=== PATIENT | female | born 1945 | race Caucasian/White ===

== ENCOUNTER → 2016-09-08 | Outpatient (CLI) | payer MEDICARE | LOC: GMAB 17:37 | PROVIDERS: ATTEND Family Medicine | DX: L08.9 Local infection of the skin and subcutaneous tissue, unspecified (principal) ==

== ENCOUNTER 2016-11-07 08:18 | Inpatient (IN) | payer MEDICARE, MEDICAID ==
[2016-11-07] MEDS ORDERED: IPRATROPIUM/ALBUTEROL 3 ML VIAL NEB ONE (08:24)
--- NOTE | 2016-11-07 08:29 | ED.PDOC ---
History of Present Illness - General Chief Complaint: Respiratory Problem Stated Complaint: Shortness of breath and chills Time Seen by Provider: 11/07/16 08:24 Source: patient, RN notes reviewed, Vital Signs reviewed, EMS Exam Limitations: no limitations - History of Present Illness Initial Comments: Patient is bedbound @ the halfway. She had a dream she could walk this morning and when she woke up she was 1/2 off the bed. She was very SOB and was off her BIPAP that she uses at night. Nurses @ halfway got O2 sat of 60% so put her back on BIPAP and called EMS. She is on O2 3L daily. EMS noted O2 sat of 72% on finger but has poor circulations so switched O2 monitor to her ear and got 97% on 2L NC. Currently patient is c/o SOB and being really cold. Timing/Duration: 1-3 hours Severity: moderate Activities at Onset: rest Possible Cause: chronic episodes - has COPD on O2 daily Improving Factors: nothing Worsening Factors: movement Respiratory Risk Factors: no cause identified Allergies/Adverse Reactions: Allergies Cefazolin [From Ancef] Allergy (Unknown, Verified 08/28/15 11:16) Mupirocin [From Bactroban] Allergy (Verified 08/28/15 11:16) Mushroom Extract Complex Allergy (Verified 08/28/15 11:16) Sulfa Antibiotics Allergy (Verified 08/28/15 11:16) adhesive tape Allergy (Intermediate, Uncoded 03/26/14 12:39) Rash pt got blisters Home Medications: Ambulatory Orders Celecoxib [Celebrex] 200 mg PO DAILY 06/27/12 Gabapentin [Neurontin] 600 mg PO TID 06/27/12 Metoprolol Tartrate [Lopressor] 50 mg PO BID 06/27/12 Multiple Vitamins W/ Minerals [Multi Vitamin/Minerals Fu] 1 tab PO DAILY Amlodipine Besylate [Norvasc] 10 mg PO DAILY 03/26/14 Ascorbic Acid [Vitamin C] 500 mg PO BID 03/26/14 Diltiazem HCl [Cardizem] 120 mg PO DAILY 03/26/14 Ergocalciferol [Vitamin D] 50,000 unit PO WKLY 03/26/14 HYDROcodone 10MG/APAP 325MG [[place] 10/325] 1 tab PO Q4H PRN 03/26/14 Isosorbide Mononitrate [Imdur] 30 mg PO DAILY 03/26/14 Ropinirole Hydrochloride [Requip] 2 mg PO BID 03/26/14 Diphenhydramine HCl 25 mg PO Q6H PRN 08/28/15 Furosemide [Lasix] 80 mg PO DAILY 08/28/15 Potassium Chloride [Micro-K] 10 meq PO TID 08/28/15 Dextran 70/Dextrose [[place] 32-10 %] 1 aleah XX PRN 05/14/16 Isosorbide Mononitrate [Imdur] 30 mg PO DAILY 05/14/16 Lactobacillus Acidophilus [Acidophilus Lactobacillus] 1 pow XX BID 05/14/16 Loperamide HCl 2 mg PO PRN 05/14/16 Magnesium Hydroxide [Milk Of Magnesia] 30 ml PO PRN 05/14/16 Omeprazole [Prilosec] 40 mg PO PRN 05/14/16 Primidone 50 mg PO TID 05/14/16 Rivaroxaban [Xarelto] 20 mg PO DAILY 05/14/16 Simethicone 80 mg PO PRN 05/14/16 Ciprofloxacin [Cipro] 500 mg PO BID #14 tab 05/17/16 Minocycline HCl 100 mg PO BID #14 cap 06/27/16 predniSONE [Prednisone] 10 mg PO BID #14 tab 06/27/16 Review of Systems - Review of Systems Constitutional: States: chills. Denies: diaphoresis, fever, malaise EENTM: States: no symptoms reported Respiratory: States: see HPI, short of breath, wheezing. Denies: cough, stridor Cardiology: States: no symptoms reported Gastrointestinal/Abdominal: States: no symptoms reported Musculoskeletal: States: no symptoms reported, other - Recent leg surgery - on IV antibiotics Skin: States: no symptoms reported Neurological: States: no symptoms reported All other Systems: No Change from Baseline Past Medical History (General) - Patient Medical History Hx Seizures: No Hx Stroke: No Hx Dementia: No Hx Asthma: No Hx of COPD: No Hx Cardiac Disorders: Yes - blood clot in atrium Hx Congestive Heart Failure: Yes Hx Pacemaker: No Hx Hypertension: Yes Hx Thyroid Disease: No Hx Diabetes: No Hx Gastroesophageal Reflux: No Hx Renal Disease: No Hx Cancer: No Hx of HIV: No Hx Hepatitis C: No Hx MRSA: No - Vaccination History Hx Tetanus, Diphtheria Vaccination: No Hx Influenza Vaccination: Yes Hx Pneumococcal Vaccination: Yes - Social History Hx Tobacco Use: No Hx Chewing Tobacco Use: No Hx Alcohol Use: No Hx Substance Use: No Hx Substance Use Treatment: No Hx Depression: No Hx Physical Abuse: No Hx Emotional Abuse: No Hx Suspected Abuse: No - Female History Patient : No Family Medical History - Family History Mother Family History: No Known Living Status: Hx Cardiac Disease: Yes Hx Family Cancer: Yes - urinary bladder Physical Exam - Physical Exam General Appearance: Ill Appearing, Well Developed, Well Hydrated, Well Nourished , Other - Shaking Respiratory: chest non-tender, decreased breath sounds - throughout, accessory muscle use, wheezing, expiration Cardiovascular/Chest: regular rate, rhythm, no gallop, no murmur Progress - Progress Progress: 11/07/16 09:11 Patient does not report much improvement with nebulizer treatment but on exam the wheezing is gone, improved air movement with a lot of rhonchi. - Results/Orders Results/Orders: Laboratory Tests 11/07/16 11/07/16 11/07/16 08:53 08:53 08:53 WBC 7.6 RBC 4.03 L Hgb 13.0 Hct 39.4 MCV 97.8 MCH 32.2 H MCHC 33.1 RDW 15.3 H Plt Count 171 MPV 8.2 Absolute Neuts (auto) 5.70 Absolute Lymphs (auto) 0.90 L Absolute Monos (auto) 0.70 Absolute Eos (auto) 0.30 Absolute Basos (auto) 0.00 Neutrophils % 73.9 Lymphocytes % 12.3 L Monocytes % 9.7 H Eosinophils % 3.6 Basophils % 0.5 Sodium 144 Potassium 4.7 Chloride 95 L Carbon Dioxide 42 H Anion Gap 11.7 L BUN 28 H Creatinine 0.79 BUN/Creatinine Ratio 35.4 H Random Glucose 123 H Serum Osmolality 293.7 Calcium 9.3 Total Bilirubin 0.6 AST 18 ALT 17 Alkaline Phosphatase 126 H B-Natriuretic Peptide 465.0 H* Serum Total Protein 8.6 H Albumin 3.6 Globulin 5.0 H Albumin/Globulin Ratio 0.7 L - EKG/XRAY/CT XRAY: chest - mild pulm edema vs. atypical infectious process Departure - Departure Clinical Impression: A-fib Qualifiers: Atrial fibrillation type: chronic Qualified Code(s): I48.2 - Chronic atrial fibrillation CHF (congestive heart failure) Qualifiers: Congestive heart failure type: unspecified congestive heart failure type Congestive heart failure chronicity: acute Qualified Code(s): I50.9 - Heart failure, unspecified Time of Disposition: : Disposition: Admit Patient Condition: Fair Referrals: Glen Dobson MD [Primary Care Provider] - 1-2 Weeks Home Medications: Ambulatory Orders Celecoxib [Celebrex] 200 mg PO DAILY 06/27/12 Gabapentin [Neurontin] 600 mg PO TID 06/27/12 Metoprolol Tartrate [Lopressor] 50 mg PO BID 06/27/12 Multiple Vitamins W/ Minerals [Multi Vitamin/Minerals Fu] 1 tab PO DAILY Amlodipine Besylate [Norvasc] 10 mg PO DAILY 03/26/14 Ascorbic Acid [Vitamin C] 500 mg PO BID 03/26/14 Diltiazem HCl [Cardizem] 120 mg PO DAILY 03/26/14 Ergocalciferol [Vitamin D] 50,000 unit PO WKLY 03/26/14 HYDROcodone 10MG/APAP 325MG [[place] 10/325] 1 tab PO Q4H PRN 03/26/14 Isosorbide Mononitrate [Imdur] 30 mg PO DAILY 03/26/14 Ropinirole Hydrochloride [Requip] 2 mg PO BID 03/26/14 Diphenhydramine HCl 25 mg PO Q6H PRN 08/28/15 Furosemide [Lasix] 80 mg PO DAILY 08/28/15 Potassium Chloride [Micro-K] 10 meq PO TID 08/28/15 Dextran 70/Dextrose [[place] 32-10 %] 1 aleah XX PRN 05/14/16 Isosorbide Mononitrate [Imdur] 30 mg PO DAILY 05/14/16 Lactobacillus Acidophilus [Acidophilus Lactobacillus] 1 pow XX BID 05/14/16 Loperamide HCl 2 mg PO PRN 05/14/16 Magnesium Hydroxide [Milk Of Magnesia] 30 ml PO PRN 05/14/16 Omeprazole [Prilosec] 40 mg PO PRN 05/14/16 Primidone 50 mg PO TID 05/14/16 Rivaroxaban [Xarelto] 20 mg PO DAILY 05/14/16 Simethicone 80 mg PO PRN 05/14/16 Ciprofloxacin [Cipro] 500 mg PO BID #14 tab 05/17/16 Minocycline HCl 100 mg PO BID #14 cap 06/27/16 predniSONE [Prednisone] 10 mg PO BID #14 tab 06/27/16 Decision To Admit - Decistion To Admit Decision to Admit Reason: Admit from ER Decision to Admit Date: 11/07/16 Decision to Admit Time: 09:52
--- NOTE | 2016-11-07 08:51 | RAD ---
SINGLE VIEW CHEST X-RAY. 11/07/2016 8:24 AM CDT INDICATION: MAIN TECHNIQUE: Single frontal view of the chest was performed. COMPARISON: Chest x-ray 06/27/2016 and 05/16/2016, 1113 FINDINGS: Prominent right hilar opacity. Mildly increased interstitial alveolar opacities. Stable left upper lobe paramediastinal opacity, likely prominent vasculature. Cardiac silhouette is moderately enlarged, unchanged No significant effusion or pneumothorax. Osseous structures unchanged. Upper abdomen is unremarkable. IMPRESSION: Mild pulmonary edema or atypical infectious process. Prominent bilateral hilar prominence. Electronically signed by: Rickey Cagle MD 11/07/2016 8:50 AM CDT
[2016-11-07] MEDS ORDERED: ACETAMINOPHEN 500 MG TAB PO ONE (09:11)
--- NOTE | 2016-11-07 10:52 | HP ---
SUPERVISING PHYSICIAN: Shashank Vidal M.D. CHIEF COMPLAINT: Shortness of breath with chills. HISTORY OF PRESENT ILLNESS: Ms. Pineda is a 71 year-old female patient who resides at [facility]. She was brought in by EMS today to the Emergency Room with significant shortness of breath and chills. It was noted that she reports she had had a dream that she could walk last night and this morning when she awoke, she was half in and half out of bed. She was very short of breath and had been off her BiPAP that she normally uses at night. Initial O2 sats at the shelter indicated they were 60% so she was put back on her BiPAP and at that time EMS was called. She does wear O2 chronically at 3 liters daily. On arrival at the scene, EMS noted her O2 sat was 72%on her finger, but was noted to have poor circulation at which time they switched O2 monitor to her ear and got 97% on 2 liters nasal cannula. The patient presented to the Emergency Department with shortness of breath and cold. The patient does have a significant history of extensive wound care management from a chronic wound on the left leg after having a femur fracture and multiple repairs, and multiple knee revisions with the patient currently on Daptomycin daily for unknown organism pending consultation with wound care management and Dr. Rock, her orthopedic surgeon in [place]. Her laboratory studies showed that she had a normal white count of 7.6 with a normal differential. Chemistries showed carbon dioxide of 42, but otherwise electrolytes were within normal limits. BUN was 28, creatinine was 0.79 with an elevated BNP of 465 which is actually down from previous admissions where it was 515. A single view chest x-ray was completed and as per radiology interpretation there was note of mild pulmonary edema versus and atypical infectious process. Hemodynamically the patient was showing a pulse of 101 with blood pressure 108/ 78 with O2 saturations at 90% with nasal cannula at 2 liters. The patient has had a significant history of having chronic atrial fibrillation and currently on Xarelto. She does have a history of congestive heart failure with last echocardiogram review on August 2011 showing her to have an intracardiac thrombus which at that time she was in atrial fibrillation and was placed on Xarleto. There is no current echocardiogram for review at this point. The patient is notably obese with a current weight of 169.9 kg and does wear a CPAP at night, but notes that she has not been wearing her CPAP normally because she does not like it and it has been causing her to have nightmares. Given the significant hypoxia prior to admission and her shortness of breath along with radiographic studies indicating possibly an atypical infection versus an exacerbation of congestive heart failure, the patient is to be admitted to the Medical/Surgical floor for continuation of treatment and further evaluation. She was admitted in stable condition. PAST MEDICAL HISTORY: 1. Morbid obesity. 2. Hyperlipidemia. 3. Hypertension. 4. Osteoarthritis. 5. Chronic atrial fibrillation with a history of thrombus on Xarelto. 6. Aortic aneurysm followed by Dr. Lauren. Last reported measurement was 4.2 cm. 7. Chronic urinary tract infection with multiple microorganisms with the patient having a chronic indwelling catheter. 8. 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 PAST SURGICAL HISTORY: 1. Cholecystectomy. 2. Bilateral knee replacement with the left knee being recently revised secondary to a femur fracture in July of this year by Dr. Rock with subsequent chronic wound infection with unknown organism and the patient being currently on Daptomycin. 3. Left total hip replacement. 4. Bilateral shoulder surgeries. 5. Right elbow surgery. CURRENT MEDICATIONS: Please refer to the electronic medical records for an updated list of medications that have been verified. 1. Imdur 30 mg daily. 2. Milk of Magnesia 30 mL p.r.n. 3. Neurontin 600 mg 3 times daily. 4. Xarelto 20 mg daily. 5. Simethicone 80 mg p.r.n. 6. Vitamin C 500 twice daily. 7. Requip 2 mg twice daily. 8. Prilosec 40 mg daily. 9. Micro-K 10 mEq 3 times a day. 10. Norvasc 10 mg daily. 11. Primidone 50 mg 3 times a day. 12. Multivitamin 1 tablet daily. 13. Lopressor 50 mg twice daily. 14. Lasix 80 mg daily. 15. Probiotic. 16. Hydrocodone 10/325 one tablet 4 hours p.r.n. 17. Vitamin D 50,000 units weekly. 18. Benadryl 25 mg every 6 hours p.r.n. 19. Cardizem 120 mg daily. 20. Celebrex 200 mg daily. 21. Hyoscine 1 solution p.r.n. 22. Loperamide 2 mg as needed. ALLERGIES: BACTROBAN, ANCEF, SULFA ANTIBIOTICS, ADHESIVE TAPE AND MUSHROOM EXTRACT COMPLEX. FAMILY HISTORY: The patient's mother and father are both . Father had a history of congestive heart failure. Mother had Alzheimer's. SOCIAL HISTORY: The patient lives at [facility]. She denies any history of tobacco abuse. REVIEW OF SYSTEMS: CONSTITUTIONAL: She has note some chills but no reported fever. No unintentional weight loss. HEENT: No reported symptoms. RESPIRATORY: As noted in the History of Present Illness, shortness of breath requiring BiPAP. CARDIOVASCULAR: No chest pains or palpitations. Does have a history of atrial fibrillation currently with a controlled ventricular rate and on Xarelto. GASTROINTESTINAL: No nausea, vomiting, diarrhea, abdominal discomfort or constipation. GENITOURINARY: History of chronic urinary tract infections with a Fitzgerald in place with last exchange of Fitzgerald being within the last 7 days. MUSCULOSKELETAL: History of a previous femur fracture and multiple surgical processes in the left leg with a chronic wound requiring ongoing antibiotic therapy with Daptomycin. NEUROLOGIC: Denies any headaches, dizziness or neurological symptoms. PHYSICAL EXAMINATION: VITAL SIGNS: Temperature 97, pulse 100, blood pressure 108/78, respirations 22 , satting 91% nasal cannula at 2 liters. Admission weight 169.2 kg which is increased from previous admission on 05/2016 at which time she weighed 127 kg. GENERAL: Ill-appearing, obese, well hydrated. The patient appears to be in no acute distress. HEENT: Tympanic membranes are clear bilaterally. Oropharynx was pink and moist without any lesions. NECK: There was no jugular venous distention noted. CHEST: Lungs are diminished towards the bases with just very faint inspiratory wheezing, very difficult to hear due to the patient's extreme body habitus, but no obvious rhonchi or wheezing are noted. CARDIOVASCULAR: Regular rate and rhythm with a controlled ventricular rate as noted on the bedside monitor with no appreciable murmurs or rubs. ABDOMEN: Severely obese but soft, non-tender with positive bowel sounds. EXTREMITIES: No clubbing or cyanosis, but there is just a trace of bilateral edema which appears to be chronic for this patient's body habitus. Left knee has Steri-Strips in place overlying the patellar area with some greenish drainage noted. NEUROLOGIC: She is alert and oriented times three. Cranial nerves II-XII are grossly intact. Facial features were symmetrical. Extraocular movements are within normal limits. There was no notable localizing or lateralizing neuromotor deficits. LABORATORY: White count on admission was 7.6, hemoglobin 13.0, hematocrit 39.4 , platelet count 171,000. Differential showed to be within normal limits. Chemistries showed normal electrolytes with potassium 4.7. She did have an elevated carbon dioxide of 42 with BUN 28, creatinine 0.79 which appears to be her baseline renal function compared to previous laboratory studies. Glucose 123. Liver functions showed to be within normal limits except for just an elevated alkaline phosphatase at 126. BNP was elevated at 465. Urinalysis showed 100 protein with positive nitrites, small leukocyte esterase with microscopic revealing zero RBCs, 10 to 20 WBCs, 3 to 5 epithelials and 4+ bacteria from a catheterized specimen. MICROBIOLOGY: Blood cultures are pending. Wound culture of the left knee pending. MRSA surveillance culture is pending and urine culture is pending. RADIOLOGY: Single view chest x-ray performed in the Emergency Room prior to admission per radiology interpretation showed mild pulmonary edema versus atypical infectious process with prominent bilateral hilar prominence. ASSESSMENT: 1. Acute on chronic congestive heart failure with exacerbation with an elevated BNP on admission with some pulmonary edema as noted on radiographic studies. 2. Acute respiratory failure with hypercapnia secondary to body habitus with the patient being noncompliant with her CPAP/BiPAP with concerns for atypical pneumonia likely healthcare acquired as noted on radiographic studies with the patient having been on multiple antibiotics and currently on Daptomycin. 3. 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 Rock in [place], [place]. 4. Morbid obesity contributing to both symptoms of acute respiratory failure and congestive heart failure. 5. Chronic atrial fibrillation currently on Xarelto and has a controlled ventricular rate at time of admission. 6. Hypertension. 7. History of multiple urinary tract infections with the patient having a chronic indwelling Fitzgerald catheter. 8. Gastroesophageal reflux disease. PLAN: The patient will be admitted to the Medical/Surgical floor for continued treatment and evaluation. She does have a PICC line in place. Will continue with her antibiotic therapy with Daptomycin and based off the current urinalysis and pending cultures, will go ahead and start her on Meropenem for concerns for urinary tract infection with multiresistant organisms and a concern for an early atypical pneumonia, therefore will go ahead and add Azithromycin to the antibiotic regimen awaiting sputum cultures. Will culture the drainage from the left knee and continue with her current antibiotic therapy with Daptomycin, and touch base with Dr. Rock in wound management in regards to further management of the knee with the current findings on microbiological cultures. I have encouraged her to wear a BiPAP which she has not been very persistent with, therefore will go ahead and try BiPAP tonight with her previous setting. In regards to possible atypical pneumonia, will start her on aggressive pulmonary hygiene with bronchodilator therapy and again add Azithromycin to her antibiotic therapy. With the concerns for some exacerbation of her congestive heart failure and the radiographic findings, will go ahead and give her additional Lasix 40 mg today and continue with her 80 mg daily, and monitor I's and O's closely. She will be on continuous telemetry and bedside pulse oximetry. Once all medications have been verified and updated in the electronic medical records, we will restart her medications. Will continue with DVT prophylaxis and Xarelto as the patient has already been on Xarelto for chronic atrial fibrillation. Will exchange her Fitzgerald which was just replaced per the patient's note within the last week and pending culture treat with Meropenem until final culture and sensitivity results are available. Will anticipate her length of stay to be a minimum of 2 to 3 days. Until then, will continue to monitor the patient closely and treat appropriately. #[id number] [facility]
[2016-11-07] MEDS ORDERED: SODIUM CHLORIDE 0.9% (FLUSH) 10 ML SYG IV PRN (13:22)
[2016-11-07] MEDS ORDERED: FUROSEMIDE INJ 20 MG/2 ML VIAL IV ONE (13:22)
[2016-11-07] MEDS ORDERED: ACETAMINOPHEN 325 MG TAB PO PRN (13:22)
[2016-11-07] MEDS ORDERED: NITROGLYCERIN 0.4 MG 25 EA TAB SL PRN (13:22)
[2016-11-07] MEDS ORDERED: ONDANSETRON INJ 4 MG/2 ML VIAL IV PRN ×2 (13:22)
[2016-11-07] MEDS ORDERED: ALBUTEROL SULFATE 2.5 MG/3 ML VIAL NEB PRN (13:22)
[2016-11-07] MEDS ORDERED: IV SET AND CAP CHANGE INJ INJ SCH (13:30)
[2016-11-07] MEDS ORDERED: AZITHROMYCIN IV 500 MG VIAL IVPB ONE (14:04)
[2016-11-07] MEDS ORDERED: SODIUM CHLORIDE 0.9% 250ML 250 ML ONE (14:04)
[2016-11-07] MEDS: IV SET AND CAP CHANGE INJ INJ SCH (14:06)
[2016-11-07] MEDS: AZITHROMYCIN IV 500 MG in SODIUM CHLORIDE 0.9% 250ML 250 ML IVPB SCH (14:20)
[2016-11-07] MEDS: IPRATROPIUM/ALBUTEROL 3 ML VIAL NEB SCH ×2 (16:10→20:20)
[2016-11-07] MEDS ORDERED: SODIUM CHL 0.9% 50ML MIN-BAG+ 50 ML IVPB ONE (17:19)
[2016-11-07] MEDS ORDERED: MEROPENEM 1 GM VIAL IVPB ONE (17:20)
[2016-11-07] MEDS: FUROSEMIDE INJ 40 MG/4 ML VIAL IV SCH (17:24)
[2016-11-07] MEDS: MEROPENEM 1 GM in SODIUM CHL 0.9% 50ML MIN-BAG+ 50 ML IVPB SCH (17:30)
[2016-11-07] MEDS: NYSTATIN POWDER 15GM BTTL TOP SCH ×2 (17:34→20:59)
[2016-11-07] MEDS ORDERED: IPRATROPIUM/ALBUTEROL 3 ML VIAL NEB PRN (17:58)
[2016-11-07] MEDS ORDERED: MAGNESIUM HYDROXIDE 30 ML UD PO PRN (18:00)
--- NOTE | 2016-11-07 18:03 | PCM.CORE ---
Physician DVT/VTE - Prophylaxis Currently: Patient already on anticoagulation therapy - xarelto - Nurse DVT Assessment & Total Each Risk Factor Represents 3 Points: Medical PT with Hx of [place], CHF, Severe infection/sepsis Each Risk Factor Represents 2 Points: Age 60-74 Each Risk Factor is 1 Point: Varicose Veins/Edema Legs, Obesity (BMI >25) DVT Assessment Score: 7 - 5 or more Very High Risk Treatments: Early Ambulation *, Sequential Compression Device
[2016-11-07] MEDS ORDERED: hydrOXYzine PAMOATE 25 MG CAP ONE (18:17)
[2016-11-07] MEDS: ELUXADOLINE 75 MG PO SCH ×2 (18:21→20:58)
[2016-11-07] MEDS: ISOSORBIDE MONONITRATE (IMDUR) 30 MG TAB PO SCH (18:22)
[2016-11-07] MEDS: PRIMIDONE 50 MG TAB PO SCH ×2 (18:22→20:58)
[2016-11-07] MEDS ORDERED: diltiaZEM HCL TAB 30 MG TAB ONE (18:27)
[2016-11-07] MEDS ORDERED: RIVAROXABAN 10 MG TAB ONE (19:59)
[2016-11-07] MEDS ORDERED: GABAPENTIN 300 MG CAP ONE (20:00)
[2016-11-07] MEDS: DILTIAZEM HCL 120 MG PO SCH (20:56)
[2016-11-07] MEDS: FUROSEMIDE 40 MG TAB PO SCH (20:59)
[2016-11-07] MEDS ORDERED: ROPINIROLE HYDROCHLORIDE 2 MG PO SCH (21:00)
[2016-11-07] MEDS ORDERED: LACTOBACILLUS ACIDOPHILUS XX SCH (21:00)
[2016-11-07] MEDS: ASCORBIC ACID 500 MG TAB PO SCH (21:00)
[2016-11-07] MEDS ORDERED: METOPROLOL TARTRATE 50 MG TAB PO SCH (21:00)
[2016-11-07] MEDS ORDERED: NON-FORMULARY MEDICATION 1 EA MIS (Gabapentin [Neurontin] 600 MG) PO SCH (21:00)
[2016-11-07] MEDS ORDERED: NON-FORMULARY MEDICATION 1 EA MIS (Rivaroxaban [Xarelto] 20 MG) PO SCH (21:00)
[2016-11-07] MEDS: HYDROcodone 10MG/APAP 325MG 1 EA TAB PO PRN (21:03)
[2016-11-07] MEDS ORDERED: SODIUM CHLORIDE 0.9% 50ML 50 ML ONE (21:38)
[2016-11-07] MEDS: SODIUM CHLORIDE 0.9% (FLUSH) 10 ML SYG IV PRN (22:28)
[2016-11-07] MEDS: DAPTOMYCIN 500 MG VIAL IVPB SCH (22:28)
[2016-11-08] MEDS ORDERED: SODIUM CHL 0.9% 50ML MIN-BAG+ 50 ML IVPB ONE ×4 (00:59→23:48)
[2016-11-08] MEDS ORDERED: MEROPENEM 1 GM VIAL IVPB ONE ×4 (01:00→23:48)
[2016-11-08] MEDS: SODIUM CHLORIDE 0.9% (FLUSH) 10 ML SYG IV PRN (01:27)
[2016-11-08] MEDS: MEROPENEM 1 GM in SODIUM CHL 0.9% 50ML MIN-BAG+ 50 ML IVPB SCH ×3 (01:28→18:59)
[2016-11-08] MEDS: HYDROcodone 10MG/APAP 325MG 1 EA TAB PO PRN (02:11)
--- NOTE | 2016-11-08 07:06 | RAD ---
EXAM DESCRIPTION: Chest,1 View CLINICAL HISTORY: Pneumonia COMPARISON: November 07, 2016 FINDINGS: The cardiomediastinal silhouette is enlarged but stable. There is no airspace consolidation or pleural effusion. The bronchovascular markings are within normal limits, improved from the patient's prior exam. There is no pneumothorax or acute fracture. IMPRESSION: Cardiomegaly with interval improvement in appearance of the pulmonary vascular markings. No new abnormality. Electronically signed by: Antonio Carter MD 11/08/2016 7:05 AM CDT
[2016-11-08] MEDS ORDERED: MULTIPLE VITAMIN 1 EA TAB PO ONE (08:17)
[2016-11-08] MEDS ORDERED: POTASSIUM CHLORIDE 20 MEQ TAB ONE (08:18)
[2016-11-08] MEDS ORDERED: SIMETHICONE 80 MG TAB PO PRN (08:37)
[2016-11-08] MEDS: IPRATROPIUM/ALBUTEROL 3 ML VIAL NEB SCH ×4 (09:10→19:38)
[2016-11-08] MEDS: LACTOBACILLUS 1 TAB PO SCH ×4 (09:45→20:40)
[2016-11-08] MEDS: DILTIAZEM HCL 120 MG PO SCH (09:48)
[2016-11-08] MEDS: OMEPRAZOLE CAP 20 MG CAP PO SCH (09:50)
[2016-11-08] MEDS: ELUXADOLINE 75 MG PO SCH (09:50)
[2016-11-08] MEDS: GABAPENTIN 300 MG CAP PO SCH ×3 (09:51→20:59)
[2016-11-08] MEDS: CELECOXIB 100 MG CAP PO SCH (09:51)
[2016-11-08] MEDS: ISOSORBIDE MONONITRATE (IMDUR) 30 MG TAB PO SCH (09:51)
[2016-11-08] MEDS: amLODIPine BESYLATE 5 MG TAB PO SCH (09:51)
[2016-11-08] MEDS: PRIMIDONE 50 MG TAB PO SCH ×3 (09:52→21:00)
[2016-11-08] MEDS: FUROSEMIDE 40 MG TAB PO SCH (09:52)
[2016-11-08] MEDS: ASCORBIC ACID 500 MG TAB PO SCH ×2 (09:52→20:59)
[2016-11-08] MEDS: FERROUS SULFATE 325 MG TAB PO SCH (09:52)
[2016-11-08] MEDS: POTASSIUM CHLORIDE 20 MEQ TAB PO SCH (09:52)
[2016-11-08] MEDS: METOPROLOL TARTRATE 50 MG TAB PO SCH ×2 (09:52→17:37)
[2016-11-08] MEDS: FUROSEMIDE INJ 40 MG/4 ML VIAL IV SCH ×2 (09:53→18:53)
[2016-11-08] MEDS: NYSTATIN POWDER 15GM BTTL TOP SCH ×4 (10:08→22:38)
[2016-11-08] MEDS: MULTIPLE VITAMINS W/ MINERALS 1 EA TAB PO SCH (10:11)
[2016-11-08] MEDS ORDERED: AZITHROMYCIN IV 500 MG VIAL IVPB ONE (14:11)
[2016-11-08] MEDS ORDERED: SODIUM CHLORIDE 0.9% 250ML 250 ML ONE (14:11)
[2016-11-08] MEDS: AZITHROMYCIN IV 500 MG in SODIUM CHLORIDE 0.9% 250ML 250 ML IVPB SCH (14:12)
[2016-11-08] MEDS: RIVAROXABAN 10 MG TAB PO SCH (20:59)
[2016-11-08] MEDS ORDERED: SODIUM CHLORIDE 0.9% 50ML 50 ML ONE (21:58)
[2016-11-08] MEDS: traMADol HCL 50 MG TAB PO PRN (22:36)
[2016-11-08] MEDS: DAPTOMYCIN 500 MG VIAL IVPB SCH (22:36)
[2016-11-08] MEDS: SODIUM CHLORIDE 0.9% 1000ML 1,000 ML IVS PRN (23:03)
[2016-11-08] MEDS: IV SET AND CAP CHANGE INJ INJ SCH (23:44)
[2016-11-09] MEDS: MEROPENEM 1 GM in SODIUM CHL 0.9% 50ML MIN-BAG+ 50 ML IVPB SCH ×3 (00:56→17:30)
[2016-11-09] MEDS: OMEPRAZOLE CAP 20 MG CAP PO SCH (06:09)
--- NOTE | 2016-11-09 07:51 | PN ---
SUPERVISING PHYSICIAN: Shashank Vidal MD DATE: 11/08/16 SUBJECTIVE: The patient is now starting to have a productive cough. She does remain afebrile. OBJECTIVE: VITAL SIGNS: Temperature 97.9. Pulse 95. Blood pressure 136/75. Respirations 18. Saturation 90% to 91% on nasal cannula at 1 liter. I&Os show a negative balance of 990 with 1410 in, 2400 out. She has had one bowel movement. Weight is 169.4 kg, which is down from admission of 169.9 kg. CHEST: Lung sounds are diminished towards the bases. She still continues to have some coarse rhonchi sounds on the right side compared to the left with no obvious wheezing or rales. HEART: Slightly irregular rate and rhythm. ABDOMEN: Obese, but soft and nontender. Positive bowel sounds. EXTREMITIES: Notably obese extremities, but no obvious edema. Wound to left knee continues to have some purulent green drainage. NEUROLOGIC: Alert and oriented times three. LABORATORY: CBC continues to show normal white count of 6.8 with hemoglobin 12 , hematocrit 36.3, platelet count 160,000. Differential within normal limits. Chemistries show normal electrolytes with potassium 3.9, carbon dioxide is somewhat improved, down from 42 to 40 today. BUN has improved a little bit to 26. Creatinine remains within normal limits at 0.67. Glucose 108, calcium 8.9. MICROBIOLOGY: Urine culture preliminary shows presumptive proteus species. Wound culture from the left knee again shows a presumptive proteus species. MRSA surveillance culture remains negative at 24 hours. Blood cultures remain negative at 24 hours. Sputum culture showing a normal ting at 24 hours. RADIOLOGY: Repeat single view chest x-ray today per radiology interpretation continues to show cardiomegaly with interval improvement in appearance of the pulmonary vascular markings. No new abnormalities noted. ASSESSMENT: 1. Acute on chronic congestive heart failure with exacerbation with an elevated BNP on admission with some pulmonary edema as noted on radiographic studies, showing improvement after additional Lasix. 2. Acute respiratory failure with hypercapnia secondary to body habitus with the patient being noncompliant with her CPAP with concerns for atypical pneumonia, likely healthcare acquired as noted on radiographic studies with the patient having been on multiple antibiotics and currently on Daptomycin. 3. 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 Benites ([phone]), as well as Dr. Rock in [place], [place]. Preliminary culture results showing a proteus species. 4. Morbid obesity contributing to both symptoms of acute respiratory failure and congestive heart failure. 5. Chronic atrial fibrillation currently on Xarelto and has a controlled ventricular rate on admission. 6. Hypertension. 7. History of multiple urinary tract infections with the patient having a chronic indwelling Fitzgerald catheter with cultures showing presumptive proteus species. 8. Gastroesophageal reflux disease. PLAN: We will continue with antibiotic therapy today to include Rocephin and meropenem and Daptomycin as previous to admission. Microbiology noted that both the urine and her knee wound showed similar appearances to possibly a proteus species. Typically, proteus has been sensitive to meropenem. Given current situation regarding proteus and concern for atypical pneumonia, we will continue with antibiotic therapy until we have final culture results. I did touch base today with Dr. Benites's office who actually had not seen the patient in the office, only in consultation in the hospital. I will await those notes to further assess the full details of current treatment plan with Daptomycin. We will continue with aggressive pulmonary hygiene and await final sputum culture results. We did replace the Fitzgerald and we will await final culture results in regards to antibiotic treatment. We will anticipate additional 2 to 3 days of hospitalization awaiting final culture results and clinically resolution of possibly underlying pneumonia versus congestive heart failure. She did respond well to additional Lasix dose and we will again add 40 mg of IV Lasix to her normal Lasix regimen today. Until discharge, we will continue to monitor the patient closely and treat appropriately. #[id number] [facility]
[2016-11-09] MEDS: POTASSIUM CHLORIDE 20 MEQ TAB PO SCH (08:01)
[2016-11-09] MEDS: METOPROLOL TARTRATE 50 MG TAB PO SCH ×2 (08:01→17:30)
[2016-11-09] MEDS: FERROUS SULFATE 325 MG TAB PO SCH (08:01)
[2016-11-09] MEDS: ELUXADOLINE 75 MG PO SCH (08:37)
[2016-11-09] MEDS: CELECOXIB 100 MG CAP PO SCH (08:38)
[2016-11-09] MEDS: DILTIAZEM HCL 120 MG PO SCH (08:38)
[2016-11-09] MEDS: MULTIPLE VITAMINS W/ MINERALS 1 EA TAB PO SCH (08:39)
[2016-11-09] MEDS: ISOSORBIDE MONONITRATE (IMDUR) 30 MG TAB PO SCH (08:39)
[2016-11-09] MEDS: PRIMIDONE 50 MG TAB PO SCH ×3 (08:39→21:38)
[2016-11-09] MEDS: GABAPENTIN 300 MG CAP PO SCH ×3 (08:39→21:38)
[2016-11-09] MEDS: amLODIPine BESYLATE 5 MG TAB PO SCH (08:39)
[2016-11-09] MEDS: FUROSEMIDE INJ 40 MG/4 ML VIAL IV SCH ×2 (08:40→17:29)
[2016-11-09] MEDS ORDERED: SODIUM CHL 0.9% 50ML MIN-BAG+ 50 ML IVPB ONE ×3 (08:44→23:58)
[2016-11-09] MEDS ORDERED: MEROPENEM 1 GM VIAL IVPB ONE ×3 (08:44→23:58)
[2016-11-09] MEDS: ASCORBIC ACID 500 MG TAB PO SCH ×2 (08:46→21:38)
[2016-11-09] MEDS: LACTOBACILLUS 1 TAB PO SCH ×4 (08:47→21:37)
[2016-11-09] MEDS: NYSTATIN POWDER 15GM BTTL TOP SCH ×4 (08:54→21:38)
[2016-11-09] MEDS: IPRATROPIUM/ALBUTEROL 3 ML VIAL NEB SCH ×4 (09:19→19:53)
[2016-11-09] MEDS: AZITHROMYCIN 250 MG TAB PO SCH (13:16)
[2016-11-09] MEDS ORDERED: FUROSEMIDE INJ 20 MG/2 ML VIAL IV ONE (21:00)
[2016-11-09] MEDS ORDERED: POTASSIUM CHLORIDE 20 MEQ TAB PO ONE (21:00)
[2016-11-09] MEDS: RIVAROXABAN 10 MG TAB PO SCH (21:38)
[2016-11-09] MEDS: HYDROcodone 10MG/APAP 325MG 1 EA TAB PO PRN (22:05)
[2016-11-09] MEDS ORDERED: SODIUM CHLORIDE 0.9% 50ML 50 ML ONE (22:15)
[2016-11-09] MEDS: DAPTOMYCIN 500 MG VIAL IVPB SCH (22:37)
[2016-11-10] MEDS ORDERED: SODIUM CHLORIDE 0.9% 250ML 0 ML ONE (00:05)
[2016-11-10] MEDS: SODIUM CHLORIDE 0.9% 1000ML 1,000 ML IVS PRN (00:09)
[2016-11-10] MEDS: MEROPENEM 1 GM in SODIUM CHL 0.9% 50ML MIN-BAG+ 50 ML IVPB SCH ×3 (00:40→16:57)
[2016-11-10] MEDS: traMADol HCL 50 MG TAB PO PRN (04:36)
[2016-11-10] MEDS: OMEPRAZOLE CAP 20 MG CAP PO SCH (06:23)
--- NOTE | 2016-11-10 06:58 | RAD ---
Procedure: XR CHEST 1 VIEW Exam Date: 11/10/2016 Ordering Provider: Collins Guevara Clinical Indication: chf vs pneumonia Comparison: 11/08/2016 Findings: Cardiac silhouette: Enlarged Pulmonary vasculature : Prominence of the central pulmonary vasculature and interstitium bilaterally without jennifer pulmonary edema. Mediastinal contour: Normal Aortic contour: Aortic calcification. Focal lung consolidation: None Pleural effusion: None Pneumothorax: None Acute bony or soft tissue abnormality: None Impression: 1. Cardiomegaly. 2. Prominence of the central pulmonary vasculature and interstitium bilaterally without jennifer pulmonary edema. Electronically signed by: Dom Shaffer MD 11/10/2016 6:57 AM CDT
[2016-11-10] MEDS ORDERED: SODIUM CHL 0.9% 50ML MIN-BAG+ 50 ML IVPB ONE ×2 (08:28→15:04)
[2016-11-10] MEDS ORDERED: MEROPENEM 1 GM VIAL IVPB ONE ×2 (08:29→15:05)
--- NOTE | 2016-11-10 08:32 | PN ---
SUPERVISING PHYSICIAN: Jae Godfrey MD DATE: 11/09/16 SUBJECTIVE: The patient is having less shortness of breath. She has been wearing her BiPAP and she remains afebrile. She is having some diarrhea now and we have stool studies pending. OBJECTIVE: VITAL SIGNS: Temperature 97.9. Pulse 96. Blood pressure 135/72. Respirations 19. O2 saturation 100% on nasal cannula at 3 liters at rest. I& Os show negative balance of 1252 with 1723 in, 2975 out. She has had 2 bowel movements. Weight down to 165.5 kg from admission of 169.6 kg. CHEST: Lungs are better aerated today. There are just very faint rhonchi heard on more lateral right base area, but no wheezing, although breath sounds are diminished towards the bases and it is very difficult to fully assess with the patient's body habitus. HEART: Slightly irregular rate and rhythm with no notable gallops or rubs. ABDOMEN: Obese, but soft and nontender. Positive bowel sounds. EXTREMITIES: No cyanosis, clubbing or edema. NEUROLOGIC: Alert and oriented times three. LABORATORY: White count remains within normal limits at 7.3. Hemoglobin and hematocrit are stable at 12.8 and 38.7. Platelet count 170,000. Differential without left shift. Chemistries today show sodium 144, potassium 3.7, carbon dioxide continues to be elevated at 42, BUN 23 which is improved from admission of 28, creatinine within normal limits at 0.65, calcium 9.3. MICROBIOLOGY: Sputum culture showed normal ting at 48 hours. Urine culture showed proteus mirabilis. Final culture fairly resistant pattern, but sensitive to cephalosporins, however, the patient is allergic to cephalosporins , but meropenem is showing to be sensitive. Wound culture showed another proteus mirabilis with a slightly different sensitivity pattern, showing intermediate to levofloxacin and resistant to cephalosporins, but sensitive to meropenem. Blood cultures remain negative at 48 hours. ASSESSMENT: 1. Acute on chronic congestive heart failure with exacerbation with an elevated BNP on admission with some pulmonary edema as noted on radiographic studies, showing improvement with additional daily Lasix. 2. Acute respiratory failure with hypercapnia secondary to body habitus with the patient being fairly noncompliant with her CPAP at night with concerns for an atypical pneumonia, likely healthcare acquired, as noted on radiographic studies with the patient having been on multiple antibiotics in the past and currently on meropenem and Daptomycin. 3. 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 Benites ([phone]), as well as Dr. Rock in [place], [place]. Culture results as noted show proteus mirabilis sensitive to meropenem with the patient currently on meropenem. 4. Morbid obesity, contributing to both symptoms of acute respiratory failure and congestive heart failure. 5. Chronic atrial fibrillation, currently on Xarelto and has a controlled ventricular rate since admission. 6. Hypertension. 7. History of multiple urinary tract infections with the patient having a chronic indwelling Fitzgerald catheter with the catheter just being [facility] this past [facility] and again replaced on admission with cultures showing proteus mirabilis, being sensitive to meropenem. 8. Gastroesophageal reflux disease. PLAN: We will continue antibiotic therapy today with meropenem for treatment of the urinary tract infection with proteus and continue with Daptomycin as previous to admission with concerns for a prosthetic infection that was noted to be more likely coagulation negative staph. I did again touch base with Dr. Benites's office. She was actually supposed to see the patient yesterday, however , the patient was here. We will continue with Daptomycin, meropenem and azithromycin. She does show some improvement in regards to her vascular congestion and there is still the underlying concern for pneumonia. We will plan to repeat a chest x-ray in the morning and again chemistries after CBC showing to be stable. Anticipate hopefully discharge tomorrow. Once the patient is discharged back to [facility], she will need close followup with both Dr. Benites and Dr. Rock in regards to the new findings of the proteus from the knee wound as well as ongoing treatment of the previous infection with Daptomycin. Until discharge, we will continue to monitor the patient closely and treat appropriately. #[id number] [facility]
[2016-11-10] MEDS: POTASSIUM CHLORIDE 20 MEQ TAB PO SCH (08:44)
[2016-11-10] MEDS: FERROUS SULFATE 325 MG TAB PO SCH (08:44)
[2016-11-10] MEDS: METOPROLOL TARTRATE 50 MG TAB PO SCH ×2 (08:44→16:57)
[2016-11-10] MEDS: amLODIPine BESYLATE 5 MG TAB PO SCH (08:45)
[2016-11-10] MEDS: ASCORBIC ACID 500 MG TAB PO SCH (08:45)
[2016-11-10] MEDS: MULTIPLE VITAMINS W/ MINERALS 1 EA TAB PO SCH (08:45)
[2016-11-10] MEDS: GABAPENTIN 300 MG CAP PO SCH ×2 (08:45→15:14)
[2016-11-10] MEDS: FUROSEMIDE INJ 40 MG/4 ML VIAL IV SCH ×2 (08:46→16:56)
[2016-11-10] MEDS: PRIMIDONE 50 MG TAB PO SCH ×2 (08:46→15:14)
[2016-11-10] MEDS: LACTOBACILLUS 1 TAB PO SCH ×3 (08:46→16:57)
[2016-11-10] MEDS: CELECOXIB 100 MG CAP PO SCH (08:46)
[2016-11-10] MEDS: ISOSORBIDE MONONITRATE (IMDUR) 30 MG TAB PO SCH (08:46)
[2016-11-10] MEDS: DILTIAZEM HCL 120 MG PO SCH (08:48)
[2016-11-10] MEDS: ELUXADOLINE 75 MG PO SCH (08:48)
[2016-11-10] MEDS: NYSTATIN POWDER 15GM BTTL TOP SCH ×3 (08:57→17:08)
[2016-11-10] MEDS: IPRATROPIUM/ALBUTEROL 3 ML VIAL NEB SCH ×2 (09:30→13:02)
[2016-11-10 15:13] VITALS: BP 97/65; TEMP 96.8; O2SAT 95
[2016-11-10] MEDS: IV SET AND CAP CHANGE INJ INJ SCH (15:14)
[2016-11-10] MEDS: AZITHROMYCIN 250 MG TAB PO SCH (15:14)
[2016-11-14] MEDS ORDERED: ERGOCALCIFEROL 50000 UNIT PO SCH (09:00)
--- NOTE | 2016-11-23 11:14 | DS ---
SUPERVISING PHYSICIAN: John Godfrey MD DISCHARGE DIAGNOSIS: 1. Acute on chronic congestive heart failure with exacerbation with an elevated BNP on admission with some pulmonary edema as noted on radiographic studies, showing improvement with additional daily Lasix. 2. Acute respiratory failure with hypercapnia secondary to body habitus with the patient being fairly noncompliant with her CPAP at night with concerns for an atypical pneumonia, likely healthcare acquired, as noted on radiographic studies with the patient having been on multiple antibiotics in the past and currently on meropenem and Daptomycin. 3. 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 Benites ([phone]), as well as Dr. Rock in [place], [place]. Culture results as noted show proteus mirabilis sensitive to meropenem with the patient currently on meropenem. 4. Morbid obesity, contributing to both symptoms of acute respiratory failure and congestive heart failure. 5. Chronic atrial fibrillation, currently on Xarelto and has a controlled ventricular rate since admission. 6. Hypertension. 7. History of multiple urinary tract infections with the patient having a chronic indwelling Fitzgerald catheter with the catheter just being [facility] this [facility] week at the shelter and again replaced on admission with cultures showing proteus mirabilis, being sensitive to meropenem. 8. Gastroesophageal reflux disease. HISTORY OF PRESENT ILLNESS: This is a 71-year-old female patient who is a resident of [facility]. She was brought to the Emergency Room on the date of admission for significant shortness of breath and chills. She had been off her BiPAP the previous night and found that her initial O2 sats at the shelter were 60%, but after putting her back on her BiPAP, her O2 sats were only 72%, but she had very poor circulation, but the sat readings they got on her ear were 97%. In the Emergency Room, she presented with shortness of breath and she was very cold. She does have a significant history of extensive wound care management from a chronic wound on the left leg after having a femur fracture with multiple repairs and multiple knee revisions with the patient currently on Daptomycin daily for unknown organism pending consultation with wound care management and Dr. Rock, her orthopedic surgeon in [place]. Her initial lab studies showed she had a white count of 7.6 with a normal differential. Chemistries were basically within normal limits except carbon dioxide was 42. BNP was elevated at 465, which is actually down from previous admission, which was 515. Her chest x-ray showed some mild pulmonary edema versus atypical infectious process. 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 She wears CPAP at night. She was admitted to the Floor in stable condition. HOSPITAL COURSE: She does have a PICC line in place, so she was continued with her antibiotic therapy of Daptomycin and was started on meropenem for concerns for a urinary tract infection with multidrug resistant organism. She had a Fitzgerald catheter that was changed out at the hospital. There were concerns for early atypical pneumonia, so azithromycin was added to the antibiotic regimen and her sputum cultures showed normal ting at 48 hours. She was given some additional Lasix and diuresed well. The urine culture showed proteus mirabilis and it was sensitive to Merrem, which she was on. She showed improvement over the next few days. CBC continued to be stable. Her wound culture also showed proteus mirabilis that was also sensitive to meropenem. Her last chest x-ray showed no report of any infectious process. She will be discharged today back to [facility]. DISCHARGE PLAN: The patient will be discharged back to [facility] in stable condition. She is to resume her previous medications as well as her previous diet and activities. She is to continue her Daptomycin as ordered by her infectious disease physician and we will continue with the meropenem for 11 more days. She is to return to the hospital or followup with Dr. Dobson as needed. She is to continue her followup with her infectious disease physician as well as orthopedic surgeon in the [facility] [place] area. DISCHARGE MEDICATIONS: 1. Gabapentin. 2. Celebrex. 3. Metoprolol tartrate. 4. Multivitamins. 5. Requip. 6. Vitamin D. 7. Ascorbic acid. 8. Amlodipine. 9. Diltiazem. 10. Hydrocodone. 11. Diphenhydramine. 12. Xarelto. 13. Simethicone. 14. Omeprazole. 15. Primidone. 16. Lactobacillus. 17. Isosorbide. 18. Viberzi. 19. Tramadol. 20. Tylenol. 21. Tessalon Perles. 22. Potassium chloride. 23. DuoNeb. 24. Christy-Lanta. 25. Furosemide. 26. Ferrous sulfate. 27. Daptomycin. 28. Loperamide. 29. Xopenex. 30. Azithromycin. 31. Meropenem. 32. Nystatin. 33. Sodium chloride flushes. Dr. Godfrey is the collaborating physician and available for consultation. #[id number] [facility]
== END 2016-11-10 19:25 | DRG 291 ==
LOC: ER 08:18 → MS 10:49
PROVIDERS: ADMIT Nurse Practitioner Family; ATTEND Nurse Practitioner Acute Care
DX: I11.0 Hypertensive heart disease with heart failure (principal); J18.9 Pneumonia, unspecified organism; J96.02 Acute respiratory failure with hypercapnia; N39.0 Urinary tract infection, site not specified; T83.511A Infection and inflammatory reaction due to indwelling urethral catheter, initial encounter; I50.9 Heart failure, unspecified; E66.01 Morbid (severe) obesity due to excess calories; I48.2 Chronic atrial fibrillation; K21.9 Gastro-esophageal reflux disease without esophagitis; M19.90 Unspecified osteoarthritis, unspecified site; I71.4 Abdominal aortic aneurysm, without rupture; E78.5 Hyperlipidemia, unspecified; Z99.81 Dependence on supplemental oxygen; T81.89XA Other complications of procedures, not elsewhere classified, initial encounter; S81.002D Unspecified open wound, left knee, subsequent encounter; R19.7 Diarrhea, unspecified; B96.4 Proteus (mirabilis) (morganii) as the cause of diseases classified elsewhere; T84.629D Infection and inflammatory reaction due to internal fixation device of unspecified bone of leg, subsequent encounter; Z16.24 Resistance to multiple antibiotics; Y95 Nosocomial condition; Z96.642 Presence of left artificial hip joint; Z96.653 Presence of artificial knee joint, bilateral; Z91.19 Patient's noncompliance with other medical treatment and regimen; Z79.01 Long term (current) use of anticoagulants; Z88.1 Allergy status to other antibiotic agents; Z88.3 Allergy status to other anti-infective agents; Z79.2 Long term (current) use of antibiotics; Z88.2 Allergy status to sulfonamides; Z79.1 Long term (current) use of non-steroidal anti-inflammatories (NSAID); Z79.891 Long term (current) use of opiate analgesic; Z79.899 Other long term (current) drug therapy

== ENCOUNTER → 2017-05-18 | Outpatient (CLI) | payer MEDICARE, MEDICAID | END | disposition home or self-care (01) | LOC: GMAB 14:38 | PROVIDERS: ATTEND Family Medicine | DX: M79.642 Pain in left hand (principal) ==

== ENCOUNTER → 2017-07-12 | Outpatient (CLI) | payer MEDICARE, MEDICAID | END | disposition home or self-care (01) | LOC: GMAB 15:26 | PROVIDERS: ATTEND Family Medicine | DX: M77.22 Periarthritis, left wrist (principal) ==

== ENCOUNTER → 2017-08-18 | Outpatient (CLI) | payer MEDICARE, MEDICAID ==
--- NOTE | 2017-08-20 11:42 | RAD ---
Three-view left wrist. Indication: PAIN IN LEFT WRIST Comparison: None. Impression: Severe first CMC joint osteoarthritis with complete joint space loss and proximal migration of the first metacarpal. Moderate to severe changes of the STT joint noted as well. Widening of the scapholunate interval up to 6 mm indicating tearing of the scapholunate ligament. The mid waist of the scaphoid pole is difficult to evaluate as is the dorsal margin of the triquetrum on the lateral view. Occult fractures at these sites are difficult to exclude. CT could better evaluate. Moderate osteoarthritis first MCP joint and first IP joint. Osteopenia. If this is a new finding, DEXA scan recommended as well as evaluation for possible osteoporosis treatment. Electronically signed by: Arnaldo Man MD 08/20/2017 11:42 AM [facility]
== END ==
LOC: RAD 08:51
PROVIDERS: ATTEND Orthopaedic Surgery
DX: M19.032 Primary osteoarthritis, left wrist (principal); M85.88 Other specified disorders of bone density and structure, other site

== ENCOUNTER 2017-09-24 15:02 | Observation (INO) | payer MEDICARE, MEDICAID ==
--- NOTE | 2017-09-24 16:24 | RAD ---
PROCEDURE: XR CHEST 1 VIEW HISTORY: ams, transient, hypoxia COMPARISON: 11/10/2016 TECHNIQUE: Single projection of the chest was done. FINDINGS: The lung young are well inflated . There are no discrete airspace infiltrates, pneumothoraces or pleural effusions. There is mild bilateral vascular congestion suspicious for underlying changes of mild volume overload The cardiomediastinal silhouette is stable. IMPRESSION: There is mild bilateral vascular congestion suspicious for underlying changes of mild volume overload Electronically signed by: Ousmane Bernard MD 09/24/2017 4:21 PM CDT Workstation: [id number]
[2017-09-24] MEDS ORDERED: FUROSEMIDE 40 MG TAB PO ONE (17:34)
[2017-09-24] MEDS ORDERED: CIPROFLOXACIN 500 MG TAB PO ONE (17:34)
--- NOTE | 2017-09-24 17:55 | ED.PDOC ---
History of Present Illness - General Chief Complaint: Neuro Symptoms/Deficits Stated Complaint: altered mental status Time Seen by Provider: 09/24/17 15:24 Source: patient - History of Present Illness Initial Comments: the patient is a 72-year-old female presenting from [facility] secondary to altered mental status and a brief period of unresponsiveness. When EMS arrived she was on BiPAP with oxygen saturations at 72%. They took the BiPAP off and placed her on high flow oxygen and her oxygen levels corrected. She has since been able to be weaned back down to her 3-1/2 L. she is, by time of arrival mentating normally. She is not having any chest pain or palpitations. No shortness of breath. She has not had any fevers or productive cough. She does have significant multiple comorbidities including pickwickian syndrome. She is a high risk patient. Timing/Duration: 1 hour Severity: severe Improving Factors: nothing Worsening Factors: nothing Associated Symptoms: denies symptoms Allergies/Adverse Reactions: Allergies Cefazolin [From Ancef] Allergy (Unknown, Verified 08/28/15 11:16) Mupirocin [From Bactroban] Allergy (Verified 08/28/15 11:16) Mushroom Extract Complex Allergy (Verified 08/28/15 11:16) Sulfa Antibiotics Allergy (Verified 08/28/15 11:16) adhesive tape Allergy (Intermediate, Uncoded 03/26/14 12:39) Rash pt got blisters Home Medications: Ambulatory Orders Celecoxib [Celebrex] 200 mg PO DAILY 06/27/12 Gabapentin [Neurontin] 600 mg PO TID 06/27/12 Metoprolol Tartrate [Lopressor] 50 mg PO BID 06/27/12 Multiple Vitamins W/ Minerals [Multi Vitamin/Minerals Fu] 1 tab PO DAILY Amlodipine Besylate [Norvasc] 10 mg PO DAILY 03/26/14 Ascorbic Acid [Vitamin C] 500 mg PO BID 03/26/14 Diltiazem HCl [Cardizem] 120 mg PO DAILY 03/26/14 Ergocalciferol [Vitamin D] 50,000 unit PO WKLY 03/26/14 Ropinirole Hydrochloride [Requip] 2 mg PO BID 03/26/14 Diphenhydramine HCl 50 mg PO Q6H PRN 08/28/15 Isosorbide Mononitrate [Imdur] 30 mg PO DAILY 05/14/16 Magnesium Hydroxide [Milk Of Magnesia] 30 ml PO PRN 05/14/16 Omeprazole [Prilosec] 40 mg PO PRN 05/14/16 Primidone 250 mg PO BID 05/14/16 Rivaroxaban [Xarelto] 20 mg PO BEDTIME 05/14/16 Simethicone 80 mg PO PRN 05/14/16 Acetaminophen [Tylenol] 650 mg PO Q6H PRN 11/07/16 Alum & Mag Hydrox-Simethicone [Christy-[place] 200-200-20 mg/5Ml] 30 ml PO Q8H PRN Ferrous Sulfate 325 mg PO DAILY 11/07/16 Furosemide 40 mg PO BID 11/07/16 Ipratropium/Albuterol [Duoneb] 3 ml NEB RTDAILY PRN 11/07/16 Levalbuterol HCl [Xopenex] 1.25 mg IN Q6H PRN 11/07/16 Loperamide HCl 2 each PO QID PRN 11/07/16 Potassium Chloride [Potassium Chloride ER] 20 meq PO DAILY 11/07/16 Tramadol HCl 50 - 100 mg PO BID PRN 11/07/16 Allopurinol 300 mg PO DAILY 09/24/17 Benzonatate Perles [Tessalon Perles] 100 mg PO PRN 09/24/17 Cetirizine HCl [Zyrtec Allergy] 10 mg PO PRN 09/24/17 Cranberry (Vaccinium Macrocarp [Cranberry] 1,000 mg PO DAILY 09/24/17 Dicyclomine HCl [Bentyl] 10 mg PO BID 09/24/17 Hydrocodone-Acetaminophen [[place] 7.5-325 mg] 1 tab PO BID PRN 09/24/17 Lactobacillus [Acidophilus] 1 cap PO BID 09/24/17 Loteprednol Etabonate [Lotemax] 1 drop BOTH_EYES BID 09/24/17 Melatonin 5 mg PO BEDTIME PRN 09/24/17 Nystatin Powder 1 applic TOP BID 09/24/17 Polyvinyl Alcohol [Artificial Tears] 1 drop BOTH_EYES TID 09/24/17 Review of Systems - Review of Systems Review of Systems: 09/24/17 17:55 the patient does not remember the unresponsive episode of course. Her review of systems is for theday or so prior for any new symptoms. 09/24/17 17:55 Constitutional: States: no symptoms reported EENTM: States: no symptoms reported Respiratory: States: no symptoms reported Cardiology: States: no symptoms reported Gastrointestinal/Abdominal: States: no symptoms reported Genitourinary: States: no symptoms reported Musculoskeletal: States: no symptoms reported Skin: States: no symptoms reported Neurological: States: no symptoms reported Endocrine: States: no symptoms reported All other Systems: No Change from Baseline Past Medical History (General) - Patient Medical History Hx Seizures: No Hx Stroke: No Hx Dementia: No Hx Asthma: No Hx of COPD: No Hx Cardiac Disorders: Yes - blood clot in [facility] Hx Congestive Heart Failure: Yes Hx Pacemaker: No Hx Hypertension: Yes Hx Thyroid Disease: No Hx Diabetes: No Hx Gastroesophageal Reflux: Yes Hx Renal Disease: No Hx Cancer: No Hx of HIV: No Hx Hepatitis C: No Hx MRSA: Yes - she thinks so MRSA Source:: Wound Surgical History: cholecystectomy - Vaccination History Hx Tetanus, Diphtheria Vaccination: No Hx Influenza Vaccination: Yes Hx Pneumococcal Vaccination: Yes - Social History Hx Tobacco Use: No Hx Chewing Tobacco Use: No Hx Alcohol Use: No Hx Substance Use: No Hx Substance Use Treatment: No Hx Depression: No Hx Physical Abuse: No Hx Emotional Abuse: No Hx Suspected Abuse: No - Activities of Daily Living Alf/Assisted Living (if applicable):: [facility] - Female History Patient : No Family Medical History - Family History Mother Family History: No Known Living Status: Hx Cardiac Disease: Yes Hx Family Cancer: Yes - urinary bladder Physical Exam - Physical Exam General Appearance: Alert, Comfortable, No apparent distress Eye Exam: bilateral normal Ears, Nose, Throat: hearing grossly normal, normal ENT inspection, normal pharynx Neck: full range of motion, supple Respiratory: lungs clear, normal breath sounds, no respiratory distress, no accessory muscle use, other - she does have decreased air movement at bilateral lung bases which is not new Cardiovascular/Chest: other - regular rate. Heart sounds are soft. She does have chronic 2+ to 3+ edema to bilateral lower extremities. 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 I believe that this is most likely due to a temporary delivery problem of her oxygen at the facility in which she was staying. However she does have multiple comorbidities that certainly provide other possible sources. The patient will be admitted for monitoring overnight. She'll be placed back on her BiPAP at the settings that she is on at the detention to see if these are adequate for maintaining her oxygenation and ventilation. I see no overt evidence of any pulmonary infection at this time. She does have a small UTI and the urine cultures being performed. She is receiving a dose of ciprofloxacin here for that. She does appear to have some mild fluid overload and is receiving an extra dose of Lasix here currently. Admit for further monitoring. Diagnosis is temporary hypoxic encephalopathy, now corrected. - Results/Orders Results/Orders: Vital Signs - 8 hr 09/24/17 09/24/17 09/24/17 15:11 15:22 15:45 Temperature 98.3 F 97.6 F Pulse Rate [ 84 Left Brachial] Respiratory 20 20 Rate Blood Pressure 140/86 [Left Arm] O2 Sat by Pulse 95 Oximetry 09/24/17 16:21 Temperature Pulse Rate [ 87 Left Brachial] Respiratory 20 Rate Blood Pressure 131/100 [Left Arm] O2 Sat by Pulse 96 Oximetry 09/24/17 15:25 Telemetry .CONTINUOUS 09/24/17 16:06 URINE CULTURE W/COLONY COUNT Stat Laboratory Results - last 24 hr 09/24/17 09/24/17 09/24/17 15:39 15:39 15:39 WBC 6.1 RBC 3.71 L Hgb 12.5 Hct 37.7 MCV 101.5 H MCH 33.6 H MCHC 33.1 RDW 14.8 H Plt Count 136 MPV 8.4 Absolute Neuts (auto) 4.60 Absolute Lymphs (auto) 0.80 L Absolute Monos (auto) 0.50 Absolute Eos (auto) 0.20 Absolute Basos (auto) 0.00 Neutrophils % 75.4 Lymphocytes % 13.4 L Monocytes % 7.9 Eosinophils % 3.0 Basophils % 0.3 PT 11.7 INR 1.040 PTT (SP) 36.8 H pCO2 pO2 HCO3 ABG pH ABG O2 Saturation ABG Base Excess ABG Deoxyhemoglobin Oxyhemoglobin % Carboxyhemoglobin % Methemoglobin % Sat Calc Total Hemoglobin Sodium 142 Potassium 4.6 Chloride 92 L Carbon Dioxide 44 H Anion Gap 10.6 L BUN 18 Creatinine 0.63 BUN/Creatinine Ratio 28.6 H Random Glucose 109 H Serum Osmolality 285.6 Calcium 8.9 Total Bilirubin 0.6 AST 14 ALT 11 Alkaline Phosphatase 97 Creatine Kinase 16 L CK-MB (CK-2) 0.8 CK-MB (CK-2) % Not Reportable Troponin I < 0.02 B-Natriuretic Peptide 235.0 H* Serum Total Protein 7.1 Albumin 3.3 Globulin 3.8 H Albumin/Globulin Ratio 0.9 L Urine Color Urine Appearance Urine pH Ur Specific [place] Urine Protein Urine Glucose (UA) Urine Ketones Urine Blood Urine Nitrite Urine Bilirubin Urine Urobilinogen Ur Leukocyte Esterase Urine RBC Urine WBC Ur Epithelial Cells Urine Bacteria 09/24/17 09/24/17 15:46 16:06 WBC RBC Hgb Hct MCV MCH MCHC RDW Plt Count MPV Absolute Neuts (auto) Absolute Lymphs (auto) Absolute Monos (auto) Absolute Eos (auto) Absolute Basos (auto) Neutrophils % Lymphocytes % Monocytes % Eosinophils % Basophils % PT INR PTT (SP) pCO2 65 H pO2 80 L HCO3 43.8 ABG pH 7.440 ABG O2 Saturation 98.7 ABG Base Excess 16.5 ABG Deoxyhemoglobin 1.2 Oxyhemoglobin % 95.3 Carboxyhemoglobin % 2.4 H Methemoglobin % Sat 1.1 Calc Total Hemoglobin 12.8 Sodium Potassium Chloride Carbon Dioxide Anion Gap BUN Creatinine BUN/Creatinine Ratio Random Glucose Serum Osmolality Calcium Total Bilirubin AST ALT Alkaline Phosphatase Creatine Kinase CK-MB (CK-2) CK-MB (CK-2) % Troponin I B-Natriuretic Peptide Serum Total Protein Albumin Globulin Albumin/Globulin Ratio Urine Color Yellow Urine Appearance Cloudy Urine pH 5.0 Ur Specific [place] <= 1.005 Urine Protein Negative Urine Glucose (UA) Negative Urine Ketones Negative Urine Blood Trace-intact H Urine Nitrite Positive H Urine Bilirubin Negative Urine Urobilinogen 0.2 Ur Leukocyte Esterase Small H Urine RBC 3-5 H Urine WBC 10-20 H Ur Epithelial Cells 3-5 Urine Bacteria 3+ H chest x-ray shows mild CHF. No obvious pneumonia. Departure - Departure Clinical Impression: Hypoxic encephalopathy Disposition: Admit Patient Referrals: Glen Dobson MD [Primary Care Provider] - 1-2 Weeks Home Medications: Ambulatory Orders Celecoxib [Celebrex] 200 mg PO DAILY 06/27/12 Gabapentin [Neurontin] 600 mg PO TID 06/27/12 Metoprolol Tartrate [Lopressor] 50 mg PO BID 06/27/12 Multiple Vitamins W/ Minerals [Multi Vitamin/Minerals Fu] 1 tab PO DAILY Amlodipine Besylate [Norvasc] 10 mg PO DAILY 03/26/14 Ascorbic Acid [Vitamin C] 500 mg PO BID 03/26/14 Diltiazem HCl [Cardizem] 120 mg PO DAILY 03/26/14 Ergocalciferol [Vitamin D] 50,000 unit PO WKLY 03/26/14 Ropinirole Hydrochloride [Requip] 2 mg PO BID 03/26/14 Diphenhydramine HCl 50 mg PO Q6H PRN 08/28/15 Isosorbide Mononitrate [Imdur] 30 mg PO DAILY 05/14/16 Magnesium Hydroxide [Milk Of Magnesia] 30 ml PO PRN 05/14/16 Omeprazole [Prilosec] 40 mg PO PRN 05/14/16 Primidone 250 mg PO BID 05/14/16 Rivaroxaban [Xarelto] 20 mg PO BEDTIME 05/14/16 Simethicone 80 mg PO PRN 05/14/16 Acetaminophen [Tylenol] 650 mg PO Q6H PRN 11/07/16 Alum & Mag Hydrox-Simethicone [Christy-[place] 200-200-20 mg/5Ml] 30 ml PO Q8H PRN Ferrous Sulfate 325 mg PO DAILY 11/07/16 Furosemide 40 mg PO BID 11/07/16 Ipratropium/Albuterol [Duoneb] 3 ml NEB RTDAILY PRN 11/07/16 Levalbuterol HCl [Xopenex] 1.25 mg IN Q6H PRN 11/07/16 Loperamide HCl 2 each PO QID PRN 11/07/16 Potassium Chloride [Potassium Chloride ER] 20 meq PO DAILY 11/07/16 Tramadol HCl 50 - 100 mg PO BID PRN 11/07/16 Allopurinol 300 mg PO DAILY 09/24/17 Benzonatate Perles [Tessalon Perles] 100 mg PO PRN 09/24/17 Cetirizine HCl [Zyrtec Allergy] 10 mg PO PRN 09/24/17 Cranberry (Vaccinium Macrocarp [Cranberry] 1,000 mg PO DAILY 09/24/17 Dicyclomine HCl [Bentyl] 10 mg PO BID 09/24/17 Hydrocodone-Acetaminophen [[place] 7.5-325 mg] 1 tab PO BID PRN 09/24/17 Lactobacillus [Acidophilus] 1 cap PO BID 09/24/17 Loteprednol Etabonate [Lotemax] 1 drop BOTH_EYES BID 09/24/17 Melatonin 5 mg PO BEDTIME PRN 09/24/17 Nystatin Powder 1 applic TOP BID 09/24/17 Polyvinyl Alcohol [Artificial Tears] 1 drop BOTH_EYES TID 09/24/17 Decision To Admit - Decistion To Admit Decision to Admit Reason: Medical Nature Decision to Admit Date: 09/24/17 Decision to Admit Time: 18:01
--- NOTE | 2017-09-24 18:19 | HP ---
SUPERVISING PHYSICIAN: LE BANEGAS MD CHIEF COMPLAINT: Altered mental status. HISTORY OF PRESENT ILLNESS: PAST MEDICAL HISTORY: Ms. Pineda is a 72 year-old female patient who resides at [facility]. She was brought to the Emergency Room by EMS secondary to altered mental status at the facility with a brief episode of unresponsiveness. It was noted that when EMS arrived at the care facility, the patient was on BiPAP without any oxygen and her 02 saturations were 72%. At that point, the removed the BiPAP, placed her on high flow 02 and her oxygen saturations corrected. She was able to be weaned back down to 3 1/2 liters by the time of arrival and was mentating normally once once she was admitted to the Emergency Room. She denied any chest pain, palpitations or any significant shortness of breath. She had not had any recent fevers or cough. She does have a significant history of multiple comorbidities including Pickwickian syndrome. Her initial vital signs on arrival tot he Emergency Department showed she was afebrile with temperature of 98.3, pulse 84, blood pressure 140/86, saturation 95% on 4 liter nasal cannula. Her initial laboratory workup showed she had a normal white count with normal differential. Coagulation studies were unremarkable. Her blood gas analysis showed a pH of 7.44 with PC02 of 65, P02 of 80, saturation 98% on 4-liter nasal cannula at rest. Chemistries showed she had an elevated carbon dioxide of 44 with a BUN of 18, creatinine 0.63. Liver functions all showed to be within normal limits. Troponin less than 0.2. BNP was slightly elevated at 235. Urinalysis was significant for positive intact blood, positive nitrates with small amount of leukoesterase with microscopic revealing 3+ bacteria and pyuria with 10 to 20 WBCs with 3 to 5 RBCs with 3 to 5 epithelials from a urine catheter. She does have a chronic indwelling Fitzgerald catheter and has had a history of multiple urinary tract infections with last noted to be a Klebsiella species which was becoming highly resistant. It is noted from the facility that the Fitzgerald catheter had been replaced as early as yesterday. Given the patient's underlying comorbidities, significant urinary tract infection with risk for high resistance requiring IV antibiotics in the past and past unresponsive episode with some hypoxemia on admission, the patient is now going to be placed in observation for treatment that and evaluation. PAST SURGICAL HISTORY: 1. Morbid obesity with Pickwickian syndrome. 2. Hyperlipidemia. 3. Hypertension. 4. Osteoarthritis. 5. Chronic atrial fibrillation with a history of thrombus on chronic Xarelto. 6. Aortic aneurysm followed by Dr. Lauren. Last reported measurement was 4.2 cm as noted on previous history of present illness in November 2016. 7. Chronic urinary tract infections with multiple microorganisms with the patient having a chronic indwelling Fitzgerald catheter catheter with last reported infection and treatment noted in November of last year with a proteus mirabilis as well as a previous Klebsiella pneumonia with a fairly resistant pattern. 8. Chronic wound to the left femur/knee with multiple knee revisions requiring aggressive and ongoing antibiotic therapy in the past but showing good healing and no complications since completion of treatment. PAST SURGICAL HISTORY: 1. Cholecystectomy. 2. Bilateral knee replacement with the left knee having been replaced secondary to femur fracture in July of [address] Rock and subsequent chronic wound infections having been treated with Daptomycin with good healing and no complications. 3. Left total hip replacement. 4. Bilateral shoulder surgeries. 5. Right elbow surgery. CURRENT MEDICATIONS: Please refer to electronic medical records for an updated list of medications being verified. Medications at time of admission indicated in records show she was on: 1. Tramadol 50 to 100 mg b.i.d. 2. Simethicone 80 mg as needed. 3. Requip 2 mg b.i.d. 4. Xarelto 20 mg at bedtime. 5. Primidone 50 mg 3 times a day. 6. Potassium chloride ER 20 mEq daily. 7. Artificial Tears 1 drop each eye 3 times a day. 8. Prilosec 40 mg as needed.. 9. Nystatin powder as needed. 10. Multivitamins. . 11. Lopressor 50 mg twice daily. 12. Melatonin 5 mg at bedtime as needed. 13. Milk of magnesia 30 mls as needed. 14. Lotemax 1 drop both eyes b.i.d. . 15. Loperamide 2 tablets q.i.d. as needed. . 16. Xopenex 1.25 mg every 6 hours as needed. 17. Probiotic 1 twice a day. 18. Imdur 30 mg daily. 19. Duoneb 3 mls nebulized treatment daily if needed. 20. Greenfield 7.5/325, one b.i.d. as needed. 21. Neurontin 600 mg t.i.d. 22. Lasix 40 mg b.i.d. 23. Iron sulfate 325 mg daily. 24. Vitamin D 50,000 units weekly. 25. Benadryl 15 mg every 6 hours p.r.n. 26. Cardizem 120 mg daily. 27. Bentyl 10 mg b.i.d. 28. Cranberry tablets 1000 mg daily. 29. Zyrtec 10 as needed. 30. Celebrex 200 mg daily. 31. Tessalon Perles 100 mg t.i.d. as needed. 32. Vitamin C 500 mg twice a day. 33. Norvasc 10 mg daily. 34. Allopurinol 300 mg daily. 35. Tylenol 650 mg every 6 hours as needed. ALLERGIES: BACTROBAN, ANCEF, SULFA ANTIBIOTICS, ADHESIVE TAPE AND MUSHROOM EXTRACT COMPLEX. FAMILY HISTORY: The patient's mother and father are both . Father had a history of congestive heart failure. Mother had Alzheimer's. SOCIAL HISTORY: The patient currently resides at [facility]. She denies any history of alcohol or tobacco abuse. REVIEW OF SYSTEMS: CONSTITUTIONAL: Denies any chills, fevers or unintentional weight changes. HEENT: No reported headaches. nasal congestion, sinus congestion, sore throat, earache. RESPIRATORY: No reported shortness of breath,h wheezing, congestion. CARDIOVASCULAR: No chest pains or palpitations. Does have a history of atrial fibrillation currently with a controlled ventricular rate on Xarelto. GASTROINTESTINAL: No nausea, vomiting, diarrhea, abdominal discomfort or constipation. GENITOURINARY: History of chronic urinary tract infections with a indwelling Fitzgerald catheter with last exchange in the last 24 hours. . MUSCULOSKELETAL: History of a previous femur fractures and multiple surgical processes in the left leg but no reported new symptoms. NEUROLOGIC: Denies any headaches, dizziness or other neurological symptoms but as noted in history of present illness prior to admission with some lethargy that resolved with oxygen. PHYSICAL EXAMINATION: VITAL SIGNS: Temperature 97.6, pulse 81, blood pressure 133/86, respirations 20, saturation 92% on room air at rest on admission to the medical/surgical floor. Prior to that in the Emergency Department, initially her blood pressure was 140/86, saturation 94% on nasal cannula at 4 liters at rest. Admission weight 170 kilograms as noted to be up from previous admission on 11/07/16 it was 169.2 kilograms. GENERAL: On admission to the medical/surgical floor, the patient was alert and oriented x 3. She appeared to be resting comfortably in no acute distress. HEENT: Tympanic membranes clear bilaterally. Oropharynx pink and moist without any lesions. NECK: Supple, non-tender, full range of motion with no jugular venous distention. CHEST: Breath sounds were diminished towards the basis but no rhonchi, rales, or wheezes noted. CARDIOVASCULAR: Heart tones were distant but noted to be at a regular rate with no discernible murmurs, rubs, or gallops. ABDOMEN: Morbidly obese but soft, non-tender with positive bowel sounds. EXTREMITIES: Notable bilateral pedal edema at 1+ but no cyanosis or clubbing. NEUROLOGIC: Cranial nerves II through XII grossly intact. Facial features were symmetrical. Extraocular movements within normal limits. There was no notable nystagmus. LABORATORY: White count on admission 6,100, hemoglobin 12.5, hematocrit 37.7, platelet count at 136,000. Differential shows to be without a left shift. Coagulation studies showed a PT of 11.7, PTT of 36.8. Blood gas analysis showed normal pH of 7.4 with PC02 of 65, PO2 of 80, bicarb 43 with a saturation of 98% on 4 liters nasal cannula at rest. Chemistries showed normal electrolytes with potassium 4.6 with carbon dioxide elevated at 44 with BUN of 18, creatinine 0.63, blood sugar 109, calcium 8.9, liver functions all within normal limits. Troponin less than 0.02, BNP slightly elevated at 235. Urinalysis positive for trace intact blood, nitrites and small amount of leukoprotease with microscopic revealing 10 to 20 WBC, 3 to 5 RBC with 3+ bacteria, 3 to 5 epithelials from the Fitzgerald catheter specimen. MICROBIOLOGY: Urine culture was pending. RADIOLOGY: Portable chest x-ray per radiology interpretation was mild bilateral vascular congestion suspicious for underlying changes and mild volume overload. ASSESSMENT: 1. 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 2. Acute on chronic congestive heart failure with mild exacerbation and elevated BNP on admission with some mild vascular congestion noted on initial radiographic studies showing good response with Lasix . 3. Acute respiratory failure with hypercapnia, again secondary to body habitus with complications due to BiPAP with no obvious evidence of infectious process on radiographic studies with a normal white count and the patient being afebrile with patient showing good response with continued oxygen. 4. Morbid obesity contributing to both her acute respiratory failure and exacerbation of congestive heart failure. 5. History of chronic atrial fibrillation on Xarelto with controlled ventricular rate at time of admission. .5. History of hypertension. 6. History of multiple urinary tract infections with current specimen showing a significant pyuria with patient having a chronic indwelling Fitzgerald catheter replaced within the last 24 hours with last review of microbiology specimen showing a proteus mirabilis that was grown on specimen in November of 2016 that was showing a significant resistance pattern to Levaquin, Cipro, Bactrim, Piperacillin , Tobramycin, but sensitive to Meropenem and all generations of cephalosporin with the patient having an allergy to cephalosporins requiring initiation of Meropenem for parenteral antibiotics awaiting final culture results to further target antibiotic therapy. 7. Gastroesophageal reflux disease. 8. Morbid obesity with a body index of 57.2 . 9. Hyperlipidemia. 10. Osteoarthritis. PLAN: The patient will be placed in observation to night for further management of her BiPAP and close monitoring of respiratory effort and 02 saturations as well as cardiac telemetry. Urine culture has been sent, will await final culture results to further target antibiotic therapy. She was given an initial dose of ciprofloxacin in the Emergency Department but given past resistance pattern, I will go ahead and start her on Meropenem awaiting the final culture results to target antibiotic therapy accordingly to those results once available. Will anticipate her length of stay to be at least 1 to 2 days with anticipation of possibly discharging Tuesday once final culture results are available to target antibiotic therapy. Again, will utilize BiPAP at night. Will plan to repeat laboratory studies in the morning. She will be on DVT prophylaxis and Xarelto per protocol. Once clinically stable, the patient will be discharged to continue outpatient treatment plan and return to [facility]. Until the, we will continue to monitor and treat appropriately. #[id number] [facility]
[2017-09-24] MEDS ORDERED: LEVALBUTEROL NEBS 1.25 MG/3 ML VIAL NEB PRN (19:17)
[2017-09-24] MEDS ORDERED: ACETAMINOPHEN 325 MG TAB PO PRN (19:17)
[2017-09-24] MEDS ORDERED: HYDROcodone 7.5MG/APAP 325MG 1 EA TAB ONE (19:21)
[2017-09-24] MEDS ORDERED: HYDROcodone 7.5MG/APAP 325MG 1 EA TAB PO ONE (19:25)
[2017-09-24] MEDS ORDERED: IV SET AND CAP CHANGE INJ INJ SCH (19:30)
[2017-09-24] MEDS ORDERED: MEROPENEM 1 GM VIAL IVPB ONE (20:04)
[2017-09-24] MEDS ORDERED: SODIUM CHL 0.9% 50ML MIN-BAG+ 50 ML IVPB ONE (20:04)
--- NOTE | 2017-09-24 20:27 | PCM.CORE ---
Physician DVT/VTE - Nurse DVT Assessment & Total Each Risk Factor Represents 3 Points: Medical PT with Hx of [place], CHF, Severe infection/sepsis Each Risk Factor Represents 2 Points: Age 60-74 Each Risk Factor is 1 Point: Obesity (BMI >25) DVT Assessment Score: 6 - 5 or more Very High Risk Treatments: Early Ambulation *, Sequential Compression Device Pharmacological: Enoxaparin 40mg SQ Daily
[2017-09-24] MEDS: MEROPENEM 1 GM in SODIUM CHL 0.9% 50ML MIN-BAG+ 50 ML IVPB SCH (20:28)
[2017-09-25] MEDS ORDERED: LEVALBUTEROL NEBS 1.25 MG/3 ML VIAL INH SCH
[2017-09-25] MEDS ORDERED: traMADol HCL 50 MG TAB PO PRN (00:13)
[2017-09-25] MEDS ORDERED: MELATONIN 6 MG PO PRN (00:13)
[2017-09-25] MEDS ORDERED: BENZONATATE PERLES 100 MG CAP PO SCH (00:30)
[2017-09-25] MEDS ORDERED: HYDROcodone 7.5MG/APAP 325MG 1 EA TAB PO PRN (02:44)
[2017-09-25] MEDS ORDERED: SODIUM CHL 0.9% 50ML MIN-BAG+ 50 ML IVPB ONE ×3 (03:03→19:33)
[2017-09-25] MEDS ORDERED: MEROPENEM 1 GM VIAL IVPB ONE ×3 (03:03→19:34)
[2017-09-25] MEDS: SODIUM CHLORIDE 0.9% (FLUSH) 10 ML SYG IV PRN ×2 (03:22→06:19)
[2017-09-25] MEDS: MEROPENEM 1 GM in SODIUM CHL 0.9% 50ML MIN-BAG+ 50 ML IVPB SCH ×3 (03:23→19:51)
[2017-09-25] MEDS: PANTOPRAZOLE SODIUM IV 40 MG VIAL IV SCH (06:19)
--- NOTE | 2017-09-25 06:51 | RAD ---
EXAM: AP CHEST RADIOGRAPH CLINICAL INDICATION: Pneumonia. COMPARISON: Yesterday's chest radiograph at 1610 hours. FINDINGS: Cardiac size remains enlarged. Improving bilateral pulmonary congestion. No pleural effusions or pneumothorax on this single view. No free peritoneal gas. IMPRESSION: Improving chest radiograph. Electronically signed by: Azam Ricketts MD 09/25/2017 6:48 AM CDT
[2017-09-25] MEDS: LEVALBUTEROL NEBS 1.25 MG/3 ML VIAL NEB SCH ×3 (07:48→23:16)
[2017-09-25] MEDS ORDERED: SODIUM CHLORIDE 0.9% (FLUSH) 10 ML SYG IV PRN (08:10)
[2017-09-25] MEDS ORDERED: CRANBERRY PO SCH (09:00)
[2017-09-25] MEDS ORDERED: MAGNESIUM HYDROXIDE 30 ML UD PO PRN (09:00)
[2017-09-25] MEDS ORDERED: ALLOPURINOL 300 MG TAB PO SCH (09:00)
[2017-09-25] MEDS ORDERED: CETIRIZINE HCL 10 MG TAB PO PRN (09:00)
[2017-09-25] MEDS ORDERED: SIMETHICONE 80 MG TAB PO PRN (09:00)
[2017-09-25] MEDS: PRIMIDONE 50 MG TAB PO SCH ×2 (10:00→21:16)
[2017-09-25] MEDS: MULTIPLE VITAMINS W/ MINERALS 1 EA TAB PO SCH (10:00)
[2017-09-25] MEDS: POTASSIUM CHLORIDE 20 MEQ TAB PO SCH (10:00)
[2017-09-25] MEDS: BIFIDOBACTERIUM INFANTIS 4 MG CAP PO SCH (10:00)
[2017-09-25] MEDS: GABAPENTIN 300 MG CAP PO SCH ×3 (10:01→21:18)
[2017-09-25] MEDS: METOPROLOL TARTRATE 50 MG TAB PO SCH ×2 (10:01→16:00)
[2017-09-25] MEDS: FUROSEMIDE 40 MG TAB PO SCH ×2 (10:01→16:00)
[2017-09-25] MEDS: amLODIPine BESYLATE 5 MG TAB PO SCH (10:01)
[2017-09-25] MEDS: ALLOPURINOL 300 MG TAB PO SCH (10:01)
[2017-09-25] MEDS: ISOSORBIDE MONONITRATE (IMDUR) 30 MG TAB PO SCH (10:01)
[2017-09-25] MEDS: FERROUS SULFATE 325 MG TAB PO SCH (10:01)
[2017-09-25] MEDS: DICYCLOMINE HCL 20 MG TAB PO SCH ×2 (10:01→21:18)
[2017-09-25] MEDS: SODIUM CHLORIDE 0.9% (FLUSH) 10 ML SYG IV SCH ×2 (10:02→19:50)
[2017-09-25] MEDS: LOTEPREDNOL ETABONATE BOTH_EYES SCH ×2 (10:36→21:20)
[2017-09-25] MEDS: POLYVINYL ALCOHOL 1.4% OPHTH SOL 1 DROP BOTH_EYES SCH ×3 (10:38→21:19)
[2017-09-25] MEDS: NYSTATIN POWDER 15GM BTTL TOP SCH ×2 (11:38→21:21)
[2017-09-25] MEDS ORDERED: MELATONIN 3 MG TAB PO PRN (13:30)
--- NOTE | 2017-09-25 14:07 | PN ---
SUPERVISING PHYSICIAN: John Godfrey MD DATE: 09/25/17 SUBJECTIVE: The patient feels better this morning. Urine culture is still pending final results. She remains afebrile. She has had no further episodes of hypoxia or decreased mental status. OBJECTIVE: VITAL SIGNS: Temperature 98.5,pulse 79, blood pressure 132/91, respirations 17 , saturation 92% on nasal cannula at rest, 2 liters. I&O: Negative balance of 367 with 183 in and 3800 out with weight of 175 kilogram.s CHEST: Lung sounds are clear bilaterally, just diminished towards the bases. HEART: Regular rate and rhythm. ABDOMEN: Obese but soft, non-tender, positive bowel sounds. EXTREMITIES: There continues to be bilateral pedal edema, 1+. NEUROLOGICAL: She is alert and oriented x 3. LABORATORY: White count 6,000, [id number], hematocrit 39.3, platelet count 126,000, differential shows to be without a left shift. Chemistries this morning shows a slightly decreased carbon dioxide from previous of 41 down from 44. Sodium and potassium remain normal with a BUN of 16, creatinine less than 0.41 and calcium at 9.2. MICROBIOLOGY: Preliminary urine culture shows a gram negative nitesh. RADIOLOGY: Chest x-ray this morning per radiology interpretation of single- view chest, improving chest radiograph.. ASSESSMENT: 1. Hypoxic encephalopathy due to poorly managed BiPAP with patient showing good improvement with high flow oxygen in a patient having a history of Pickwickian syndrome. 2. Acute on chronic congestive heart failure with no current echocardiogram available for review with patient having elevated BNP on admission with mild vascular congestion initially on radiographic studies showing improvement with Lasix and fluid restrictions. 3. Acute respiratory failure with hypercapnia due to extreme body habitus with complications from noncompliant BiPAP usage without any significant evidence upper respiratory infection 4. Morbid obesity contributing to acute respiratory failure and exacerbation of congestive heart failure consistent with Pickwickian syndrome history. 4.. History of hypertension. 5. History of multiple urinary tract infections with current culture showing gram negative nitesh with patient having a chronic indwelling Fitzgerald catheter, having recently been exchanged within the last day patient with culture results pending with the patient being on Meropenem awaiting final culture results. 6. Gastroesophageal reflux disease. 7. Hyperlipidemia. 8. Morbid obesity with a body mass index of 57.2 . 9. Osteoarthritis. PLAN: Will continue with current plan of care with Meropenem and BiPAP. Will await final culture results with anticipation of discharging back to [facility] tomorrow. Will continue with patient's home medications, DVT prophylaxis and once culture results are available, will target antibiotic therapy as appropriate. Until discharge, we will continue to monitor closely and treat appropriately #[id number] [facility]
[2017-09-25] MEDS ORDERED: CELECOXIB 100 MG CAP ONE (14:11)
[2017-09-25] MEDS: CELECOXIB 100 MG CAP PO SCH (16:00)
[2017-09-25] MEDS: HYDROcodone 7.5MG/APAP 325MG 1 EA TAB PO PRN (16:02)
[2017-09-25] MEDS ORDERED: RIVAROXABAN 10 MG TAB PO SCH (21:00)
[2017-09-26] MEDS ORDERED: SODIUM CHL 0.9% 50ML MIN-BAG+ 50 ML IVPB ONE (02:10)
[2017-09-26] MEDS ORDERED: MEROPENEM 1 GM VIAL IVPB ONE (02:11)
[2017-09-26] MEDS: HYDROcodone 7.5MG/APAP 325MG 1 EA TAB PO PRN (02:59)
[2017-09-26] MEDS: SODIUM CHLORIDE 0.9% (FLUSH) 10 ML SYG IV PRN ×2 (03:35→06:06)
[2017-09-26] MEDS: MEROPENEM 1 GM in SODIUM CHL 0.9% 50ML MIN-BAG+ 50 ML IVPB SCH (03:35)
[2017-09-26] MEDS: PANTOPRAZOLE SODIUM IV 40 MG VIAL IV SCH (06:06)
[2017-09-26] MEDS ORDERED: BENZONATATE PERLES 100 MG CAP PO PRN (08:30)
[2017-09-26] MEDS: BIFIDOBACTERIUM INFANTIS 4 MG CAP PO SCH (08:33)
[2017-09-26] MEDS: POTASSIUM CHLORIDE 20 MEQ TAB PO SCH (08:33)
[2017-09-26] MEDS: ISOSORBIDE MONONITRATE (IMDUR) 30 MG TAB PO SCH (08:33)
[2017-09-26] MEDS: DICYCLOMINE HCL 20 MG TAB PO SCH (08:34)
[2017-09-26] MEDS: FUROSEMIDE 40 MG TAB PO SCH (08:34)
[2017-09-26] MEDS: CELECOXIB 100 MG CAP PO SCH (08:34)
[2017-09-26] MEDS: FERROUS SULFATE 325 MG TAB PO SCH (08:36)
[2017-09-26] MEDS: METOPROLOL TARTRATE 50 MG TAB PO SCH (08:36)
[2017-09-26] MEDS: ALLOPURINOL 300 MG TAB PO SCH (08:56)
[2017-09-26] MEDS: MULTIPLE VITAMINS W/ MINERALS 1 EA TAB PO SCH (08:56)
[2017-09-26] MEDS: amLODIPine BESYLATE 5 MG TAB PO SCH (08:57)
[2017-09-26] MEDS: PRIMIDONE 50 MG TAB PO SCH (08:58)
[2017-09-26] MEDS: GABAPENTIN 300 MG CAP PO SCH (08:58)
[2017-09-26] MEDS ORDERED: OMEPRAZOLE CAP 20 MG CAP PO PRN (09:00)
[2017-09-26] MEDS ORDERED: CIPROFLOXACIN 500 MG TAB PO SCH (09:00)
[2017-09-26] MEDS ORDERED: HYDROcodone 7.5MG/APAP 325MG 1 EA TAB PO PRN (09:05)
[2017-09-26] MEDS ORDERED: ALUM & MAG HYDROX-SIMETHICONE 30 ML UD PO PRN (09:05)
[2017-09-26] MEDS ORDERED: diphenhydrAMINE HCL 25 MG CAP PO PRN (09:05)
[2017-09-26] MEDS ORDERED: ACETAMINOPHEN 325 MG TAB PO PRN (09:05)
[2017-09-26] MEDS: LEVALBUTEROL NEBS 1.25 MG/3 ML VIAL NEB SCH (09:05)
[2017-09-26] MEDS ORDERED: IPRATROPIUM/ALBUTEROL 3 ML VIAL NEB PRN (09:05)
[2017-09-26] MEDS: LOTEPREDNOL ETABONATE BOTH_EYES SCH (10:00)
[2017-09-26] MEDS: POLYVINYL ALCOHOL 1.4% OPHTH SOL 1 DROP BOTH_EYES SCH (10:00)
[2017-09-26] MEDS: NYSTATIN POWDER 15GM BTTL TOP SCH (10:01)
[2017-09-26 13:31] VITALS: O2SAT 99
--- NOTE | 2017-09-26 13:36 | DS ---
SUPERVISING PHYSICIAN: Shashank Vidal MD ADMISSION DIAGNOSIS: 1. Hypoxic encephalopathy. 2. Acute on chronic congestive heart failure. 3. Acute respiratory failure with hypercapnia. 4. Morbid obesity. 5. Chronic atrial fibrillation. 6. Hypertension. 7. History of multiple urinary tract infections. DISCHARGE DIAGNOSIS: 1. Improved hypoxic encephalopathy. 2. Chronic congestive heart failure exacerbation, resolved. 3. Acute episode of respiratory failure, improved on her chronic respiratory failure. 4. Morbid obesity. 5. Atrial fibrillation. 6. Escherichia coli urinary tract infection. HOSPITAL COURSE: This is a 72-year-old female who resides at [facility] who was brought to the Emergency Room secondary to a brief episode of unresponsiveness. EMS had gotten there, she was on the BiPAP, but was not hooked up to oxygen. Her O2 saturations were about 72% at that time. She was brought to the Emergency Room and was seen and worked up at that point. She was afebrile. Blood pressure was acceptable. After being placed on oxygen, her O2 saturations then improved to the 90s. Arterial blood gases showed an acute on chronic respiratory failure. Urinalysis showed a urinary tract infection. She gradually improved over the last 48 hours or so. Her urine culture came back with E. coli and was pansensitive. Therefore, p.o. Cipro was ordered for her to utilize as an outpatient. Today, on 09/26/17, she is discharged in stable condition. DISCHARGE CONDITION: Stable. DIET: As per previous diet prior to arrival at the hospital. ACTIVITY: As tolerated. DISCHARGE MEDICATIONS: 1. Cipro 500 mg b.i.d. for 7 days. FOLLOWUP: Followup appointment with Dr. Dobson in one to two weeks. #[id number] [facility]
[2017-09-26 15:46] VITALS: BP 118/78; TEMP 97.4
[2017-09-26] MEDS ORDERED: ASCORBIC ACID 500 MG TAB PO SCH (21:00)
[2017-09-27] MEDS ORDERED: PANTOPRAZOLE SODIUM TAB 40 MG PO SCH (06:30)
[2017-09-29] MEDS ORDERED: ERGOCALCIFEROL 50000 UNIT PO SCH (09:00)
== END 2017-09-26 11:00 | disposition home or self-care (01) ==
LOC: ER 15:02 → MS 18:16
PROVIDERS: ADMIT Nurse Practitioner Family; ATTEND Nurse Practitioner
DX: G93.1 Anoxic brain damage, not elsewhere classified (principal); J96.21 Acute and chronic respiratory failure with hypoxia; J96.22 Acute and chronic respiratory failure with hypercapnia; I11.0 Hypertensive heart disease with heart failure; I50.9 Heart failure, unspecified; E66.2 Morbid (severe) obesity with alveolar hypoventilation; Z68.43 Body mass index [BMI] 50.0-59.9, adult; I48.2 Chronic atrial fibrillation; N39.0 Urinary tract infection, site not specified; B96.20 Unspecified Escherichia coli [E. coli] as the cause of diseases classified elsewhere; E78.5 Hyperlipidemia, unspecified; K21.9 Gastro-esophageal reflux disease without esophagitis; M19.90 Unspecified osteoarthritis, unspecified site; I71.4 Abdominal aortic aneurysm, without rupture; Z79.01 Long term (current) use of anticoagulants; Z79.899 Other long term (current) drug therapy; Z96.653 Presence of artificial knee joint, bilateral; Z96.642 Presence of left artificial hip joint; Z88.2 Allergy status to sulfonamides; Z88.3 Allergy status to other anti-infective agents
CPT/HCPCS: 36415 ×2; 36600; 71045 ×2; 80048; 80053; 81001; 82550; 82553; 82803; 82805; 83880; 84484; 85025 ×2; 85610; 85730; 87086; 87088; 87186; 94640 ×5; 94660 ×2; 94760; 94762 ×2; 96365; 96366 ×2; 96375; 96376; 99284; G0378; J2185 ×5; J7050 ×5; J7614 ×5

== ENCOUNTER 2017-10-05 15:25 | Emergency (ER) | payer MEDICARE, MEDICAID ==
[2017-10-05] MEDS ORDERED: LEVALBUTEROL NEBS 1.25 MG/3 ML VIAL NEB ONE (15:51)
--- NOTE | 2017-10-05 16:23 | ED.PDOC ---
History of Present Illness - General Chief Complaint: Respiratory Problem Stated Complaint: Low O2 sats per nsg home Time Seen by Provider: 10/05/17 15:51 Source: patient, RN notes reviewed, EMS Exam Limitations: no limitations - History of Present Illness Timing/Duration: days - 2-3 Possible Cause: frequent episodes, irritant gases exposure - Patient states she came in with SOB and low oxygen. She was hospitalized here last week for URI and treated with Cipro. She has been very congested since then. She states she has been very disoriented and not sleeping well since discharge. Yesterday was the first day she felt a little better. Today she was given an shower and off her oxygen. She normally tolerates that well but this time got very short of breath and even CPAP that she uses would not help. She does have breathing treatments at home but did not feel she needed one and only uses them prn. She has had no fever, chills since discharge. She has some cough with occasionally productive sputum that is white. Improving Factors: other - patient is better just with time this morning Worsening Factors: movement Respiratory Risk Factors: other - recent illnes Allergies/Adverse Reactions: Allergies Cefazolin [From Ancef] Allergy (Unknown, Verified 10/05/17 15:39) Rash Mupirocin [From Bactroban] Allergy (Verified 10/05/17 15:39) Hives Mushroom Extract Complex Allergy (Verified 08/28/15 11:16) Sulfa Antibiotics Allergy (Verified 10/05/17 15:39) Other Made patient itch adhesive tape Allergy (Intermediate, Uncoded 03/26/14 12:39) Rash pt got blisters Home Medications: Ambulatory Orders Celecoxib [Celebrex] 200 mg PO DAILY 06/27/12 Gabapentin [Neurontin] 600 mg PO TID 06/27/12 Metoprolol Tartrate [Lopressor] 50 mg PO BID 06/27/12 Multiple Vitamins W/ Minerals [Multi Vitamin/Minerals Fu] 1 tab PO DAILY Amlodipine Besylate [Norvasc] 10 mg PO DAILY 03/26/14 Ascorbic Acid [Vitamin C] 500 mg PO BID 03/26/14 Diltiazem HCl [Cardizem] 120 mg PO DAILY 03/26/14 Ergocalciferol [Vitamin D] 50,000 unit PO TH@0900 03/26/14 Ropinirole Hydrochloride [Requip] 2 mg PO BID 03/26/14 Diphenhydramine HCl 50 mg PO Q6H PRN 08/28/15 Isosorbide Mononitrate [Imdur] 30 mg PO DAILY 05/14/16 Magnesium Hydroxide [Milk Of Magnesia] 30 ml PO DAILY PRN 05/14/16 Omeprazole [Prilosec] 40 mg PO DAILY PRN 05/14/16 Primidone 250 mg PO BID 05/14/16 Rivaroxaban [Xarelto] 20 mg PO BEDTIME 05/14/16 Simethicone 80 mg PO QID PRN 05/14/16 Acetaminophen [Tylenol] 650 mg PO Q6H PRN 11/07/16 Alum & Mag Hydrox-Simethicone [Christy-Lanta 200-200-20 mg/5Ml] 30 ml PO Q8H PRN Ferrous Sulfate 325 mg PO DAILY 11/07/16 Furosemide 40 mg PO BID 11/07/16 Levalbuterol HCl [Xopenex] 1.25 mg IN Q6H PRN 11/07/16 Loperamide HCl 4 mg PO DAILY PRN MDD 8 MG 11/07/16 Potassium Chloride [Potassium Chloride ER] 20 meq PO DAILY 11/07/16 Tramadol HCl 50 - 100 mg PO BID PRN 11/07/16 Allopurinol [Allopurinol] 300 mg PO DAILY 09/24/17 Benzonatate Perles [Tessalon Perles] 100 mg PO TID PRN 09/24/17 Cetirizine HCl [Zyrtec Allergy] 10 mg PO PRN PRN 09/24/17 Cranberry (Vaccinium Macrocarp [Cranberry] 1,000 mg PO DAILY 09/24/17 Dicyclomine HCl [Bentyl] 10 mg PO BID 09/24/17 Lactobacillus [Acidophilus] 1 cap PO DAILY 09/24/17 Loteprednol Etabonate [Lotemax] 1 drop BOTH_EYES BID 09/24/17 Melatonin 5 mg PO BEDTIME PRN 09/24/17 Nystatin Powder 1 applic TOP BID 09/24/17 Polyvinyl Alcohol [Artificial Tears] 1 drop BOTH_EYES TID 09/24/17 HYDROcodone 7.5MG/APAP 325MG [[place] 7.5/325] 1 tab PO BID PRN 09/25/17 Ipratropium/Albuterol [Duoneb] 3 ml INH DAILY PRN 09/25/17 Review of Systems - Review of Systems Constitutional: Denies: chills, fever EENTM: States: nose congestion. Denies: nose pain, throat pain, throat swelling Respiratory: States: cough, short of breath, wheezing Cardiology: States: no symptoms reported. Denies: chest pain, palpitations, syncope Gastrointestinal/Abdominal: States: no symptoms reported. Denies: diarrhea, nausea, vomiting Genitourinary: States: no symptoms reported Musculoskeletal: States: no symptoms reported Skin: States: no symptoms reported Neurological: States: no symptoms reported Past Medical History (General) - Patient Medical History Hx Seizures: No Hx Stroke: No Hx Dementia: No Hx Asthma: No Hx of COPD: Yes Hx Cardiac Disorders: Yes - blood clot in [facility] Hx Congestive Heart Failure: No Hx Pacemaker: No Hx Hypertension: Yes Hx Thyroid Disease: No Hx Diabetes: No Hx Gastroesophageal Reflux: Yes Hx Renal Disease: No Hx Cancer: No Hx of HIV: No Hx Hepatitis C: No Hx MRSA: No MRSA Source:: Wound - Vaccination History Hx Tetanus, Diphtheria Vaccination: No Hx Influenza Vaccination: Yes - 2017 Hx Pneumococcal Vaccination: Yes - Social History Hx Tobacco Use: No Hx Chewing Tobacco Use: No Hx Alcohol Use: No Hx Substance Use: No Hx Substance Use Treatment: No Hx Depression: No Hx Physical Abuse: No Hx Emotional Abuse: No Hx Suspected Abuse: No - Activities of Daily Living Senior Care/Assisted Living (if applicable):: [facility] - Female History Patient : No Family Medical History - Family History Mother Family History: No Known Living Status: Hx Cardiac Disease: Yes Hx Family Cancer: Yes - urinary bladder Physical Exam - Physical Exam General Appearance: Alert, Comfortable, No apparent distress Eyes, Ears, Nose, Throat Exam: PERRL/EOMI, normal ENT inspection, TMs normal, pharynx normal Neck: non-tender, full range of motion, supple Respiratory: chest non-tender, no accessory muscle use, rhonchi, wheezing Cardiovascular/Chest: normal peripheral pulses, regular rate, rhythm, no murmur Gastrointestinal/Abdominal: normal bowel sounds, non tender, soft, no organomegaly Neurologic: quill skinner II-XII nml as tested Skin Exam: normal color Departure - Departure Clinical Impression: COPD (chronic obstructive pulmonary disease) Qualifiers: COPD type: COPD with acute exacerbation Qualified Code(s): J44.1 - Chronic obstructive pulmonary disease with (acute) exacerbation Disposition: Discharge to SNF Condition: Fair Departure Forms: ED Discharge - Pt. Copy, Patient Portal Self Enrollment Diet: diabetic diet - patient given breathing treament here and is doing better. Her oxygen is back to baseline but she did sleep with her window open last night and had an acute exacerbation. Solumedrol given here. Patient should take Xopenex QID x 2 days scheduled and follow up with PCP in 3-4 days Referrals: Glen Dobson MD [Primary Care Provider] - 1-2 Weeks Home Medications: Ambulatory Orders Celecoxib [Celebrex] 200 mg PO DAILY 06/27/12 Gabapentin [Neurontin] 600 mg PO TID 06/27/12 Metoprolol Tartrate [Lopressor] 50 mg PO BID 06/27/12 Multiple Vitamins W/ Minerals [Multi Vitamin/Minerals Fu] 1 tab PO DAILY Amlodipine Besylate [Norvasc] 10 mg PO DAILY 03/26/14 Ascorbic Acid [Vitamin C] 500 mg PO BID 03/26/14 Diltiazem HCl [Cardizem] 120 mg PO DAILY 03/26/14 Ergocalciferol [Vitamin D] 50,000 unit PO TH@0900 03/26/14 Ropinirole Hydrochloride [Requip] 2 mg PO BID 03/26/14 Diphenhydramine HCl 50 mg PO Q6H PRN 08/28/15 Isosorbide Mononitrate [Imdur] 30 mg PO DAILY 05/14/16 Magnesium Hydroxide [Milk Of Magnesia] 30 ml PO DAILY PRN 05/14/16 Omeprazole [Prilosec] 40 mg PO DAILY PRN 05/14/16 Primidone 250 mg PO BID 05/14/16 Rivaroxaban [Xarelto] 20 mg PO BEDTIME 05/14/16 Simethicone 80 mg PO QID PRN 05/14/16 Acetaminophen [Tylenol] 650 mg PO Q6H PRN 11/07/16 Alum & Mag Hydrox-Simethicone [Christy-Lanta 200-200-20 mg/5Ml] 30 ml PO Q8H PRN Ferrous Sulfate 325 mg PO DAILY 11/07/16 Furosemide 40 mg PO BID 11/07/16 Levalbuterol HCl [Xopenex] 1.25 mg IN Q6H PRN 11/07/16 Loperamide HCl 4 mg PO DAILY PRN MDD 8 MG 11/07/16 Potassium Chloride [Potassium Chloride ER] 20 meq PO DAILY 11/07/16 Tramadol HCl 50 - 100 mg PO BID PRN 11/07/16 Allopurinol [Allopurinol] 300 mg PO DAILY 09/24/17 Benzonatate Perles [Tessalon Perles] 100 mg PO TID PRN 09/24/17 Cetirizine HCl [Zyrtec Allergy] 10 mg PO PRN PRN 09/24/17 Cranberry (Vaccinium Macrocarp [Cranberry] 1,000 mg PO DAILY 09/24/17 Dicyclomine HCl [Bentyl] 10 mg PO BID 09/24/17 Lactobacillus [Acidophilus] 1 cap PO DAILY 09/24/17 Loteprednol Etabonate [Lotemax] 1 drop BOTH_EYES BID 09/24/17 Melatonin 5 mg PO BEDTIME PRN 09/24/17 Nystatin Powder 1 applic TOP BID 09/24/17 Polyvinyl Alcohol [Artificial Tears] 1 drop BOTH_EYES TID 09/24/17 HYDROcodone 7.5MG/APAP 325MG [[place] 7.5/325] 1 tab PO BID PRN 09/25/17 Ipratropium/Albuterol [Duoneb] 3 ml INH DAILY PRN 09/25/17 Comments: Patient to return to the ER for increase in shortness of breath, decrease in oxygen saturation. So current treatments with Xopenex QID x 2 days scheduled and recheck with PCP in 3-4 days.
--- NOTE | 2017-10-05 16:28 | RAD ---
EXAM DESCRIPTION: Chest,1 View CLINICAL HISTORY:72 years Female, shortness of breath Comparison: September 25, 2017 FINDINGS: Enlarged cardiac silhouette with mild vascular congestion, similar to prior. No focal consolidation. No pleural effusion. No pneumothorax. No acute osseous abnormality. Soft tissues are unremarkable. IMPRESSION: Enlarged cardiac silhouette with mild vascular congestion, similar to prior. No focal consolidation. Electronically signed by: Pravin Alanis MD 10/05/2017 4:26 PM CDT
[2017-10-05] MEDS ORDERED: methylPREDNISolone SODIUM SUC 125 MG/2 ML VIAL IM ONE (17:18)
[2017-10-05 18:17] VITALS: BP 114/73; TEMP 97.4; O2SAT 90
== END 2017-10-05 18:12 ==
LOC: ER 15:25
DX: J44.1 Chronic obstructive pulmonary disease with (acute) exacerbation (principal); I10 Essential (primary) hypertension; K21.9 Gastro-esophageal reflux disease without esophagitis; Z79.01 Long term (current) use of anticoagulants; Z79.899 Other long term (current) drug therapy; Z86.718 Personal history of other venous thrombosis and embolism

== ENCOUNTER 2017-10-18 11:06 | Emergency (ER) | payer MEDICARE, MEDICAID ==
[2017-10-18] MEDS ORDERED: IPRATROPIUM/ALBUTEROL 3 ML VIAL INH ONE (11:43)
[2017-10-18] MEDS ORDERED: SODIUM CHLORIDE 0.9% (FLUSH) 10 ML SYG IV PRN (11:43)
--- NOTE | 2017-10-18 11:58 | ED.PDOC ---
History of Present Illness - General Chief Complaint: Respiratory Problem Stated Complaint: Hypoxia Time Seen by Provider: 10/18/17 11:15 Source: patient, family Exam Limitations: physical impairment - History of Present Illness Initial Comments: FAMILY MEMBERS REPORT THAT PT WAS FOUND UNRESPONSIVE THIS MORNING WHEN THEY ARRIVED AT THE NURSING FACILITY WHERE PT RESIDES. PT APPARENTLY HAD NOT WORN BIPAP THE PREVIOUS NIGHT. WHEN BIPAP WAS PLACED ON PATIENT SHE BECAME MORE RESPONSIVE BUT WAS STILL SOMEWHAT CONFUSED ACCORDING TO FAMILY. PT HAS HAD MORE FREQUENT RESPIRATORY PROBLEMS OVER THE PAST FEW WEEKS AND HAS HAD SEVERAL VISITS TO THE ED. PT REPORTS PRODUCTIVE COUGH TODAY AND DIARRHEA A FEW DAYS PRIOR. PT DENIES CHEST PAIN, FEVER, OR SOB. Timing/Duration: this morning Severity: moderate Possible Cause: occasional episodes, frequent episodes Improving Factors: other - BIPAP Worsening Factors: nothing Associated Symptoms: cough Allergies/Adverse Reactions: Allergies Cefazolin [From Ancef] Allergy (Unknown, Verified 10/05/17 15:39) Rash Mupirocin [From Bactroban] Allergy (Verified 10/05/17 15:39) Hives Mushroom Extract Complex Allergy (Verified 08/28/15 11:16) Sulfa Antibiotics Allergy (Verified 10/05/17 15:39) Other Made patient itch adhesive tape Allergy (Intermediate, Uncoded 03/26/14 12:39) Rash pt got blisters Home Medications: Ambulatory Orders Celecoxib [Celebrex] 200 mg PO DAILY 06/27/12 Gabapentin [Neurontin] 600 mg PO TID 06/27/12 Metoprolol Tartrate [Lopressor] 50 mg PO BID 06/27/12 Multiple Vitamins W/ Minerals [Multi Vitamin/Minerals Fu] 1 tab PO DAILY Amlodipine Besylate [Norvasc] 10 mg PO DAILY 03/26/14 Ascorbic Acid [Vitamin C] 500 mg PO BID 03/26/14 Diltiazem HCl [Cardizem] 120 mg PO DAILY 03/26/14 Ergocalciferol [Vitamin D] 50,000 unit PO TH@0900 03/26/14 Ropinirole Hydrochloride [Requip] 2 mg PO BID 03/26/14 Diphenhydramine HCl 50 mg PO Q6H PRN 08/28/15 Isosorbide Mononitrate [Imdur] 30 mg PO DAILY 05/14/16 Magnesium Hydroxide [Milk Of Magnesia] 30 ml PO DAILY PRN 05/14/16 Omeprazole [Prilosec] 40 mg PO DAILY PRN 05/14/16 Primidone 250 mg PO BID 05/14/16 Rivaroxaban [Xarelto] 20 mg PO BEDTIME 05/14/16 Simethicone 80 mg PO QID PRN 05/14/16 Acetaminophen [Tylenol] 650 mg PO Q6H PRN 11/07/16 Alum & Mag Hydrox-Simethicone [Christy-L[place] 200-200-20 mg/5Ml] 30 ml PO Q8H PRN Ferrous Sulfate 325 mg PO DAILY 11/07/16 Furosemide 40 mg PO BID 11/07/16 Levalbuterol HCl [Xopenex] 1.25 mg IN Q6H PRN 11/07/16 Loperamide HCl 4 mg PO DAILY PRN MDD 8 MG 11/07/16 Potassium Chloride [Potassium Chloride ER] 20 meq PO DAILY 11/07/16 Tramadol HCl 50 - 100 mg PO BID PRN 11/07/16 Allopurinol [Allopurinol] 300 mg PO DAILY 09/24/17 Benzonatate Perles [Tessalon Perles] 100 mg PO TID PRN 09/24/17 Cetirizine HCl [Zyrtec Allergy] 10 mg PO PRN PRN 09/24/17 Cranberry (Vaccinium Macrocarp [Cranberry] 1,000 mg PO DAILY 09/24/17 Dicyclomine HCl [Bentyl] 10 mg PO BID 09/24/17 Lactobacillus [Acidophilus] 1 cap PO DAILY 09/24/17 Loteprednol Etabonate [Lotemax] 1 drop BOTH_EYES BID 09/24/17 Melatonin 5 mg PO BEDTIME PRN 09/24/17 Nystatin Powder 1 applic TOP BID 09/24/17 Polyvinyl Alcohol [Artificial Tears] 1 drop BOTH_EYES TID 09/24/17 HYDROcodone 7.5MG/APAP 325MG [[place] 7.5/325] 1 tab PO BID PRN 09/25/17 Ipratropium/Albuterol [Duoneb] 3 ml INH DAILY PRN 09/25/17 Review of Systems - Review of Systems Constitutional: Denies: chills, fever EENTM: Denies: ear pain, nose congestion Respiratory: States: cough. Denies: short of breath Cardiology: Denies: chest pain, palpitations Gastrointestinal/Abdominal: States: diarrhea. Denies: nausea, vomiting Genitourinary: Denies: dysuria, frequency Musculoskeletal: Denies: joint pain, joint swelling Skin: States: change in color - CYANOTIC. Denies: lesions Neurological: Denies: headache, numbness Endocrine: States: no symptoms reported Hematologic/Lymphatic: States: no symptoms reported Past Medical History (General) - Patient Medical History Hx Seizures: No Hx Stroke: No Hx Dementia: No Hx Asthma: No Hx of COPD: Yes Hx Cardiac Disorders: Yes - blood clot in [facility] Hx Congestive Heart Failure: No Hx Pacemaker: No Hx Hypertension: Yes Hx Thyroid Disease: No Hx Diabetes: No Hx Gastroesophageal Reflux: Yes Hx Renal Disease: No Hx Cancer: No Hx of HIV: No Hx Hepatitis C: No Hx MRSA: No MRSA Source:: Wound - Vaccination History Hx Tetanus, Diphtheria Vaccination: No Hx Influenza Vaccination: Yes - 2017 Hx Pneumococcal Vaccination: Yes - Social History Hx Tobacco Use: No Hx Chewing Tobacco Use: No Hx Alcohol Use: No Hx Substance Use: No Hx Substance Use Treatment: No Hx Depression: No Hx Physical Abuse: No Hx Emotional Abuse: No Hx Suspected Abuse: No - Activities of Daily Living Senior Living/Assisted Living (if applicable):: [facility] - Female History Patient : No Family Medical History - Family History Mother Family History: No Known Living Status: Hx Cardiac Disease: Yes Hx Family Cancer: Yes - urinary bladder Physical Exam - Physical Exam General Appearance: Alert, Comfortable, No apparent distress, Obese Eye Exam: bilateral normal ENT Exam: normal ENT inspection Respiratory: lungs clear, normal breath sounds, no respiratory distress Cardiovascular/Chest: regular rate, rhythm, no murmur Gastrointestinal/Abdominal: non tender, soft Extremity: no calf tenderness, pedal edema, swelling Neurologic: alert, normal mood/affect, oriented x 3 Skin Exam: warm/dry, pallor Progress - Progress Progress: 10/18/17 13:50 PT RESTING COMFORTABLY ON RE-EVAL, LABS AND DIAGNOSTICS DISCUSSED WITH FAMILY AND PT. PT AND FAMILY REQUESTING TO BE TRANSFERED TO [facility] IS ADMISSION IS NEEDED. BIPAP ORDERED. - Results/Orders Results/Orders: 10/18/17 11:43 IV Care:Saline Lock per Protoc QSHIFT Telemetry .ONCE Sodium Chloride 0.9% (Flush) [Saline Flush Syringe] 10 ml IV PRN PRN Pulse Oximetry Assessment DAILY 10/18/17 11:45 EKG STAT 10/18/17 12:59 EKG Assessment DAILY 10/18/17 13:06 BiPAP/CPAP Treatment DAILY 10/19/17 09:00 BiPAP Daily Pulse Ox Daily Laboratory Results - last 24 hr 10/18/17 10/18/17 10/18/17 11:56 11:56 11:56 WBC 7.4 RBC 3.83 L Hgb 12.7 Hct 38.5 MCV 100.7 H MCH 33.1 H MCHC 32.9 L RDW 14.2 Plt Count 171 MPV 7.8 Absolute Neuts (auto) 5.90 Absolute Lymphs (auto) 0.70 L Absolute Monos (auto) 0.50 Absolute Eos (auto) 0.20 Absolute Basos (auto) 0.00 Neutrophils % 80.5 H Lymphocytes % 9.0 L Monocytes % 7.0 Eosinophils % 3.3 Basophils % 0.2 D-Dimer, Quantitative 258 H* pCO2 pO2 HCO3 ABG pH ABG O2 Saturation ABG Base Excess ABG Deoxyhemoglobin Oxyhemoglobin % Carboxyhemoglobin % Methemoglobin % Sat Calc Total Hemoglobin Sodium 140 Potassium 4.2 Chloride 89 L Carbon Dioxide 45 H Anion Gap 10.2 L BUN 15 Creatinine 0.48 L BUN/Creatinine Ratio 31.3 H Random Glucose 114 H Serum Osmolality 281.1 Calcium 9.2 Total Bilirubin 0.5 AST 13 ALT 13 Alkaline Phosphatase 81 B-Natriuretic Peptide 233.0 H* Serum Total Protein 7.0 Albumin 3.1 L Globulin 3.9 H Albumin/Globulin Ratio 0.8 L 10/18/17 12:35 WBC RBC Hgb Hct MCV MCH MCHC RDW Plt Count MPV Absolute Neuts (auto) Absolute Lymphs (auto) Absolute Monos (auto) Absolute Eos (auto) Absolute Basos (auto) Neutrophils % Lymphocytes % Monocytes % Eosinophils % Basophils % D-Dimer, Quantitative pCO2 81 H* pO2 58 L HCO3 47.0 ABG pH 7.380 ABG O2 Saturation 92.3 L ABG Base Excess 18.0 ABG Deoxyhemoglobin 7.5 H Oxyhemoglobin % 89.6 L Carboxyhemoglobin % 1.6 H Methemoglobin % Sat 1.3 Calc Total Hemoglobin 12.5 Sodium Potassium Chloride Carbon Dioxide Anion Gap BUN Creatinine BUN/Creatinine Ratio Random Glucose Serum Osmolality Calcium Total Bilirubin AST ALT Alkaline Phosphatase B-Natriuretic Peptide Serum Total Protein Albumin Globulin Albumin/Globulin Ratio - EKG/XRAY/CT EKG: Atrial, Fibrillation - 80BPM, NL AXIS, no ST T wave changes, Unchanged from - 11/20/16 XRAY: chest - VASCULAR CONGESTION PER RAD Departure - Departure Clinical Impression: Respiratory failure with hypoxia and hypercapnia, A-fib, CHF (congestive heart failure), COPD (chronic obstructive pulmonary disease) Time of Disposition: 13:53 Disposition: Transfer to Hospital Condition: Fair Departure Forms: ED Discharge - Pt. Copy, Patient Portal Self Enrollment Referrals: Glen Dobson MD [Primary Care Provider] - 1-2 Weeks Home Medications: Ambulatory Orders Celecoxib [Celebrex] 200 mg PO DAILY 06/27/12 Gabapentin [Neurontin] 600 mg PO TID 06/27/12 Metoprolol Tartrate [Lopressor] 50 mg PO BID 06/27/12 Multiple Vitamins W/ Minerals [Multi Vitamin/Minerals Fu] 1 tab PO DAILY Amlodipine Besylate [Norvasc] 10 mg PO DAILY 03/26/14 Ascorbic Acid [Vitamin C] 500 mg PO BID 03/26/14 Diltiazem HCl [Cardizem] 120 mg PO DAILY 03/26/14 Ergocalciferol [Vitamin D] 50,000 unit PO TH@0900 03/26/14 Ropinirole Hydrochloride [Requip] 2 mg PO BID 03/26/14 Diphenhydramine HCl 50 mg PO Q6H PRN 08/28/15 Isosorbide Mononitrate [Imdur] 30 mg PO DAILY 05/14/16 Magnesium Hydroxide [Milk Of Magnesia] 30 ml PO DAILY PRN 05/14/16 Omeprazole [Prilosec] 40 mg PO DAILY PRN 05/14/16 Primidone 250 mg PO BID 05/14/16 Rivaroxaban [Xarelto] 20 mg PO BEDTIME 05/14/16 Simethicone 80 mg PO QID PRN 05/14/16 Acetaminophen [Tylenol] 650 mg PO Q6H PRN 11/07/16 Alum & Mag Hydrox-Simethicone [Christy-[place] 200-200-20 mg/5Ml] 30 ml PO Q8H PRN Ferrous Sulfate 325 mg PO DAILY 11/07/16 Furosemide 40 mg PO BID 11/07/16 Levalbuterol HCl [Xopenex] 1.25 mg IN Q6H PRN 11/07/16 Loperamide HCl 4 mg PO DAILY PRN MDD 8 MG 11/07/16 Potassium Chloride [Potassium Chloride ER] 20 meq PO DAILY 11/07/16 Tramadol HCl 50 - 100 mg PO BID PRN 11/07/16 Allopurinol [Allopurinol] 300 mg PO DAILY 09/24/17 Benzonatate Perles [Tessalon Perles] 100 mg PO TID PRN 09/24/17 Cetirizine HCl [Zyrtec Allergy] 10 mg PO PRN PRN 09/24/17 Cranberry (Vaccinium Macrocarp [Cranberry] 1,000 mg PO DAILY 09/24/17 Dicyclomine HCl [Bentyl] 10 mg PO BID 09/24/17 Lactobacillus [Acidophilus] 1 cap PO DAILY 09/24/17 Loteprednol Etabonate [Lotemax] 1 drop BOTH_EYES BID 09/24/17 Melatonin 5 mg PO BEDTIME PRN 09/24/17 Nystatin Powder 1 applic TOP BID 09/24/17 Polyvinyl Alcohol [Artificial Tears] 1 drop BOTH_EYES TID 09/24/17 HYDROcodone 7.5MG/APAP 325MG [[place] 7.5/325] 1 tab PO BID PRN 09/25/17 Ipratropium/Albuterol [Duoneb] 3 ml INH DAILY PRN 09/25/17 Transfer to Outside Facility - Transfer Information Accepting Provider:: DR. MÁRQUEZ Accepting Facility: [facility] Reason for Transfer: PATIENT REQUEST
--- NOTE | 2017-10-18 12:48 | RAD ---
Study: Single Frontal View of the Chest. Indication:HYPOXIA Comparison: October 05, 2017. Impression: Cardiomegaly. Atherosclerosis aorta. Minimal vascular congestion, overall improved compared to prior. No pleural effusion or pneumothorax. Degenerative changes of the left shoulder noted. Electronically signed by: Arnaldo Man MD 10/18/2017 12:47 PM CDT
[2017-10-18] MEDS ORDERED: FUROSEMIDE INJ 40 MG/4 ML VIAL IV ONE (13:36)
[2017-10-18 14:22] VITALS: O2SAT 94
[2017-10-18 15:30] VITALS: BP 127/75; TEMP 97.7
== END 2017-10-18 15:05 | disposition short-term general hospital (02) ==
LOC: ER 11:06
DX: J96.92 Respiratory failure, unspecified with hypercapnia (principal); J96.91 Respiratory failure, unspecified with hypoxia; J44.9 Chronic obstructive pulmonary disease, unspecified; I48.91 Unspecified atrial fibrillation; I11.0 Hypertensive heart disease with heart failure; I50.9 Heart failure, unspecified; Z86.718 Personal history of other venous thrombosis and embolism; Z79.899 Other long term (current) drug therapy; Z79.01 Long term (current) use of anticoagulants
CPT/HCPCS: 36415; 36600; 71045; 80053; 82803; 82805; 83880; 85025; 85379; 93005; 94640; 94660; 94760; J1940; J7620

== ENCOUNTER → 2017-11-28 | Outpatient (CLI) | payer MEDICARE, MEDICAID | LOC: GOCC 19:38 | PROVIDERS: ATTEND Family Medicine | DX: N39.0 Urinary tract infection, site not specified (principal) ==

== ENCOUNTER 2017-11-30 10:31 | Emergency (ER) | payer MEDICARE, MEDICAID ==
--- NOTE | 2017-11-30 12:02 | RAD ---
EXAM DESCRIPTION: Ankle,Right 2 Views CLINICAL HISTORY: fall from [place]sey lift COMPARISON: Radiographs of the lumbar spine and pelvis on the same visit. TECHNIQUE: AP, lateral, right ankle. FINDINGS: Overall bone density is decreased. This limits sensitivity of the study. Minimal widening of the lateral superior ankle mortise and narrowing of the medial gutter. Also narrowing posterior. Marginal spurs but no definite fracture. Old fracture with deformity and callus formation distal right fibular shaft. Arthrosis in the subtalar joints, talonavicular joint, calcaneocuboid joint, and the navicular joint with the medial cuneiform. Soft tissue around the ankle more likely due to body habitus. Swelling. Plantar calcaneal spur. IMPRESSION: Degenerative changes in the ankle mortise but no dislocation or fracture. Sensitivity for fracture decreased due to diminished bone density. Old fracture appears healed in the distal fibula with deformity. Arthrosis in the midfoot and hindfoot. Electronically signed by: Galen Estrada MD 11/30/2017 12:01 PM CDT
--- NOTE | 2017-11-30 12:06 | RAD ---
EXAM DESCRIPTION: Lumbar Spine 3 Views CLINICAL HISTORY: fall from [place]sey lift COMPARISON: Radiographs of the pelvis and right ankle. TECHNIQUE: AP, lateral radiographs of the entire lumbar spine. . Technically difficult study due to patient large body habitus and pain limiting positioning. FINDINGS: Lumbar type vertebra: 5. Transitional vertebrae: None. Disk spaces: Narrowing at multiple levels with endplate ridging, lateral and anterior. Facet joints: Bilateral arthrosis L4-5 and L5-S1. Compression deformities: Only L1-L3 visualized on the lateral view. No gross compression deformities on the AP view. Bone Density: Moderately decreased. Alignment: No significant scoliosis. Not able to evaluate spondylolisthesis due to body habitus. Abdomen: Diffuse fecal material. No gas-filled distended bowel. IMPRESSION: Limited study due to patient body habitus and pain limiting positioning. Also decreased bone density. No gross compression fractures on the AP view. Spondylosis at multiple levels. Electronically signed by: Galen Estrada MD 11/30/2017 12:05 PM CDT
--- NOTE | 2017-11-30 12:11 | RAD ---
EXAM DESCRIPTION: Pelvis CLINICAL HISTORY: fall from [place]sey lift COMPARISON: Radiographs of the right ankle and lumbar spine. TECHNIQUE: AP view only. FINDINGS: No fracture dislocation. Moderate loss of bone density. Left total hip arthroplasty. Femoral stem not seen distally with questionable radiolucency around the stem. Acetabular component in relationship with the femoral component is unremarkable. Unusual orientation of the right femoral head and neck may be due to positioning. No definite pelvic fractures or pubic diastases. Enthesophytes on the pelvis. Narrowing of the L4-5 and L5-S1 disc spaces and vertebral body heights grossly normal at L4 and L5. No abnormal radiodense objects in the soft tissues or joint spaces. IMPRESSION: Unusual orientation of the right femoral head and neck may be due to positioning. Correlate for pain. Left total hip arthroplasty with no dislocation. Question of radiolucency around the femoral component which could indicate loosening. Electronically signed by: Galen Estrada MD 11/30/2017 12:09 PM CDT
--- NOTE | 2017-11-30 12:20 | ED.PDOC ---
History of Present Illness - General Chief Complaint: Back Pain or Injury Stated Complaint: Low back and R leg discomfort Time Seen by Provider: 11/30/17 10:37 Source: patient Exam Limitations: no limitations - History of Present Illness Initial Comments: the patient is a 72-year-old female presenting to the emergency room from a correction after the patient was dropped from a Chelsey lift due to a strep breaking. The patient fell approximately 2-1/2-3 foot to the ground and her right lateral ankle landed on top of the leg of the Chelsey lift. She has pain in that area and some low back pain where she hit. She does not have any pain in either hip. Passive range of motion of the hips appear to be stable. By the time she arrives at the emergency room her back pain is back down towards its baseline. 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 There is no deformity of the ankle. She does have some chronic edema. She does have an anterior bruise that is old. Passive and active range of motion of the ankle are preserved. No pain with pressure on the pelvis. No other reports of pain anywhere else. Timing/Duration: 1 hour Severity: moderate Improving Factors: nothing Worsening Factors: nothing Associated Symptoms: denies symptoms Allergies/Adverse Reactions: Allergies Cefazolin [From Ancef] Allergy (Unknown, Verified 10/05/17 15:39) Rash Mupirocin [From Bactroban] Allergy (Verified 10/05/17 15:39) Hives Mushroom Extract Complex Allergy (Verified 08/28/15 11:16) Sulfa Antibiotics Allergy (Verified 10/05/17 15:39) Other Made patient itch adhesive tape Allergy (Intermediate, Uncoded 03/26/14 12:39) Rash pt got blisters Home Medications: Ambulatory Orders Celecoxib [Celebrex] 200 mg PO DAILY 06/27/12 Gabapentin [Neurontin] 600 mg PO TID 06/27/12 Metoprolol Tartrate [Lopressor] 50 mg PO BID 06/27/12 Multiple Vitamins W/ Minerals [Multi Vitamin/Minerals Fu] 1 tab PO DAILY Amlodipine Besylate [Norvasc] 10 mg PO DAILY 03/26/14 Ascorbic Acid [Vitamin C] 500 mg PO BID 03/26/14 Diltiazem HCl [Cardizem] 120 mg PO DAILY 03/26/14 Ergocalciferol [Vitamin D] 50,000 unit PO TH@0900 03/26/14 Ropinirole Hydrochloride [Requip] 2 mg PO BID 03/26/14 Diphenhydramine HCl 50 mg PO Q6H PRN 08/28/15 Isosorbide Mononitrate [Imdur] 30 mg PO DAILY 05/14/16 Magnesium Hydroxide [Milk Of Magnesia] 30 ml PO DAILY PRN 05/14/16 Omeprazole [Prilosec] 40 mg PO DAILY PRN 05/14/16 Primidone 250 mg PO BID 05/14/16 Rivaroxaban [Xarelto] 20 mg PO BEDTIME 05/14/16 Simethicone 80 mg PO QID PRN 05/14/16 Acetaminophen [Tylenol] 650 mg PO Q6H PRN 11/07/16 Alum & Mag Hydrox-Simethicone [Christy-Lanta 200-200-20 mg/5Ml] 30 ml PO Q8H PRN Ferrous Sulfate 325 mg PO DAILY 11/07/16 Furosemide 40 mg PO BID 11/07/16 Levalbuterol HCl [Xopenex] 1.25 mg IN Q6H PRN 11/07/16 Loperamide HCl 4 mg PO DAILY PRN MDD 8 MG 11/07/16 Potassium Chloride [Potassium Chloride ER] 20 meq PO DAILY 11/07/16 Tramadol HCl 50 - 100 mg PO BID PRN 11/07/16 Allopurinol [Allopurinol] 300 mg PO DAILY 09/24/17 Benzonatate Perles [Tessalon Perles] 100 mg PO TID PRN 09/24/17 Cetirizine HCl [Zyrtec Allergy] 10 mg PO PRN PRN 09/24/17 Cranberry (Vaccinium Macrocarp [Cranberry] 1,000 mg PO DAILY 09/24/17 Dicyclomine HCl [Bentyl] 10 mg PO BID 09/24/17 Lactobacillus [Acidophilus] 1 cap PO DAILY 09/24/17 Loteprednol Etabonate [Lotemax] 1 drop BOTH_EYES BID 09/24/17 Melatonin 5 mg PO BEDTIME PRN 09/24/17 Nystatin Powder 1 applic TOP BID 09/24/17 Polyvinyl Alcohol [Artificial Tears] 1 drop BOTH_EYES TID 09/24/17 HYDROcodone 7.5MG/APAP 325MG [[place] 7.5/325] 1 tab PO BID PRN 09/25/17 Ipratropium/Albuterol [Duoneb] 3 ml INH DAILY PRN 09/25/17 Review of Systems - Review of Systems Constitutional: States: no symptoms reported EENTM: States: no symptoms reported Respiratory: States: no symptoms reported Cardiology: States: no symptoms reported Gastrointestinal/Abdominal: States: no symptoms reported Genitourinary: States: no symptoms reported Musculoskeletal: States: see HPI Skin: States: no symptoms reported Neurological: States: no symptoms reported Endocrine: States: no symptoms reported All other Systems: No Change from Baseline Past Medical History (General) - Patient Medical History Hx Seizures: No Hx Stroke: No Hx Dementia: No Hx Asthma: No Hx of COPD: Yes Hx Cardiac Disorders: Yes - blood clot in [facility] Hx Congestive Heart Failure: No Hx Pacemaker: No Hx Hypertension: Yes Hx Thyroid Disease: No Hx Diabetes: No Hx Gastroesophageal Reflux: Yes Hx Renal Disease: No Hx Cancer: No Hx of HIV: No Hx Hepatitis C: No Hx MRSA: No MRSA Source:: Wound - Vaccination History Hx Tetanus, Diphtheria Vaccination: No Hx Influenza Vaccination: Yes - 2017 Hx Pneumococcal Vaccination: Yes - Social History Hx Tobacco Use: No Hx Chewing Tobacco Use: No Hx Alcohol Use: No Hx Substance Use: No Hx Substance Use Treatment: No Hx Depression: No Hx Physical Abuse: No Hx Emotional Abuse: No Hx Suspected Abuse: No - Female History Patient : No Family Medical History - Family History Mother Family History: No Known Living Status: Hx Cardiac Disease: Yes Hx Family Cancer: Yes - urinary bladder Physical Exam - Physical Exam General Appearance: Alert, Comfortable, No apparent distress Eye Exam: bilateral normal Ears, Nose, Throat: normal ENT inspection, normal pharynx Neck: full range of motion, supple Respiratory: no respiratory distress, no accessory muscle use Cardiovascular/Chest: normal peripheral pulses, other - egular rate Peripheral Pulses: radial,right: 2+, radial,left: 2+, dorsalis pedis,right: 2+, dorsalis pedis,left: 2+ Gastrointestinal/Abdominal: non tender - morbidly obese, soft Rectal Exam: deferred Back Exam: other - discomfort palpation both over and adjacent to L1-L3 bilaterally. She reports that this is currently no worse than normal for her however Extremity: normal range of motion - passive, no calf tenderness, normal capillary refill, other - mild swelling to the right lateral ankle where she hit. Neurologic: feeder/folder II-XII nml as tested, alert, normal mood/affect, oriented x 3 Skin Exam: normal color - ild bruising as stated above Progress - Progress Progress: 11/30/17 12:21 the patient is a 72-year-old female presenting to the emergency room secondary to a fall after a break in the [place] lift caused her to drop to the floor underlying. X-ray of the right ankle shows no evidence of fracture however there is arthritis and she does have osteoporosis. X-ray of the pelvis shows a right femur at an odd angle however she is not having any pain in the right hip so this is likely only positional. There is some lucency around the femoral part of the left hip repair. Again she is not having any pain with active or passive range of motion of this, and she is apparently largely nonweightbearing. The patient has noted chronic spondylosis as well as osteoporosis of her lumbar spine. No evidence of any acute compression fracture. X-rays are somewhat limited by her body habitus. in total x-ray shows no evidence of any obvious new bony pathology. She does have numerous chronic findings. The patient should expect to be sore for the next couple of weeks. If symptoms are worsening instead of improving at any certain site then additional imaging may be warranted. The patient will be transferred back to her long-term care facility. Departure - Departure Clinical Impression: Fall at correction Qualifiers: Encounter type: initial encounter Qualified Code(s): W19.XXXA - Unspecified fall, initial encounter; Y92.129 - Unspecified place in correction as the place of occurrence of the external cause Contusion of leg Qualifiers: Encounter type: initial encounter Laterality: right Qualified Code(s): S80.11XA - Contusion of right lower leg, initial encounter Disposition: Discharge to SNF Condition: Fair Departure Forms: ED Discharge - Pt. Copy, Patient Portal Self Enrollment Diet: diabetic diet Activity: increase activity as tolerated Referrals: Glen Dobson MD [Primary Care Provider] - 1-2 Weeks Home Medications: Ambulatory Orders Celecoxib [Celebrex] 200 mg PO DAILY 06/27/12 Gabapentin [Neurontin] 600 mg PO TID 06/27/12 Metoprolol Tartrate [Lopressor] 50 mg PO BID 06/27/12 Multiple Vitamins W/ Minerals [Multi Vitamin/Minerals Fu] 1 tab PO DAILY Amlodipine Besylate [Norvasc] 10 mg PO DAILY 03/26/14 Ascorbic Acid [Vitamin C] 500 mg PO BID 03/26/14 Diltiazem HCl [Cardizem] 120 mg PO DAILY 03/26/14 Ergocalciferol [Vitamin D] 50,000 unit PO TH@0900 03/26/14 Ropinirole Hydrochloride [Requip] 2 mg PO BID 03/26/14 Diphenhydramine HCl 50 mg PO Q6H PRN 08/28/15 Isosorbide Mononitrate [Imdur] 30 mg PO DAILY 05/14/16 Magnesium Hydroxide [Milk Of Magnesia] 30 ml PO DAILY PRN 05/14/16 Omeprazole [Prilosec] 40 mg PO DAILY PRN 05/14/16 Primidone 250 mg PO BID 05/14/16 Rivaroxaban [Xarelto] 20 mg PO BEDTIME 05/14/16 Simethicone 80 mg PO QID PRN 05/14/16 Acetaminophen [Tylenol] 650 mg PO Q6H PRN 11/07/16 Alum & Mag Hydrox-Simethicone [Christy-[place] 200-200-20 mg/5Ml] 30 ml PO Q8H PRN Ferrous Sulfate 325 mg PO DAILY 11/07/16 Furosemide 40 mg PO BID 11/07/16 Levalbuterol HCl [Xopenex] 1.25 mg IN Q6H PRN 11/07/16 Loperamide HCl 4 mg PO DAILY PRN MDD 8 MG 11/07/16 Potassium Chloride [Potassium Chloride ER] 20 meq PO DAILY 11/07/16 Tramadol HCl 50 - 100 mg PO BID PRN 11/07/16 Allopurinol [Allopurinol] 300 mg PO DAILY 09/24/17 Benzonatate Perles [Tessalon Perles] 100 mg PO TID PRN 09/24/17 Cetirizine HCl [Zyrtec Allergy] 10 mg PO PRN PRN 09/24/17 Cranberry (Vaccinium Macrocarp [Cranberry] 1,000 mg PO DAILY 09/24/17 Dicyclomine HCl [Bentyl] 10 mg PO BID 09/24/17 Lactobacillus [Acidophilus] 1 cap PO DAILY 09/24/17 Loteprednol Etabonate [Lotemax] 1 drop BOTH_EYES BID 09/24/17 Melatonin 5 mg PO BEDTIME PRN 09/24/17 Nystatin Powder 1 applic TOP BID 09/24/17 Polyvinyl Alcohol [Artificial Tears] 1 drop BOTH_EYES TID 09/24/17 HYDROcodone 7.5MG/APAP 325MG [[place] 7.5/325] 1 tab PO BID PRN 09/25/17 Ipratropium/Albuterol [Duoneb] 3 ml INH DAILY PRN 09/25/17 Additional Instructions: the patient is a 72-year-old female presenting to the emergency room secondary to a fall after a break in the [place] lift caused her to drop to the floor underlying. X-ray of the right ankle shows no evidence of fracture however there is arthritis and she does have osteoporosis. X-ray of the pelvis shows a right femur at an odd angle however she is not having any pain in the right hip so this is likely only positional. There is some lucency around the femoral part of the left hip repair. Again she is not having any pain with active or passive range of motion of this, and she is apparently largely nonweightbearing. The patient has noted chronic spondylosis as well as osteoporosis of her lumbar spine. No evidence of any acute compression fracture. X-rays are somewhat limited by her body habitus. in total x-ray shows no evidence of any obvious new bony pathology. She does have numerous chronic findings. The patient should expect to be sore for the next couple of weeks. If symptoms are worsening instead of improving at any certain site then additional imaging may be warranted. The patient will be transferred back to her long-term care facility.
[2017-11-30 12:58] VITALS: BP 107/85; TEMP 96.9; O2SAT 98
== END 2017-11-30 12:58 ==
LOC: ER 10:31
DX: S80.11XA Contusion of right lower leg, initial encounter (principal); M54.5 Low back pain; M79.604 Pain in right leg; M47.896 Other spondylosis, lumbar region; M81.0 Age-related osteoporosis without current pathological fracture; I10 Essential (primary) hypertension; J44.9 Chronic obstructive pulmonary disease, unspecified; Z79.899 Other long term (current) drug therapy; Z86.718 Personal history of other venous thrombosis and embolism; Z79.01 Long term (current) use of anticoagulants; W17.89XA Other fall from one level to another, initial encounter; Y92.129 Unspecified place in nursing home as the place of occurrence of the external cause

== ENCOUNTER 2018-11-30 15:48 | Inpatient (IN) | payer MEDICARE, MEDICAID ==
--- NOTE | 2018-11-30 16:12 | ED.PDOC ---
History of Present Illness - General Chief Complaint: Respiratory Problem Stated Complaint: shortness of breath, elevated HR Time Seen by Provider: 11/30/18 16:04 Source: patient, family, EMS Exam Limitations: no limitations - History of Present Illness Initial Comments: patient comes in today for worsening shortness of breath 2 days. Patient just recently finished being treated for pneumonia a few days ago and 2 days she was almost completely normal. Patient states yesterday then she got very short of breath and was extremely fatigued. Patient states this morning it was much worse and her oxygen level seemed to decrease with even short burst of activity. She does normally require oxygen via nasal cannula at 2 L but normally she did do basic activities without it without difficulty. Patient continues to have a severe cough with purulent yellow sputum but no fever or chills. She does have a history of atrial fibrillation and her heart rate was noted to be in the 130s over the last day. Additionally, she's had a history of clot from the atrial fibrillation causing her to be chronically anticoagulated. She is bedridden after a final fracture of her left tibia did not heal well. Patient denies any chest pain but has some wheezing. She has no past history of asthma or emphysema. She is not a smoker. patient is a custodial patient. Timing/Duration: days - 2, getting worse Severity: severe Activities at Onset: rest Possible Cause: no prior episodes Improving Factors: medication - two breathing treatments en route seemed to have helped Worsening Factors: movement Associated Symptoms: cough, wheezing Respiratory Risk Factors: no cause identified Allergies/Adverse Reactions: Allergies Cefazolin [From Ancef] Allergy (Unknown, Verified 10/05/17 15:39) Rash Mupirocin [From Bactroban] Allergy (Verified 10/05/17 15:39) Hives Mushroom Extract Complex Allergy (Verified 08/28/15 11:16) Sulfa Antibiotics Allergy (Verified 10/05/17 15:39) Other Made patient itch adhesive tape Allergy (Intermediate, Uncoded 03/26/14 12:39) Rash pt got blisters Home Medications: Ambulatory Orders Celecoxib [Celebrex] 200 mg PO DAILY 06/27/12 Gabapentin [Neurontin] 600 mg PO TID 06/27/12 Metoprolol Tartrate [Lopressor] 50 mg PO BID 06/27/12 Multiple Vitamins W/ Minerals [Multi Vitamin/Minerals Fu] 1 tab PO DAILY 06/27/12 Amlodipine Besylate [Norvasc] 10 mg PO DAILY 03/26/14 Ascorbic Acid [Vitamin C] 500 mg PO BID 03/26/14 Diltiazem HCl [Cardizem] 120 mg PO DAILY 03/26/14 Ergocalciferol [Vitamin D] 50,000 unit PO TH@0900 03/26/14 Ropinirole Hydrochloride [Requip] 2 mg PO BID 03/26/14 Diphenhydramine HCl 50 mg PO Q6H PRN 08/28/15 Isosorbide Mononitrate [Imdur] 30 mg PO DAILY 05/14/16 Magnesium Hydroxide [Milk Of Magnesia] 30 ml PO DAILY PRN 05/14/16 Omeprazole [Prilosec] 40 mg PO DAILY PRN 05/14/16 Primidone 250 mg PO BID 05/14/16 Rivaroxaban [Xarelto] 20 mg PO BEDTIME 05/14/16 Simethicone 80 mg PO QID PRN 05/14/16 Acetaminophen [Tylenol] 650 mg PO Q6H PRN 11/07/16 Alum & Mag Hydrox-Simethicone [Christy-[place] 200-200-20 mg/5Ml] 30 ml PO Q8H PRN 11/07/16 Ferrous Sulfate 325 mg PO DAILY 11/07/16 Furosemide 40 mg PO BID 11/07/16 Levalbuterol HCl [Xopenex] 1.25 mg IN Q6H PRN 11/07/16 Loperamide HCl 4 mg PO DAILY PRN MDD 8 MG 11/07/16 Potassium Chloride [Potassium Chloride ER] 20 meq PO DAILY 11/07/16 Tramadol HCl 50 - 100 mg PO BID PRN 11/07/16 Allopurinol 300 mg PO DAILY 09/24/17 Benzonatate Perles [Tessalon Perles] 100 mg PO TID PRN 09/24/17 Cetirizine HCl [Zyrtec Allergy] 10 mg PO PRN PRN 09/24/17 Cranberry (Vaccinium Macrocarp [Cranberry] 1,000 mg PO DAILY 09/24/17 Dicyclomine HCl [Bentyl] 10 mg PO BID 09/24/17 Lactobacillus [Acidophilus] 1 cap PO DAILY 09/24/17 Loteprednol Etabonate [Lotemax] 1 drop BOTH_EYES BID 09/24/17 Melatonin 5 mg PO BEDTIME PRN 09/24/17 Nystatin Powder 1 applic TOP BID 09/24/17 Polyvinyl Alcohol [Artificial Tears] 1 drop BOTH_EYES TID 09/24/17 HYDROcodone 7.5MG/APAP 325MG [[place] 7.5/325] 1 tab PO BID PRN 09/25/17 Ipratropium/Albuterol [Duoneb] 3 ml INH DAILY PRN 09/25/17 Review of Systems - Review of Systems Constitutional: States: malaise EENTM: States: no symptoms reported. Denies: eye pain, tearing, ear pain, nose congestion, throat pain Respiratory: States: cough, short of breath, wheezing Cardiology: States: no symptoms reported. Denies: chest pain, edema, palpitations Gastrointestinal/Abdominal: States: no symptoms reported. Denies: abdominal pain, constipation, diarrhea, nausea, vomiting Genitourinary: States: no symptoms reported Musculoskeletal: States: no symptoms reported Past Medical History (General) - Patient Medical History Hx Seizures: No Hx Stroke: No Hx Dementia: No Hx Asthma: No Hx of COPD: Yes Hx Cardiac Disorders: Yes - blood clot in [facility] Hx Congestive Heart Failure: No Hx Pacemaker: No Hx Hypertension: Yes Hx Thyroid Disease: No Hx Diabetes: No Hx Gastroesophageal Reflux: Yes Hx Renal Disease: No Hx Cancer: No Hx of HIV: No Hx Hepatitis C: No Hx MRSA: No MRSA Source:: Wound - Vaccination History Hx Tetanus, Diphtheria Vaccination: No Hx Influenza Vaccination: Yes - 2018 Hx Pneumococcal Vaccination: Yes - 2018 - Social History Hx Tobacco Use: No Hx Chewing Tobacco Use: No Hx Alcohol Use: No Hx Substance Use: No Hx Substance Use Treatment: No Hx Depression: No Hx Physical Abuse: No Hx Emotional Abuse: No Hx Suspected Abuse: No - Female History Patient : No Family Medical History - Family History Mother Family History: No Known Living Status: Hx Cardiac Disease: Yes Hx Family Cancer: Yes - urinary bladder Physical Exam - Physical Exam General Appearance: Ill Appearing, Obese Eyes, Ears, Nose, Throat Exam: PERRL/EOMI, normal ENT inspection, TMs normal, pharynx normal Neck: non-tender, full range of motion, supple, normal inspection Respiratory: decreased breath sounds, wheezing - tight BS in all lung young Cardiovascular/Chest: normal peripheral pulses, irregularly irregular Peripheral Pulses: radial,right: 2+, radial,left: 2+ Gastrointestinal/Abdominal: normal bowel sounds, non tender, soft Neurologic: alert, oriented x 3 Progress - Progress Progress: 11/30/18 19:21 after cardizem, rate resolved to 90s and symptoms resolved. Called to boil[employer] Collins Guevara and he will monitor and titrate if needed medication for rate control. - Results/Orders Results/Orders: 11/30/18 16:15 EKG STAT 11/30/18 16:29 BLOOD CULTURE Stat 11/30/18 18:35 Chest,1 View [RAD] Stat Laboratory Results WBC 8.0 K/mm3 (4.8-10.8) 11/30/18 15:40 RBC 3.68 M/mm3 (4.20-5.40) L 11/30/18 15:40 Hgb 11.7 gm/dL (12.0-16.0) L 11/30/18 15:40 Hct 36.5 % (36.0-47.0) 11/30/18 15:40 MCV 99.0 fl (81.0-99.0) 11/30/18 15:40 MCH 31.8 pg (27.0-31.0) H 11/30/18 15:40 MCHC 32.1 g/dL (33.0-37.0) L 11/30/18 15:40 RDW 14.1 % (11.5-14.5) 11/30/18 15:40 Plt Count 267 K/mm3 (130-400) 11/30/18 15:40 MPV 8.1 fl (7.40-10.4) 11/30/18 15:40 Absolute Neuts (auto) 6.40 K/uL (1.8-6.8) 11/30/18 15:40 Absolute Lymphs (auto) 0.80 K/uL (1.0-3.4) L 11/30/18 15:40 Absolute Monos (auto) 0.60 K/uL (0.2-0.8) 11/30/18 15:40 Absolute Eos (auto) 0.20 K/uL (0.0-0.4) 11/30/18 15:40 Absolute Basos (auto) 0.00 K/uL (0.0-0.1) 11/30/18 15:40 Neutrophils % 80.1 % (42.0-78.0) H 11/30/18 15:40 Lymphocytes % 10.0 % (20.0-50.0) L 11/30/18 15:40 Monocytes % 7.6 % (2.0-9.0) 11/30/18 15:40 Eosinophils % 2.1 % (1.0-5.0) 11/30/18 15:40 Basophils % 0.2 % (0.0-2.0) 11/30/18 15:40 Sodium 140 mmol/L (135-145) 11/30/18 15:40 Potassium 4.1 mmol/L (3.6-5.0) 11/30/18 15:40 Chloride 88 mmol/L (101-111) L 11/30/18 15:40 Carbon Dioxide 41 mmol/L (21-31) H 11/30/18 15:40 Anion Gap 15.1 (12-18) 11/30/18 15:40 BUN 11 mg/dL (7-18) 11/30/18 15:40 Creatinine 0.43 mg/dL (0.6-1.3) L 11/30/18 15:40 BUN/Creatinine Ratio 25.6 (10-20) H 11/30/18 15:40 Random Glucose 132 mg/dL (70-105) H 11/30/18 15:40 Serum Osmolality 280.7 mOsm/L (275-295) 11/30/18 15:40 Lactic Acid 1.7 mmol/L (0.5-2.2) 11/30/18 16:29 Calcium 8.6 mg/dL (8.4-10.2) 11/30/18 15:40 Magnesium 1.6 mg/dL (1.8-2.5) L 11/30/18 15:40 Total Bilirubin 0.5 mg/dL (0.2-1.0) 11/30/18 15:40 AST 19 IU/L (10-42) 11/30/18 15:40 ALT 13 IU/L (10-60) 11/30/18 15:40 Alkaline Phosphatase 93 IU/L (42-121) 11/30/18 15:40 Creatine Kinase 20 IU/L (26-140) L 11/30/18 15:40 CK-MB (CK-2) 1.1 ng/mL (0.0-4.4) 11/30/18 15:40 CK-MB (CK-2) % Not Reportable 11/30/18 15:40 Troponin I < 0.02 ng/mL (0.01-0.05) 11/30/18 15:40 B-Natriuretic Peptide 70.2 pg/ml (0-100) 11/30/18 15:40 Serum Total Protein 7.2 gm/dL (6.4-8.2) 11/30/18 15:40 Albumin 2.6 g/dl (3.2-5.5) L 11/30/18 15:40 Globulin 4.6 gm/dL (2.3-3.5) H 11/30/18 15:40 Albumin/Globulin Ratio 0.6 (1.1-1.9) L 11/30/18 15:40 Patient Name: MEL BRYANT Gender: Female Date of : 1945 Referring Physician: LUKE WESTON Organization: [facility] Accession Number: [id number] Requested Date: November 30, 2018 16:04 Report Status: Final Requested Procedure: 1 Procedure Description: Chest,1 View Modality: CR Findings Reporting MD: Winston Alexander Fellow MD: Not available Dictation Time: Pile Header: Not available Aids Nurse Date: EXAM DESCRIPTION: Chest,1 View CLINICAL HISTORY: 73 years Female, shortness of breath COMPARISON: 10/18/2017 TECHNIQUE: Single frontal view of the chest. IMPRESSION: Cardiac silhouette is stably enlarged. Aorta is partially calcified. Bilateral perihilar congestion and mild patchy airspace opacities throughout the lungs likely from combination of pulmonary edema and accentuated pulmonary markings due to suboptimal inspiratory volume. There is silhouetting of the left hemidiaphragm which may be secondary to poor penetration during image acquisition versus left basal consolidation such as pneumonia or aspiration. Probable small left pleural effusion. No right pleural effusion. No pneumothorax. Thoracic spondylosis. Advanced arthropathy of the left glenohumeral joint. Electronically signed by: Winston Alexander MD 11/30/2018 4:30 PM CDT Procedures - Central Line Right Subclavian vein Central Line Lumen: triple Central Line Procedure Prep: betadine prep, sterile drapes applied Anesthesia: Lidocaine cc's of anesthesia: 8 Complications: none Central Line Post Position: sutured, good blood return, position confirmed w/ CXR Departure - Departure Clinical Impression: A-fib Qualifiers: Atrial fibrillation type: chronic Qualified Code(s): I48.2 - Chronic atrial fibrillation Disposition: Admit Patient Condition: Fair Departure Forms: ED Discharge - Pt. Copy, Patient Portal Self Enrollment Referrals: Glen Dobson MD [Active Staff] - 1-2 Weeks Home Medications: Ambulatory Orders Celecoxib [Celebrex] 200 mg PO DAILY 06/27/12 Gabapentin [Neurontin] 600 mg PO TID 06/27/12 Metoprolol Tartrate [Lopressor] 50 mg PO BID 06/27/12 Multiple Vitamins W/ Minerals [Multi Vitamin/Minerals Fu] 1 tab PO DAILY 06/27/12 Amlodipine Besylate [Norvasc] 10 mg PO DAILY 03/26/14 Ascorbic Acid [Vitamin C] 500 mg PO BID 03/26/14 Diltiazem HCl [Cardizem] 120 mg PO DAILY 03/26/14 Ergocalciferol [Vitamin D] 50,000 unit PO TH@0900 03/26/14 Ropinirole Hydrochloride [Requip] 2 mg PO BID 03/26/14 Diphenhydramine HCl 50 mg PO Q6H PRN 08/28/15 Isosorbide Mononitrate [Imdur] 30 mg PO DAILY 05/14/16 Magnesium Hydroxide [Milk Of Magnesia] 30 ml PO DAILY PRN 05/14/16 Omeprazole [Prilosec] 40 mg PO DAILY PRN 05/14/16 Primidone 250 mg PO BID 05/14/16 Rivaroxaban [Xarelto] 20 mg PO BEDTIME 05/14/16 Simethicone 80 mg PO QID PRN 05/14/16 Acetaminophen [Tylenol] 650 mg PO Q6H PRN 11/07/16 Alum & Mag Hydrox-Simethicone [Christy-[place] 200-200-20 mg/5Ml] 30 ml PO Q8H PRN 11/07/16 Ferrous Sulfate 325 mg PO DAILY 11/07/16 Furosemide 40 mg PO BID 05/07/17 Levalbuterol HCl [Xopenex] 1.25 mg IN Q6H PRN 11/07/16 Loperamide HCl 4 mg PO DAILY PRN MDD 8 MG 11/07/16 Potassium Chloride [Potassium Chloride ER] 20 meq PO DAILY 11/07/16 Tramadol HCl 50 - 100 mg PO BID PRN 11/07/16 Allopurinol 300 mg PO DAILY 09/24/17 Benzonatate Perles [Tessalon Perles] 100 mg PO TID PRN 09/24/17 Cetirizine HCl [Zyrtec Allergy] 10 mg PO PRN PRN 09/24/17 Cranberry (Vaccinium Macrocarp [Cranberry] 1,000 mg PO DAILY 09/24/17 Dicyclomine HCl [Bentyl] 10 mg PO BID 09/24/17 Lactobacillus [Acidophilus] 1 cap PO DAILY 09/24/17 Loteprednol Etabonate [Lotemax] 1 drop BOTH_EYES BID 09/24/17 Melatonin 5 mg PO BEDTIME PRN 09/24/17 Nystatin Powder 1 applic TOP BID 09/24/17 Polyvinyl Alcohol [Artificial Tears] 1 drop BOTH_EYES TID 09/24/17 HYDROcodone 7.5MG/APAP 325MG [[place] 7.5/325] 1 tab PO BID PRN 09/25/17 Ipratropium/Albuterol [Duoneb] 3 ml INH DAILY PRN 09/25/17 Decision To Admit - Decistion To Admit Decision to Admit Reason: Admit from ER Decision to Admit Date: 11/30/18 Decision to Admit Time: 19:22
--- NOTE | 2018-11-30 16:32 | RAD ---
EXAM DESCRIPTION: Chest,1 View CLINICAL HISTORY: 73 years Female, shortness of breath COMPARISON: 10/18/2017 TECHNIQUE: Single frontal view of the chest. IMPRESSION: Cardiac silhouette is stably enlarged. Aorta is partially calcified. Bilateral perihilar congestion and mild patchy airspace opacities throughout the lungs likely from combination of pulmonary edema and accentuated pulmonary markings due to suboptimal inspiratory volume. There is silhouetting of the left hemidiaphragm which may be secondary to poor penetration during image acquisition versus left basal consolidation such as pneumonia or aspiration. Probable small left pleural effusion. No right pleural effusion. No pneumothorax. Thoracic spondylosis. Advanced arthropathy of the left glenohumeral joint. Electronically signed by: Winston Alexander MD 11/30/2018 4:30 PM CDT
[2018-11-30] MEDS ORDERED: HYDROcodone 7.5MG/APAP 325MG 1 EA TAB PO ONE (19:12)
--- NOTE | 2018-11-30 19:13 | RAD ---
EXAM: XR Chest, 1 View CLINICAL HISTORY: 73 years old and is Female; Central line placement TECHNIQUE: Frontal view of the chest. Images obtained at 6:46 PM. COMPARISON: 4:13 PM the same day FINDINGS: Limitations: None. Lungs: Mild increase in atelectasis and vascular congestion. Pleural space: Unremarkable. No pneumothorax. Heart: Stable cardiac enlargement. Mediastinum: Unremarkable. Bones/joints: Unremarkable. Tubes, lines and devices: Right subclavian catheter terminates at the cavoatrial junction. IMPRESSION: 1. Mild increase in atelectasis and vascular congestion. 2. Lines and tubes as above. Electronically signed by: Guerline Urbano MD 11/30/2018 7:11 PM CDT
--- NOTE | 2018-11-30 20:41 | HP ---
SUPERVISING PHYSICIAN: Romaine Newton MD CHIEF COMPLAINT: Palpitations and shortness of breath. HISTORY OF PRESENT ILLNESS: Ms. Pineda is a 73-year-old female patient that resides at [facility]. She noted she had some increasing shortness of breath over the last two days. She reports that she finished a 10- day course of Levaquin yesterday for what was told to her she had the "crud." She noticed yesterday when she was doing her normal activities and they were trying to move her that her heart rate was increasing and she was getting significantly short of breath. Today, it worsened to the point that she had a noted heart rate on vital signs in the 130s and was taken to the Emergency Room for evaluation. She does take rate control medicines which include Lopressor and in the past been on Cardizem, but was taken off Cardizem due to issues with hypotension. She is also on chronic anticoagulation with Xarelto. She does have a history of Pickwickian syndrome a body mass index greater than 65 with current weight of 190 kg. At night, she wears BiPAP. She denied any shortness of breath or cough other than associated with palpitations. She was reporting no chest pains. She is bedridden. She has had femur fractures bilaterally and has had multiple surgeries in which they have been fixed and she is no longer able to ambulate. She normally gets moved with a Chelsey lift, but notes she was in her fairly normal state of health in the last week other than the "crud" and today the palpitations continued. Initial vital signs in the Emergency Room showed a heart rate of 140. EKG showed atrial fibrillation with rapid ventricular response. She was then treated with Cardizem IV which did provide good rate control into the 90s. Blood pressure was stable. In fact, she was hypertensive with blood pressure 142/97, but saturation was 94% on nasal cannula at 3 liters. She is O2 dependent. On room air, oxygen saturation was 82%. She was running a low grade fever at 99. Laboratory studies were fairly unremarkable. White count was within normal limits, no left shift. She did have elevated carbon dioxide at 41, but does have a history of Pickwickian and again is morbidly obese. Magnesium was low at 1.6. Calcium was normal at 8.7. Lactic acid was normal at 1.7. Troponin less than 0.02, BNP normal at 70. Given the patient's symptomatology, poor rate control and needing IV Cardizem initially for rate control, Dr. Perry, Emergency Room physician, requested the patient be admitted for help with further management of oral medications to keep her rate controlled. She is now going to be admitted in Observation with close cardiac telemetry and initiation of Cardizem. She was placed in Observation in stable condition. PAST MEDICAL HISTORY: 1. Pickwickian syndrome due to morbid obesity. 2. Hyperlipidemia. 3. Hypertension. 4. Osteoarthritis. 5. Chronic atrial fibrillation with previous history of thrombus, on chronic Xarelto. 6. History of abdominal aortic aneurysm, followed by Dr. Lauren with last measurement noted on H&P done in 2018 showing 4.2 cm which was from 2017. 7. History of multiple urinary tract infections. 8. Chronic left femur wound and multiple knee revisions that required aggressive long-term therapy with antibiotics which has resolved with treatment. PAST SURGICAL HISTORY: 1. Cholecystectomy. 2. Bilateral knee replacement with the left knee having been replaced secondary to femur fracture in July of [address] Rock and subsequent chronic wound infections having been treated with daptomycin to completion of healing. 3. Left total hip replacement. 4. Bilateral shoulder surgeries. 5. Right elbow surgery. MEDICATIONS: The patient is on multiple medications. We are still awaiting an updated list to verify those. Please see the updated list in the medical records. ALLERGIES: BACTROBAN, ANCEF, SULFA ANTIBIOTICS, ADHESIVE TAPE, MUSHROOM EXTRACT COMPLEX. FAMILY HISTORY: The patient's mother and father are both . Father had a history of congestive heart failure and mother had Alzheimer's. SOCIAL HISTORY: The patient is a resident of [facility]. She is disabled. She has no history of alcohol or tobacco abuse. REVIEW OF SYSTEMS: CONSTITUTIONAL: Negative for any fevers, chills, but notes she has had significant weight since last admission as she is bedridden. HEENT: Denies headaches, nasal congestion, sore throats, earaches. RESPIRATORY: Recent upper respiratory infection treated with Levaquin, but denies any current shortness of breath, wheezing. She does have a mildly productive cough. CARDIOVASCULAR: Negative for chest pain. She does have palpitations as noted in history of present illness with a history of chronic atrial fibrillation and on chronic Xarelto with rate control with beta wally. GASTROINTESTINAL: Negative for nausea, vomiting, but has had some antibiotic associated diarrhea after taking Levaquin. She denies any current diarrhea, abdominal discomfort or constipation. MUSCULOSKELETAL: As noted, previous femur fracture, multiple surgeries on left leg with no reported new symptoms. 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 SKIN: She denies any current rashes, lesions or skin breakdown. PHYSICAL EXAMINATION: VITAL SIGNS: Initial heart rate was 140, temperature 99, blood pressure 142/95, respirations 20, saturation 96% on nasal cannula at 3 liters and 82% on room air. Admission weight 190 kg. After rate control with Cardizem, heart rate was regular rate at 90, blood pressure 127/86. GENERAL: The patient is grossly obese, appears to be in no acute distress at time of exam. She is alert. HEENT: Tympanic membranes clear bilaterally. Oropharynx is pink, moist without any lesions. NECK: Supple, nontender with full range of motion. No jugular venous distention noted. RESPIRATORY: Lung sounds were diminished towards the bases, but difficult to hear due to body mass. She had some initial rhonchi that cleared with cough. No rales or wheezing noted. CARDIOVASCULAR: Irregular rate and rhythm with current rate of 112. No appreciable murmurs, gallops, or rubs. ABDOMEN: Morbidly obese, soft, nontender. Positive bowel sounds. BACK: Exam deferred due to the patient's body habitus. GENITOURINARY: She has a chronic Fitzgerald catheter in place. NEUROLOGIC: The patient is alert and oriented times three. INTEGUMENT: No obvious skin breakdown, rashes or lesions. Full skin exam deferred due to inability to move the patient due to body habitus. The patient reports she has no major skin breakdown on her buttocks, but has had some problems after antibiotics. LABORATORY: White count 8,000, hemoglobin 11.7, hematocrit 36.5, platelet count 267,000. Differential is without a left shift. Chemistries showed sodium 140, carbon dioxide 41 which is about her normal level, BUN 11, creatinine 0.43, glucose 132, lactic acid 1.7, magnesium 1.6, calcium 8.6. Liver functions all within normal limits. Troponin within normal limits at less than 0.02 with normal BNP of 70. Urinalysis pending. MICROBIOLOGY: Blood cultures were drawn in the Emergency Room. RADIOLOGY: Chest x-ray initially on admission to the Emergency Room and per radiologic interpretation showed bilateral peripheral congestion, mild patchy airspace opacities throughout the lungs, likely from combination of pulmonary edema and accentuated pulmonary markings due to suboptimal inspiratory volume. Probable small left pleural effusion, no right pleural effusion, no pneumothorax. After central line placement, right sided subclavian placement by Dr. Perry, followup x-ray showed mild increase in atelectasis and vascular congestion with right subclavian catheter terminated within the cavoatrial junction. ASSESSMENT: 1. Chronic atrial fibrillation with rapid ventricular response requiring IV Cardizem and further initiation of oral Cardizem for rate control with the patient on chronic anticoagulation with Xarelto. 2. Electrolyte imbalance with hypomagnesemia, possibly contributing to #1. 3. Pickwickian syndrome due to morbid obesity with body mass index greater than 65. 4. Hypertension. 5. Osteoarthritis. 6. Hyperlipidemia. 7. Aortic aneurysm being followed by Dr. Lauren. Last measurement in the chart was 4.2 cm. 8. History of chronic urinary tract infection with chronic indwelling Fitzgerald catheter due to body habitus with urinalysis pending. PLAN: Ms. Pineda is going to be placed in Observation overnight for further cardiac telemetry monitoring to ensure she has good rate control after receiving Cardizem in the Emergency Room. The plan at this point will be to start her on immediate release Cardizem at 30 mg q.6h. with anticipation of probably discharging the patient on 120 mg controlled release at discharge. Should she continue to have poor rate control, certainly we will give consideration to a Cardizem drip. She is already on Xarelto for DVT prophylaxis. Once her medications have been updated, those will be reviewed and restarted as appropriate to the patient's care. We will anticipate her length of stay to be at least one to two discharge and will probably discharge later tomorrow or Tuesday. She will be on continuous cardiac telemetry. I requested Respiratory to work with her on her BiPAP if able to be sent over and if not to utilize the hospital's equipment. The nurses have instructions as best possible to ensure the patient turns every 2 hours, although due to her body habitus, this is going to be a very difficult process. Movement in the patient's normal day is usually assisted with a Chelsey lift. Again, there are no signs of infection at this point. She just finished a 10-day course of Levaquin. Therefore, I will hold off on any antibiotic coverage. There is a urinalysis pending and we will certainly treat if needed, but if the patient continues to show good response treatment overnight, I anticipate discharging back to [facility] tomorrow or Tuesday. Until then, we will continue to monitor and treat as needed. #[id number] [facility]
[2018-11-30] MEDS ORDERED: ACETAMINOPHEN 325 MG TAB PO PRN (22:14)
[2018-11-30] MEDS ORDERED: MAGNESIUM SULFATE PREMIX 2GM 2 GM in PREMIX BAG 1 BAG IVPB ONE (22:19)
[2018-11-30] MEDS ORDERED: MAGNESIUM SULFATE PREMIX 2GM 50 ML IVPB ONE (22:47)
[2018-11-30] MEDS: IV SET AND CAP CHANGE INJ INJ SCH (22:50)
[2018-11-30] MEDS: diltiaZEM HCL TAB 30 MG TAB PO SCH (22:50)
[2018-11-30] MEDS: SODIUM CHLORIDE 0.9% (FLUSH) 10 ML SYG IV PRN (22:51)
[2018-12-01] MEDS: diltiaZEM HCL TAB 30 MG TAB PO SCH ×4 (04:23→20:50)
[2018-12-01] MEDS ORDERED: RIVAROXABAN 10 MG TAB PO ONE (07:39)
[2018-12-01] MEDS ORDERED: MAGNESIUM HYDROXIDE 30 ML UD PO PRN (08:03)
[2018-12-01] MEDS ORDERED: IPRATROPIUM/ALBUTEROL 3 ML VIAL NEB PRN ×2 (08:03→08:47)
[2018-12-01] MEDS ORDERED: ACETAMINOPHEN 325 MG TAB PO PRN (08:03)
[2018-12-01] MEDS ORDERED: NYSTATIN POWDER 15GM BTTL TOP PRN (08:03)
[2018-12-01] MEDS ORDERED: LEVALBUTEROL NEBS 1.25 MG/3 ML VIAL NEB PRN (08:03)
[2018-12-01] MEDS ORDERED: PANTOPRAZOLE SODIUM TAB 40 MG PO PRN (08:03)
[2018-12-01] MEDS ORDERED: traMADol HCL 50 MG TAB PO PRN (08:03)
--- NOTE | 2018-12-01 09:52 | PN ---
DATE: 12/01/18 SUBJECTIVE: The patient is sitting up in bed having finished her breakfast. She states she is feeling much better than yesterday, is not noticing her heart "beating out of her chest." She has many proliferative stories of her history with medications. It seems she had been on diltiazem until 2 years ago and she was stopped after being hospitalized for pneumonia in [place]. She was having issues with hypotension at that time and was not in atrial fibrillation, thus it was stopped. She has not been on it since then. She does state the levofloxacin was added to her allergy list here just yesterday. She states she has had problems with it in the past regarding interactions with medications potentially her heart. REVIEW OF SYSTEMS: GENERAL: Denies fevers and chills, feeling a little bit better. RESPIRATORY: No shortness of breath, no cough. CARDIOVASCULAR: Denies chest pain, very minimal intermittent palpitations. GASTROINTESTINAL: Normal bowel movements, using bedpan without problems. NEUROLOGIC: Denies confusion or any headaches. OBJECTIVE: VITAL SIGNS: Temperature 98.1. Heart rate 109 and irregular. Blood pressure 137/78. Respiratory rate 20. O2 saturation 95% on 2 liters. GENERAL: The patient is lying in bed comfortably, is bedbound and morbidly obese. RESPIRATORY: Lungs clear to auscultation without crackles or wheezes. CARDIOVASCULAR: Tachycardic with irregularly-irregular rhythm, baseline +1 pitting edema bilateral lower extremities. GASTROINTESTINAL: Soft, nontender, no abrupt changes in girth per the patient. NEUROLOGIC: Alert and oriented to person, place and time, no confusion, moving extremities normally at baseline. LABORATORY: No new laboratory since admission. MICROBIOLOGY: Blood cultures pending x2. IMAGING: No new imaging since admission. ASSESSMENT: 1. Chronic atrial fibrillation with rapid ventricular response requiring IV Cardizem and further initiation of oral Cardizem for rate control with the patient on chronic anticoagulation with Xarelto. 2. Electrolyte imbalance with hypomagnesemia, possibly contributing to #1. 3. Pickwickian syndrome due to morbid obesity with body mass index greater than 65. 4. Hypertension. 5. Osteoarthritis. 6. Hyperlipidemia. 7. Aortic aneurysm being followed by Dr. Lauren. Last measurement in the chart was 4.2 cm. 8. History of chronic urinary tract infection with chronic indwelling Fitzgerald catheter due to body habitus with urinalysis pending. PLAN: Ms. Pineda is currently being attempted to transition to adequate rate control with p.o. Cardizem. She previously was on 120 mg once daily, thus, we have started her at 30 mg of diltiazem p.o. q.6h. Given her history of intolerance to the medication with hypotension, we will approach this slowly. She required an extra IV dose of diltiazem 25 mg just prior to midnight on 11/30/18, I have given her one more 25 mg dose of IV diltiazem this morning. I presume her heart rate will gradually be controlled over today. The ultimate goal regarding her atrial fibrillation will be to resume a stable dose of p.o. Cardizem, most likely it will be somewhere near 120 mg per day. After thorough review of her home medication list, I decided to stop her home amlodipine as she is not hypertensive at this time and we are in active pursuit of controlling her heart rate. If she becomes hypertensive as we control her heart, we can slowly add this back in if needed. I presume her stay will be at least 2 more midnights, we can discharge back to [facility] once her heart rate is under control. We will also recheck her magnesium tomorrow, 12/02/18, to confirm normalization. #[id number] [facility]
[2018-12-01] MEDS: GABAPENTIN 300 MG CAP PO SCH ×2 (10:04→20:51)
[2018-12-01] MEDS: CELECOXIB 100 MG CAP PO SCH (10:04)
[2018-12-01] MEDS: POTASSIUM CHLORIDE 20 MEQ TAB PO SCH (10:04)
[2018-12-01] MEDS: ASCORBIC ACID 500 MG TAB PO SCH ×2 (10:04→20:51)
[2018-12-01] MEDS: BIFIDOBACTERIUM INFANTIS 4 MG CAP PO SCH (10:04)
[2018-12-01] MEDS: FERROUS SULFATE 325 MG TAB PO SCH (10:05)
[2018-12-01] MEDS: POLYVINYL ALCOHOL 1.4% OPHTH SOL 1 DROP BOTH_EYES SCH ×4 (10:09→20:51)
[2018-12-01] MEDS: FUROSEMIDE 40 MG TAB PO SCH ×2 (10:09→20:51)
[2018-12-01] MEDS: ISOSORBIDE MONONITRATE (IMDUR) 30 MG TAB PO SCH (10:09)
[2018-12-01] MEDS: PRIMIDONE 50 MG TAB PO SCH ×2 (10:26→20:51)
[2018-12-01] MEDS: RIVAROXABAN 10 MG TAB PO SCH (18:39)
[2018-12-01] MEDS ORDERED: diltiaZEM HCL TAB 30 MG TAB PO SCH (19:56)
[2018-12-01] MEDS: HYDROcodone 10MG/APAP 325MG 1 EA TAB PO PRN ×2 (21:03→22:05)
[2018-12-02] MEDS: diltiaZEM HCL TAB 30 MG TAB PO SCH ×4 (02:49→20:38)
[2018-12-02] MEDS: CELECOXIB 100 MG CAP PO SCH (09:51)
[2018-12-02] MEDS: FERROUS SULFATE 325 MG TAB PO SCH (09:53)
[2018-12-02] MEDS: POTASSIUM CHLORIDE 20 MEQ TAB PO SCH (09:53)
[2018-12-02] MEDS: ISOSORBIDE MONONITRATE (IMDUR) 30 MG TAB PO SCH (09:53)
[2018-12-02] MEDS: POLYVINYL ALCOHOL 1.4% OPHTH SOL 1 DROP BOTH_EYES SCH ×4 (09:54→20:39)
[2018-12-02] MEDS: FUROSEMIDE 40 MG TAB PO SCH ×2 (09:54→20:38)
[2018-12-02] MEDS: GABAPENTIN 300 MG CAP PO SCH ×2 (09:54→20:38)
[2018-12-02] MEDS: ASCORBIC ACID 500 MG TAB PO SCH ×2 (09:54→20:38)
[2018-12-02] MEDS: BIFIDOBACTERIUM INFANTIS 4 MG CAP PO SCH (09:54)
[2018-12-02] MEDS: PRIMIDONE 50 MG TAB PO SCH ×2 (10:02→20:38)
[2018-12-02] MEDS: HYDROcodone 10MG/APAP 325MG 1 EA TAB PO PRN ×2 (10:02→23:35)
[2018-12-02] MEDS ORDERED: OXYMETAZOLINE NASAL SPRAY 15 ML BTTL BNAS PRN (12:06)
[2018-12-02] MEDS ORDERED: SODIUM CHLORIDE 0.65% NASAL SPRAY 45 ML BTTL BNAS PRN (12:06)
[2018-12-02] MEDS: BENZONATATE PERLES 100 MG CAP PO PRN (13:27)
[2018-12-02] MEDS: RIVAROXABAN 10 MG TAB PO SCH (17:42)
--- NOTE | 2018-12-02 19:17 | PN ---
DATE: 12/02/18 SUPERVISING PHYSICIAN: Eleazar Shukla M.D. SUBJECTIVE: The patient seems to be doing pretty well with her heart rate. We did go up on her Cardizem and it made her a little bit hypotensive, but she rebounded and has had no complications. She denied having any chest pain. Her biggest complaint at this point is just a nonproductive cough. OBJECTIVE: VITAL SIGNS: Heart rate is still irregular ranging between 92 to 117. blood pressure 111/72, respirations 18, satting 92% on 2 liters nasal cannula. I's and O's show a negative balance of 1040, weight 178.2 kg. GENERAL: The patient is resting comfortably. Appears to be in no acute distress. She is alert. CHEST: Sounds were diminished but no notable rhonchi, wheezing or rales, just diminished throughout due to body habitus. HEART: Slightly irregular rate and rhythm. ABDOMEN: Morbidly obese but soft, non- tender. Positive bowel sounds. EXTREMITIES: Trace of edema. NEUROLOGIC: She is alert and oriented times three. LABORATORY: No additional laboratory other than magnesium showing to be now normal levels at 1.8. No radiographic studies. ASSESSMENT: 1. Chronic atrial fibrillation with rapid ventricular response requiring ongoing management with oral Cardizem for rate control with the patient being on chronic anticoagulation with Xarelto. 2. Electrolyte imbalance with hypomagnesemia, possibly contributing to #1. 3. Pickwickian syndrome due to morbid obesity with body mass index greater than 65. 4. Hypertension. 5. Osteoarthritis. 6. Hyperlipidemia. 7. Aortic aneurysm being followed by Dr. Lauren. Last measurement in the chart was 4.2 cm. 8. History of chronic urinary tract infection with chronic indwelling Fitzgerald catheter due to body habitus with urinalysis pending. PLAN: Will continue plan of care at this point with Diltiazem at 60 every 6 hours. She seems to be having a little bit of issues with blood pressure, therefore we need to make sure she is going to be stable on this and tolerating it at least for 24 hours. If she does tolerate that dose range, then will start her on possibly controlled release at 240 tomorrow and see how she does. Anticipate probably discharging on Tuesday if we can get her heart rate controlled with oral medication. Until then, will continue to monitor and treat. Once she is stable she will return back to [facility]. #[id number] ALAN
[2018-12-02] MEDS: SODIUM CHLORIDE 0.9% (FLUSH) 10 ML SYG IV PRN (20:38)
[2018-12-03] MEDS: LEVALBUTEROL NEBS 1.25 MG/3 ML VIAL NEB PRN (02:35)
[2018-12-03] MEDS: diltiaZEM HCL TAB 30 MG TAB PO SCH (03:21)
[2018-12-03] MEDS: POLYVINYL ALCOHOL 1.4% OPHTH SOL 1 DROP BOTH_EYES SCH ×4 (09:33→21:18)
[2018-12-03] MEDS: ASCORBIC ACID 500 MG TAB PO SCH ×2 (09:34→21:19)
[2018-12-03] MEDS: CELECOXIB 100 MG CAP PO SCH (09:34)
[2018-12-03] MEDS: GABAPENTIN 300 MG CAP PO SCH ×2 (09:34→21:18)
[2018-12-03] MEDS: HYDROcodone 10MG/APAP 325MG 1 EA TAB PO PRN ×2 (09:34→17:30)
[2018-12-03] MEDS: FUROSEMIDE 40 MG TAB PO SCH ×2 (09:35→21:18)
[2018-12-03] MEDS: BIFIDOBACTERIUM INFANTIS 4 MG CAP PO SCH (09:35)
[2018-12-03] MEDS: PRIMIDONE 50 MG TAB PO SCH ×2 (09:35→21:19)
[2018-12-03] MEDS: POTASSIUM CHLORIDE 20 MEQ TAB PO SCH (09:35)
[2018-12-03] MEDS: ISOSORBIDE MONONITRATE (IMDUR) 30 MG TAB PO SCH (09:35)
[2018-12-03] MEDS: FERROUS SULFATE 325 MG TAB PO SCH (09:35)
[2018-12-03] MEDS: FLUTICASONE PROP 0.05% NASAL 16 GM BTTL BNAS SCH (11:30)
--- NOTE | 2018-12-03 13:27 | PN ---
DATE: 12/03/18 SUPERVISING PHYSICIAN: Eleazar Shukla M.D. SUBJECTIVE: The patient has had some return of her tremors which she attributes to the restarting of her Gabapentin. She has not had any shortness of breath, chest pains. She denied any palpitations and has no further complaints. OBJECTIVE: VITAL SIGNS: Heart rate is still ranging between 99 and 118 and irregular rate with blood pressure 122/76, respirations 18, satting 95% on 3 liters nasal cannula with temperature 98.2. I's and O's show a negative balance of 1350 with 800 in, 2150 out. Weight is 176 kilos. GENERAL: The patient is resting comfortably. Appears to be in no acute distress. CHEST: Sounds were diminished but no notable rhonchi, wheezing or rales, just diminished throughout due to body habitus. HEART: Slightly irregular rate and rhythm. ABDOMEN: Morbidly obese but soft, non-tender. Positive bowel sounds. EXTREMITIES: Trace of edema. NEUROLOGIC: She is alert and oriented times three. LABORATORY: No additional laboratory. RADIOLOGY: No radiographic studies. ASSESSMENT: 1. Chronic atrial fibrillation with rapid ventricular response requiring ongoing management with oral Cardizem for rate control with the patient being on chronic anticoagulation with Xarelto. The patient is now being transitioned to dual coverage with Cardizem and a beta wally to include Metoprolol. 2. Electrolyte imbalance with hypomagnesemia, possibly contributing to #1, resolved with treatment. 3. Pickwickian syndrome due to morbid obesity with body mass index greater than 65. 4. Hypertension. 5. Osteoarthritis. 6. Hyperlipidemia. 7. Aortic aneurysm being followed by Dr. Lauren. Last measurement in the chart was 4.2 cm. 8. History of chronic urinary tract infection with chronic indwelling Fitzgerald catheter due to body habitus with urinalysis pending. PLAN: The patient had fairly good control with 60 every 6 hours Diltiazem. At this point I am going to attempt to transition her to 240 mg controlled delivery and will add a beta wally with Metoprolol 25 mg b.i.d. Given that she has had some intolerance to this in the past, will certainly need to monitor closely. Hopefully if she stays stable and can have a controlled rate with this regimen, will be able to discharge her back to [facility]. Until then will continue to monitor and treat as needed. #[id number] [facility]
[2018-12-03] MEDS: LEVALBUTEROL NEBS 1.25 MG/3 ML VIAL NEB SCH (16:09)
[2018-12-03] MEDS: METOPROLOL TARTRATE 25 MG TAB PO SCH (16:28)
[2018-12-03] MEDS: RIVAROXABAN 10 MG TAB PO SCH (17:15)
[2018-12-03] MEDS: BENZONATATE PERLES 100 MG CAP PO PRN (21:23)
[2018-12-03] MEDS ORDERED: HYDROcodone 10MG/APAP 325MG 1 EA TAB PO ONE (23:00)
[2018-12-03] MEDS ORDERED: MELATONIN 3 MG TAB PO SCH (23:00)
[2018-12-03] MEDS ORDERED: diphenhydrAMINE HCL 25 MG CAP PO ONE (23:00)
[2018-12-03] MEDS: IV SET AND CAP CHANGE INJ INJ SCH (23:08)
[2018-12-04] MEDS: LEVALBUTEROL NEBS 1.25 MG/3 ML VIAL NEB SCH ×2 (01:00→08:06)
[2018-12-04] MEDS: LEVALBUTEROL NEBS 1.25 MG/3 ML VIAL NEB PRN (05:00)
[2018-12-04] MEDS: METOPROLOL TARTRATE 25 MG TAB PO SCH (07:51)
[2018-12-04] MEDS: PRIMIDONE 50 MG TAB PO SCH (08:23)
[2018-12-04] MEDS: ASCORBIC ACID 500 MG TAB PO SCH (08:23)
[2018-12-04] MEDS: CELECOXIB 100 MG CAP PO SCH (08:23)
[2018-12-04] MEDS: POTASSIUM CHLORIDE 20 MEQ TAB PO SCH (08:23)
[2018-12-04] MEDS: FUROSEMIDE 40 MG TAB PO SCH (08:23)
[2018-12-04] MEDS: BIFIDOBACTERIUM INFANTIS 4 MG CAP PO SCH (08:23)
[2018-12-04] MEDS: ISOSORBIDE MONONITRATE (IMDUR) 30 MG TAB PO SCH (08:23)
[2018-12-04] MEDS: GABAPENTIN 300 MG CAP PO SCH (08:23)
[2018-12-04] MEDS: FERROUS SULFATE 325 MG TAB PO SCH (08:24)
[2018-12-04] MEDS: FLUTICASONE PROP 0.05% NASAL 16 GM BTTL BNAS SCH (08:37)
[2018-12-04] MEDS: POLYVINYL ALCOHOL 1.4% OPHTH SOL 1 DROP BOTH_EYES SCH (08:37)
[2018-12-04] MEDS ORDERED: NON-FORMULARY MEDICATION 1 EA MIS (Fluticasone Propionate (Nasal) [Fluticasone Propionate] BNAS SCH (09:00)
[2018-12-04 10:33] VITALS: BP 127/88; TEMP 98; O2SAT 96
--- NOTE | 2018-12-04 20:35 | DS ---
SUPERVISING PHYSICIAN: Shashank Vidal M.D. ADMISSION DIAGNOSIS: 1. Chronic atrial fibrillation with rapid ventricular response requiring IV Cardizem and further initiation of oral Cardizem for rate control with the patient on chronic anticoagulation with Xarelto. 2. Electrolyte imbalance with hypomagnesemia, possibly contributing to #1. 3. Pickwickian syndrome due to morbid obesity with body mass index greater than 65. 4. Hypertension. 5. Osteoarthritis. 6. Hyperlipidemia. 7. Aortic aneurysm being followed by Dr. Lauren. Last measurement in the chart was 4.2 cm. 8. History of chronic urinary tract infection with chronic indwelling Fitzgerald catheter due to body habitus with urinalysis pending. DISCHARGE DIAGNOSIS: 1. Chronic atrial fibrillation with rapid ventricular response requiring ongoing management with oral Cardizem for rate control with the patient being on chronic anticoagulation with Xarelto. The patient is now being transitioned to dual coverage with Cardizem and a beta wally to include Metoprolol with the patient showing to have good stable heart rate. 2. Electrolyte imbalance with hypomagnesemia, possibly contributing to #1, resolved with treatment. 3. Pickwickian syndrome due to morbid obesity with body mass index greater than 65. 4. Hypertension. 5. Osteoarthritis. 6. Hyperlipidemia. 7. Aortic aneurysm being followed by Dr. Lauren. Last measurement in the chart was 4.2 cm. 8. History of chronic urinary tract infection with chronic indwelling Fitzgerald catheter due to body habitus with urinalysis pending. REASON FOR HOSPITALIZATION: Ms. Pineda is a 73-year-old female patient that resides at [facility]. She noted she had some increasing shortness of breath over the last two days. She reports that she finished a 10- day course of Levaquin yesterday for what was told to her she had the "crud." She noticed yesterday when she was doing her normal activities and they were trying to move her that her heart rate was increasing and she was getting significantly short of breath. Today, it worsened to the point that she had a noted heart rate on vital signs in the 130s and was taken to the Emergency Room for evaluation. She does take rate control medicines which include Lopressor and in the past been on Cardizem, but was taken off Cardizem due to issues with hypotension. She is also on chronic anticoagulation with Xarelto. She does have a history of Pickwickian syndrome a body mass index greater than 65 with current weight of 190 kg. At night, she wears BiPAP. She denied any shortness of breath or cough other than associated with palpitations. She was reporting no chest pains. She is bedridden. She has had femur fractures bilaterally and has had multiple surgeries in which they have been fixed and she is no longer able to ambulate. She normally gets moved with a Chelsey lift, but notes she was in her fairly normal state of health in the last week other than the "crud" and today the palpitations continued. Initial vital signs in the Emergency Room showed a heart rate of 140. EKG showed atrial fibrillation with rapid ventricular response. She was then treated with Cardizem IV which did provide good rate control into the 90s. Blood pressure was stable. In fact, she was hypertensive with blood pressure 142/97, but saturation was 94% on nasal cannula at 3 liters. She is O2 dependent. On room air, oxygen saturation was 82%. She was running a low grade fever at 99. Laboratory studies were fairly unremarkable. White count was within normal limits, no left shift. She did have elevated carbon dioxide at 41, but does have a history of Pickwickian and again is morbidly obese. Magnesium was low at 1.6. Calcium was normal at 8.7. Lactic acid was normal at 1.7. Troponin less than 0.02, BNP normal at 70. Given the patient's symptomatology, poor rate control and needing IV Cardizem initially for rate control, Dr. Perry, Emergency Room physician, requested the patient be admitted for help with further management of oral medications to keep her rate controlled. She is now going to be admitted in Observation with close cardiac telemetry and initiation of Cardizem. She was placed in Observation in stable condition. LABORATORY STUDIES: CBC on admission showed white count 8,000, hemoglobin 11.7, hematocrit 36.5, platelet count 267,000. Differential showed to be without a left shift. Chemistries on admission showed sodium 140, chloride 88, carbon dioxide 41. Anion gap was normal at 15, BUN 11, creatinine 0.43, lactic acid 1.7, calcium 8.6, magnesium low at 1.6, with replacement went up to 1.8. Liver functions showing to be within normal limits. Troponin was less than 0.02. MICROBIOLOGY: Blood cultures were drawn and remained negative at 3 days. RADIOLOGY: Chest x-ray on admission per radiology interpretation shows bilateral perihilar congestion, mild airspace opacities throughout the lungs, could be a combination of pulmonary edema or attenuated pulmonary markings due to suboptimal inspiratory volume. Please see that report for full details. Repeat chest x-ray after central line placed in the E. R., showed mild increase in atelectasis and vascular congestion. Lines were in place as noted above. Please see that report for details. HOSPITAL COURSE: Ms. Pineda was admitted for atrial fibrillation with RVR. She was started on Cardizem initially 30 mg every 6 hours and showed slow response. She required several IV doses of Cardizem again throughout the first night of admission. She was then increased to 60 mg every 6 hours which did show good response for 24 hours at which time she was transitioned to 240 mg controlled release as well as the addition of a beta wally with metoprolol 25 mg b.i.d. After that point she had good control of her heart rate between 79 and 96. Her initial vital signs on admission showed a heart rate of 140 with atrial fibrillation with RVR noted on 12-lead and blood pressure was 136/99. She was satting 82% on room air and placed on nasal cannula at 96% on 3 liters. She showed to be stable with regards to her heart rate. No other complicating factors were noted. It was felt that she had progressed well enough to continue with outpatient management and followup with cardiology. PLAN: Ms. Pineda was discharged on 12/04/18 to return back to [facility] by ambulance due to body habitus and needing multi-lifting partners. She was to see Dr. Lauren as scheduled with schedule sent to [facility]. She was to resume her home medications as per [facility] and return to the hospital should she have any concerning symptoms. Diet was regular diet as tolerated. Activity: She is bed bound but to turn every 2 hours. New medications at discharge included: 1. Align 8 mg daily. 2. Diltiazem 240 mg daily. 3. Metoprolol 25 mg twice daily. All other medications were resumed as previous. DISPOSITION: The patient was transported back to [facility] via EMS. Condition on discharge was stable and improving. #[id number] MTDD
[2018-12-07] MEDS ORDERED: ERGOCALCIFEROL 50000 UNIT PO SCH (08:00)
== END 2018-12-04 11:45 | DRG 309 ==
LOC: ER 15:48 → OBSVTOIN 20:40 → MS 20:40
PROVIDERS: ADMIT Nurse Practitioner Family; ATTEND Nurse Practitioner Family
PROC: 02HV33Z Insertion of Infusion Device into Superior Vena Cava, Percutaneous Approach (ICD-10-PCS; principal; 2018-11-30)
DX: I48.2 Chronic atrial fibrillation (principal); E66.2 Morbid (severe) obesity with alveolar hypoventilation; Z68.44 Body mass index [BMI] 60.0-69.9, adult; E83.42 Hypomagnesemia; J44.9 Chronic obstructive pulmonary disease, unspecified; K21.9 Gastro-esophageal reflux disease without esophagitis; I10 Essential (primary) hypertension; M19.90 Unspecified osteoarthritis, unspecified site; E78.5 Hyperlipidemia, unspecified; I71.4 Abdominal aortic aneurysm, without rupture; Z74.01 Bed confinement status; Z79.02 Long term (current) use of antithrombotics/antiplatelets; Z99.81 Dependence on supplemental oxygen; Z96.653 Presence of artificial knee joint, bilateral; Z96.642 Presence of left artificial hip joint; Z88.1 Allergy status to other antibiotic agents; Z88.2 Allergy status to sulfonamides; Z88.3 Allergy status to other anti-infective agents; Z87.440 Personal history of urinary (tract) infections; Z87.01 Personal history of pneumonia (recurrent); Z79.1 Long term (current) use of non-steroidal anti-inflammatories (NSAID); Z79.891 Long term (current) use of opiate analgesic; Z79.899 Other long term (current) drug therapy; Z86.14 Personal history of Methicillin resistant Staphylococcus aureus infection

== ENCOUNTER 2019-01-03 13:38 | Emergency (ER) | payer MEDICARE, MEDICAID ==
--- NOTE | 2019-01-03 15:02 | RAD ---
EXAM DESCRIPTION: Chest,1 View CLINICAL HISTORY: Hypoxia FINDINGS/ IMPRESSION: Comparison 11/30/2018 Cardiomegaly. Vascular congestion with interval improvement in interstitial edema from the previous study. Mild increase in the interstitium may represent residual edema. The patient is rotated. No alveolar consolidation or large effusion Electronically signed by: John Rosas MD 01/03/2019 2:59 PM CDT
[2019-01-03] MEDS ORDERED: MORPHINE SULFATE INJ 10 MG/ML VIAL IV ONE ×2 (17:08→19:24)
--- NOTE | 2019-01-03 18:26 | ED.PDOC ---
History of Present Illness - General Chief Complaint: Respiratory Problem Stated Complaint: low oxygen sats Time Seen by Provider: 01/03/19 14:01 Source: patient, RN notes reviewed, Vital Signs reviewed, family Exam Limitations: no limitations - History of Present Illness Initial Comments: 73 yo female with multiple medical problems sent by the senior care who reported that they had a hard time waking her up, she seemed confused & her pulse ox was in the 70s. The patient says she is in her usual state of health, that she was merely sleeping but admittedly while not wearing her BiPAP. She also says that today's pulse ox readings are below her baseline. She takes Xarelto but not for the last 2 days. She has several co-morbidities to account for hypoxia but no h/o DVT/PE. Timing/Duration: just prior to arrival Severity: mild Possible Cause: chronic episodes Worsening Factors: other - oxygen Associated Symptoms: denies symptoms - no changes to her chronic symptoms Respiratory Risk Factors: other - see problem list Allergies/Adverse Reactions: Allergies Cefazolin [From Ancef] Allergy (Unknown, Verified 12/01/18 04:12) Rash Mupirocin [From Bactroban] Allergy (Verified 12/01/18 04:12) Hives Mushroom Extract Complex Allergy (Verified 12/01/18 04:12) Sulfa Antibiotics Allergy (Verified 12/01/18 04:12) Other Made patient itch Levofloxacin [From Levaquin] Adverse Reaction (Verified 12/01/18 04:12) Blisters all over body adhesive tape Allergy (Intermediate, Uncoded 03/26/14 12:39) Rash pt got blisters Home Medications: Ambulatory Orders Celecoxib [Celebrex] 200 mg PO DAILY 06/27/12 Multiple Vitamins W/ Minerals [Multi Vitamin/Minerals Fu] 1 tab PO DAILY 06/27/12 Amlodipine Besylate [Norvasc] 10 mg PO DAILY 03/26/14 Ascorbic Acid [Vitamin C] 500 mg PO BID 03/26/14 Diltiazem HCl [Cardizem] 240 mg PO DAILY 03/26/14 Ergocalciferol [Vitamin D] 50,000 unit PO TH@0800 03/26/14 Ropinirole Hydrochloride [Requip] 2 mg PO BID 03/26/14 Diphenhydramine HCl 50 mg PO Q6H PRN 08/28/15 Isosorbide Mononitrate [Imdur] 30 mg PO DAILY 05/14/16 Magnesium Hydroxide [Milk Of Magnesia] 30 ml PO DAILY PRN 05/14/16 Primidone 250 mg PO BID 05/14/16 Rivaroxaban [Xarelto] 20 mg PO BEDTIME 05/14/16 Simethicone 80 mg PO Q6HR PRN 05/14/16 Acetaminophen [Tylenol] 650 mg PO Q6H PRN 11/07/16 Ferrous Sulfate 325 mg PO DAILY 11/07/16 Furosemide 40 mg PO BID 11/07/16 Levalbuterol HCl [Xopenex] 0.5 mg IN Q6H PRN 11/07/16 Loperamide HCl 2 mg PO Q6HR PRN MDD 8 MG 11/07/16 Potassium Chloride [Potassium Chloride ER] 20 meq PO DAILY 11/07/16 Tramadol HCl 100 mg PO BID PRN 11/07/16 Allopurinol 300 mg PO DAILY 09/24/17 Benzonatate Perles [Tessalon Perles] 100 mg PO Q8HR PRN 09/24/17 Dicyclomine HCl [Bentyl] 10 mg PO BID 09/24/17 Nystatin Powder 1 applic TOP QSHIFT PRN 09/24/17 Polyvinyl Alcohol [Artificial Tears] 2 drop BOTH_EYES QID 09/24/17 Esomeprazole Magnesium 40 mg PO DAILY PRN 12/01/18 HYDROcodone 10MG/APAP 325MG [[place] 10/325] 1 tab PO Q6HR PRN 12/01/18 Ipratropium-Albuterol [Ipratropium [place]/Albut 0.5-2.5 (3) mg/3Ml] 1 aleah INH DAILY PRN 12/01/18 Loratadine 10 mg PO DAILY 12/01/18 Bifidobacterium Infantis [Align] 8 mg PO DAILY cap 12/04/18 Fluticasone Prop 0.05% Nasal [Flonase Nasal Ballinger] 1 spray BNAS DAILY spray 12/04/18 Metoprolol Tartrate [Lopressor] 25 mg PO BIDFD tab 12/04/18 Hydroxyzine HCl 25 mg PO PRN 01/03/19 Review of Systems - Review of Systems Constitutional: States: no symptoms reported EENTM: States: no symptoms reported Respiratory: States: see HPI Cardiology: States: no symptoms reported Gastrointestinal/Abdominal: States: diarrhea Genitourinary: States: no symptoms reported Musculoskeletal: States: back pain Skin: States: no symptoms reported Neurological: States: no symptoms reported Hematologic/Lymphatic: States: no symptoms reported Past Medical History (General) - Patient Medical History Hx Seizures: No Hx Stroke: No Hx Dementia: No Hx Asthma: No Hx of COPD: Yes Hx Cardiac Disorders: Yes - blood clot in atrium Hx Congestive Heart Failure: No Hx Pacemaker: No Hx Hypertension: Yes Hx Thyroid Disease: No Hx Diabetes: No Hx Gastroesophageal Reflux: Yes Hx Renal Disease: No Hx Cancer: No Hx of HIV: No Hx Hepatitis C: No Hx MRSA: No MRSA Source:: Wound - Vaccination History Hx Tetanus, Diphtheria Vaccination: No Hx Influenza Vaccination: Yes - 2018 Hx Pneumococcal Vaccination: Yes - 2018 - Social History Hx Tobacco Use: No Hx Chewing Tobacco Use: No Hx Alcohol Use: No Hx Substance Use: No Hx Substance Use Treatment: No Hx Depression: No Hx Physical Abuse: No Hx Emotional Abuse: No Hx Suspected Abuse: No - Activities of Daily Living Fpc/Assisted Living (if applicable):: [facility] - Female History Patient : No Family Medical History - Family History Father Living Status: Hx Family Congestive Heart Failure: Yes Hx Family;Other: COPD Brother Living Status: Hx Family Cancer: Yes - Colon Cancer Mother Family History: No Known Living Status: Hx Cardiac Disease: Yes Hx Family Cancer: Yes - urinary bladder Physical Exam - Physical Exam General Appearance: Alert, Comfortable, No apparent distress, Obese ENT Exam: normal ENT inspection Neck: supple Respiratory: normal breath sounds, no respiratory distress Cardiovascular/Chest: systolic murmur, irregularly irregular Gastrointestinal/Abdominal: non tender, soft Extremity: normal capillary refill, pedal edema Neurologic: alert, normal mood/affect, oriented x 3 Skin Exam: normal color, warm/dry Progress - Progress Progress: 01/03/19 18:[address] scanner could not perform the CTA - unclear why. She agrees to transfer for the study. I have spoken with [facility] & she has been accepted in transfer. - Results/Orders Results/Orders: D-d 0.81 BNP 209 Hgb 13 Cr 0.54 Tr <0.02 - EKG/XRAY/CT EKG: Atrial - AF @ 95; nml axis, QRS, ST segments; flat T waves, Fibrillation XRAY: chest - improved vascular congestion - Consult/PCP Time Called: 18:31 - ED @ [place] Departure - Departure Clinical Impression: Hypoxemia Time of Disposition: 18:36 Disposition: Transfer to Hospital Condition: Fair Home Medications: Ambulatory Orders Celecoxib [Celebrex] 200 mg PO DAILY 06/27/12 Multiple Vitamins W/ Minerals [Multi Vitamin/Minerals Fu] 1 tab PO DAILY 1 08/28/11 Amlodipine Besylate [Norvasc] 10 mg PO DAILY 03/26/14 Ascorbic Acid [Vitamin C] 500 mg PO BID 03/26/14 Diltiazem HCl [Cardizem] 240 mg PO DAILY 03/26/14 Ergocalciferol [Vitamin D] 50,000 unit PO TH@0800 03/26/14 Ropinirole Hydrochloride [Requip] 2 mg PO BID 03/26/14 Diphenhydramine HCl 50 mg PO Q6H PRN 08/28/15 Isosorbide Mononitrate [Imdur] 30 mg PO DAILY 05/14/16 Magnesium Hydroxide [Milk Of Magnesia] 30 ml PO DAILY PRN 05/14/16 Primidone 250 mg PO BID 05/14/16 Rivaroxaban [Xarelto] 20 mg PO BEDTIME 05/14/16 Simethicone 80 mg PO Q6HR PRN 05/14/16 Acetaminophen [Tylenol] 650 mg PO Q6H PRN 11/07/16 Ferrous Sulfate 325 mg PO DAILY 11/07/16 Furosemide 40 mg PO BID 11/07/16 Levalbuterol HCl [Xopenex] 0.5 mg IN Q6H PRN 11/07/16 Loperamide HCl 2 mg PO Q6HR PRN MDD 8 MG 11/07/16 Potassium Chloride [Potassium Chloride ER] 20 meq PO DAILY 11/07/16 Tramadol HCl 100 mg PO BID PRN 11/07/16 Allopurinol 300 mg PO DAILY 09/24/17 Benzonatate Perles [Tessalon Perles] 100 mg PO Q8HR PRN 09/24/17 Dicyclomine HCl [Bentyl] 10 mg PO BID 09/24/17 Nystatin Powder 1 applic TOP QSHIFT PRN 09/24/17 Polyvinyl Alcohol [Artificial Tears] 2 drop BOTH_EYES QID 09/24/17 Esomeprazole Magnesium 40 mg PO DAILY PRN 12/01/18 HYDROcodone 10MG/APAP 325MG [[place] 10/325] 1 tab PO Q6HR PRN 12/01/18 Ipratropium-Albuterol [Ipratropium [place]/Albut 0.5-2.5 (3) mg/3Ml] 1 aleah INH DAILY PRN 12/01/18 Loratadine 10 mg PO DAILY 12/01/18 Bifidobacterium Infantis [Align] 8 mg PO DAILY cap 12/04/18 Fluticasone Prop 0.05% Nasal [Flonase Nasal Ballinger] 1 spray BNAS DAILY spray 12/04/18 Metoprolol Tartrate [Lopressor] 25 mg PO BIDFD tab 12/04/18 Hydroxyzine HCl 25 mg PO PRN 01/03/19 Transfer to Outside Facility - Transfer Information Accepting Facility: [facility] Reason for Transfer: needs CTA. Scanner here could not perform the test.
[2019-01-03 19:21] VITALS: BP 134/89; TEMP 97.4; O2SAT 97
== END 2019-01-03 20:25 | disposition short-term general hospital (02) ==
LOC: ER 13:38
DX: R09.02 Hypoxemia (principal); R01.1 Cardiac murmur, unspecified; J44.9 Chronic obstructive pulmonary disease, unspecified; I10 Essential (primary) hypertension; K21.9 Gastro-esophageal reflux disease without esophagitis; Z79.01 Long term (current) use of anticoagulants; Z79.899 Other long term (current) drug therapy; Z79.1 Long term (current) use of non-steroidal anti-inflammatories (NSAID); Z88.2 Allergy status to sulfonamides
CPT/HCPCS: 36415; 71045; 80048; 83880; 84484; 85025; 85379; 93005; J2270

== ENCOUNTER 2019-01-17 07:54 | Inpatient (IN) | payer MEDICARE, MEDICAID ==
--- NOTE | 2019-01-17 09:27 | RAD ---
Study: Single Frontal Radiograph of the Chest. Indication:hypoxia, ams Comparison: January 03, 2019 Impression: Patient rotated to the right. Cardiomegaly. Progressed patchy opacities throughout bilateral lungs which could reflect pulmonary edema or pneumonia. Follow-up to resolution recommended. Tiny left pleural effusion suspected. No pneumothorax. No acute osseous abnormality. Electronically signed by: Arnaldo Man MD 01/17/2019 9:24 AM CDT
[2019-01-17] MEDS ORDERED: IPRATROPIUM BROMIDE NEBS 0.5 MG/2.5 ML VIAL NEB ONE (11:55)
[2019-01-17] MEDS ORDERED: LEVALBUTEROL NEBS 1.25 MG/3 ML VIAL NEB ONE (11:55)
[2019-01-17] MEDS ORDERED: diltiaZEM HCL CD 180 MG CAP PO ONE (11:58)
--- NOTE | 2019-01-17 12:18 | ED.PDOC ---
History of Present Illness - General Chief Complaint: Respiratory Problem Stated Complaint: unresponsive Time Seen by Provider: 01/17/19 07:55 Source: patient Exam Limitations: no limitations - History of Present Illness Initial Comments: the patient is a 73-year-old female presenting to the emergency room secondary to acute respiratory failure. The patient is a resident of a long- term care facility. She was found by the staff there profoundly hypoxic and unresponsive. When EMS arrived she had a pulse oximetry reading of 51%. She did correct back up to the high 80s with 100% FiO2. BiPAP was started here immediately. The patient is apparently supposed to have either CPAP or BiPAP overnight. She did not have an ongoing staff entered her room this morning. She has had a history of respiratory failure and hypercapnia due to not wearing it in the past. The patient is morbidly obese. She was apparently doing well yesterday. She does have a perineal rash. The patient will open her eyes to a loud voice or to discomfort. She is unable to communicate. She does move all her extremities a little bit. Lungs are wet bilaterally. Scattered rails. Tel emetry monitoring shows A. fib with RVR. BiPAP was started immediately on the patient. Due to her limited ability to react, she is being monitored very closely. risk with BiPAP in this patient's condition is that she could vomit and aspirate with the mask on and not be able to get it off. For this reason she is being monitored very carefully. Family understand these risks and are in agreement with BiPAP use at this time rather than intubation. Timing/Duration: unsure Severity: severe Allergies/Adverse Reactions: Allergies Cefazolin [From Ancef] Allergy (Unknown, Verified 12/01/18 04:12) Rash Mupirocin [From Bactroban] Allergy (Verified 12/01/18 04:12) Hives Mushroom Extract Complex Allergy (Verified 12/01/18 04:12) Sulfa Antibiotics Allergy (Verified 12/01/18 04:12) Other Made patient itch Levofloxacin [From Levaquin] Adverse Reaction (Verified 12/01/18 04:12) Blisters all over body adhesive tape Allergy (Intermediate, Uncoded 03/26/14 12:39) Rash pt got blisters Home Medications: Ambulatory Orders Celecoxib [Celebrex] 200 mg PO DAILY 06/27/12 Ascorbic Acid [Vitamin C] 500 mg PO DAILY 03/26/14 Ergocalciferol [Vitamin D] 50,000 unit PO TH@0800 03/26/14 Ropinirole Hydrochloride [Requip] 2 mg PO BEDTIME 03/26/14 Diphenhydramine HCl 50 mg PO Q6H PRN 08/28/15 Isosorbide Mononitrate [Imdur] 30 mg PO DAILY 05/14/16 Magnesium Hydroxide [Milk Of Magnesia] 30 ml PO DAILY PRN 05/14/16 Primidone 250 mg PO BID 05/14/16 Rivaroxaban [Xarelto] 20 mg PO BEDTIME 05/14/16 Albuterol Sulfate Nebs [Proventil Nebs] 2.5 mg INH Q6H PRN 01/17/19 Arformoterol Tartrate Nebs [Brovana Nebs] 15 mcg NEB RTBID 01/17/19 Carvedilol 6.25 mg PO BID 01/17/19 Diltiazem HCl Coated Beads [Cardizem Cd] 360 mg PO DAILY 01/17/19 Umeclidinium [place] [Incruse Ellipta] 62.5 mcg IN DAILY 01/17/19 Review of Systems - Review of Systems Review of Systems: 01/17/19 12:18 patient unable to give review of systems secondary to clinical state. Past Medical History (General) - Patient Medical History Hx Seizures: No Hx Stroke: No Hx Dementia: No Hx Asthma: No Hx of COPD: Yes Hx Cardiac Disorders: Yes - Atrial fib Hx Congestive Heart Failure: Yes Hx Pacemaker: No Hx Hypertension: Yes Hx Thyroid Disease: No Hx Diabetes: No Hx Gastroesophageal Reflux: Yes Hx Renal Disease: No Hx Cancer: No Hx of HIV: No Hx Hepatitis C: No Hx MRSA: No MRSA Source:: Wound - Vaccination History Hx Tetanus, Diphtheria Vaccination: No Hx Influenza Vaccination: Yes - 2018 Hx Pneumococcal Vaccination: Yes - 2018 - Social History Hx Tobacco Use: No Hx Chewing Tobacco Use: No Hx Alcohol Use: No Hx Substance Use: No Hx Substance Use Treatment: No Hx Depression: No Hx Physical Abuse: No Hx Emotional Abuse: No Hx Suspected Abuse: No - Activities of Daily Living Longterm/Assisted Living (if applicable):: [facility] - Female History Patient : No Family Medical History - Family History Father Living Status: Hx Family Congestive Heart Failure: Yes Hx Family;Other: COPD Brother Living Status: Hx Family Cancer: Yes - Colon Cancer Mother Family History: No Known Living Status: Hx Cardiac Disease: Yes Hx Family Cancer: Yes - urinary bladder Physical Exam - Physical Exam General Appearance: Lethargic, Obvious distress, Ill Appearing, Obese Eye Exam: bilateral normal Ears, Nose, Throat: normal pharynx Neck: full range of motion, normal inspection Respiratory: respiratory distress, accessory muscle use, crackles, rales Cardiovascular/Chest: normal peripheral pulses, tachycardia, irregularly irregular Peripheral Pulses: radial,right: 2+, radial,left: 2+ Gastrointestinal/Abdominal: soft - morbidly obese Rectal Exam: other - significant perineal rash present Extremity: normal capillary refill, pedal edema, other - chronic limitations on range of motion secondary to previous injuries. Neurologic: aphasia, motor weakness - generalized, sensory deficit - difficult to assess, disoriented x 3, other - lethargic, gag reflex is strong however Skin Exam: pallor Comments: Vital Signs - 24 hr 01/17/19 01/17/19 01/17/19 08:00 08:07 08:26 Temperature 97.3 F L Pulse Rate [ 133 H 133 H Right Ulnar] Respiratory 20 18 18 Rate Blood Pressure 120/98 [Right Arm] O2 Sat by Pulse 92 L 93 L Oximetry 01/17/19 01/17/19 01/17/19 08:41 09:00 10:00 Temperature Pulse Rate [ 110 H 111 H Right Ulnar] Respiratory 20 18 20 Rate Blood Pressure 113/75 108/75 [Right Arm] O2 Sat by Pulse 92 L 95 Oximetry 01/17/19 01/17/19 01/17/19 10:28 11:00 11:56 Temperature 97.3 F L Pulse Rate [ 108 H 107 H Right Ulnar] Respiratory 23 20 20 Rate Blood Pressure 96/76 116/99 [Right Arm] O2 Sat by Pulse 93 L Oximetry Progress - Progress Progress: 01/17/19 12:22 the patient's a 73-year-old female presenting to emergency room secondary to respiratory failure likely due to not wearing her BiPAP overnight. The patient is doing better at this point. She has alert though still confused. She is able to converse with her relatives. She does seem to be moving all extremities. Pulmonary edema appears to be resolving with the BiPAP. Hypercapnia and respiratory acidosis appear to be improving with the BiPAP. she has received a dose of her Cardizem as well as a breathing treatment here. The patient will be admitted for further care of these issues. Medications will of course have to be continued for her numerous chronic medical problems as well as care for her perineal rash. Once enough staff are available she will also n eed to be turned over completely to have a good examination of her backside, now that her respiratory status is hopefully improving enough to tolerate that. 01/17/19 12:26 critical care time spent on this patient is about an hour and 15 minutes excluding otherwise billable procedures. - Results/Orders Results/Orders: Laboratory Tests 01/17/19 01/17/19 01/17/19 08:26 08:27 08:27 WBC RBC Hgb Hct MCV MCH MCHC RDW Plt Count MPV Absolute Neuts (auto) Absolute Lymphs (auto) Absolute Monos (auto) Absolute Eos (auto) Absolute Basos (auto) Neutrophils % Lymphocytes % Monocytes % Eosinophils % Basophils % PT INR PTT (SP) pCO2 94 H* pO2 83 HCO3 39.2 ABG pH 7.240 L* ABG O2 Saturation 98.6 ABG Base Excess 9.1 ABG Deoxyhemoglobin 1.4 Oxyhemoglobin % 95.9 Carboxyhemoglobin % 0.9 Methemoglobin % Sat 1.8 H Calc Total Hemoglobin 11.2 L Sodium 144 Potassium 4.0 Chloride 98 L Carbon Dioxide 36 H Anion Gap 14.0 BUN 16 Creatinine 0.73 BUN/Creatinine Ratio 21.9 H Random Glucose 133 H Serum Osmolality 289.9 Lactic Acid 0.7 Calcium 9.1 Total Bilirubin 0.5 AST 21 ALT 19 Alkaline Phosphatase 109 Creatine Kinase 14 L CK-MB (CK-2) 1.8 CK-MB (CK-2) % Not Reportable Troponin I 0.02 B-Natriuretic Peptide 335.0 H* Serum Total Protein 7.5 Albumin 3.1 L Globulin 4.4 H Albumin/Globulin Ratio 0.7 L 01/17/19 01/17/19 01/17/19 08:27 08:27 10:55 WBC 7.4 RBC 3.80 L Hgb 12.1 Hct 38.5 MCV 101.2 H MCH 31.9 H MCHC 31.5 L RDW 15.9 H Plt Count 177 MPV 8.2 Absolute Neuts (auto) 6.20 Absolute Lymphs (auto) 0.50 L Absolute Monos (auto) 0.60 Absolute Eos (auto) 0.10 Absolute Basos (auto) 0.00 Neutrophils % 83.3 H Lymphocytes % 6.8 L Monocytes % 8.4 Eosinophils % 1.3 Basophils % 0.2 PT 10.3 INR 1.03 PTT (SP) 23.4 pCO2 79 H pO2 95 HCO3 39.6 ABG pH 7.320 L ABG O2 Saturation 99.5 H ABG Base Excess 10.7 ABG Deoxyhemoglobin 0.5 Oxyhemoglobin % 96.7 Carboxyhemoglobin % 0.9 Methemoglobin % Sat 2.0 H Calc Total Hemoglobin 12.4 Sodium Potassium Chloride Carbon Dioxide Anion Gap BUN Creatinine BUN/Creatinine Ratio Random Glucose Serum Osmolality Lactic Acid Calcium Total Bilirubin AST ALT Alkaline Phosphatase Creatine Kinase CK-MB (CK-2) CK-MB (CK-2) % Troponin I B-Natriuretic Peptide Serum Total Protein Albumin Globulin Albumin/Globulin Ratio chest x-ray consistent with pulmonary edema. EKG shows atrial fibrillation with RVR at a rate of 123 bpm. Incomplete right bundle branch block. No definitive ST segment or T-wave changes indicative of ischemia. Normal QT interval. Departure - Departure Clinical Impression: Hypoxic encephalopathy, Acute pulmonary edema, Acute respiratory acidosis Respiratory failure with hypoxia and hypercapnia Qualifiers: Chronicity: acute on chronic Qualified Code(s): J96.21 - Acute and chronic respiratory failure with hypoxia; J96.22 - Acute and chronic respiratory failure with hypercapnia Disposition: Admit Patient Departure Forms: ED Discharge - Pt. Copy, Patient Portal Self Enrollment Referrals: ZAC MANCILLA [Primary Care Provider] - 1-2 Weeks Home Medications: Ambulatory Orders Celecoxib [Celebrex] 200 mg PO DAILY 06/27/12 Ascorbic Acid [Vitamin C] 500 mg PO DAILY 03/26/14 Ergocalciferol [Vitamin D] 50,000 unit PO TH@0800 03/26/14 Ropinirole Hydrochloride [Requip] 2 mg PO BEDTIME 03/26/14 Diphenhydramine HCl 50 mg PO Q6H PRN 08/28/15 Isosorbide Mononitrate [Imdur] 30 mg PO DAILY 05/14/16 Magnesium Hydroxide [Milk Of Magnesia] 30 ml PO DAILY PRN 05/14/16 Primidone 250 mg PO BID 05/14/16 Rivaroxaban [Xarelto] 20 mg PO BEDTIME 05/14/16 Albuterol Sulfate Nebs [Proventil Nebs] 2.5 mg INH Q6H PRN 01/17/19 Arformoterol Tartrate Nebs [Brovana Nebs] 15 mcg NEB RTBID 01/17/19 Carvedilol 6.25 mg PO BID 01/17/19 Diltiazem HCl Coated Beads [Cardizem Cd] 360 mg PO DAILY 01/17/19 Umeclidinium [place] [Incruse Ellipta] 62.5 mcg IN DAILY 01/17/19 Decision To Admit - Decistion To Admit Decision to Admit Reason: Medical Nature Decision to Admit Date: 01/17/19 Decision to Admit Time: 12:28
--- NOTE | 2019-01-17 13:06 | HP ---
SUPERVISING PHYSICIAN: Eleazar Shukla M.D. CHIEF COMPLAINT: Unresponsive and respiratory issues. HISTORY OF PRESENT ILLNESS: This is a 73 year-old female patient who came to the Emergency Room today secondary to acute respiratory failure. She is a residential resident of [facility]. She was found by the staff this morning profoundly hypoxic and unresponsive. When EMS arrived she had an O2 sat of 51%. She does use BiPAP at the facility. She is supposed to use it at least at night and sometimes CPAP or BiPAP during the day. She did not have her BiPAP on and she frequently takes it off. After they replaced her BiPAP she started to become more alert. She is morbidly obese with a BMI of greater than 60. She had recently been discharged from [facility] in [place]. We do not have the records at this time, but reportedly she was doing well as of yesterday. She has a significant history of respiratory failure with hypercapnia because she takes her mask off and she will tell you she does not like it. She was hooked up to the monitor and she was in atrial fibrillation with rapid ventricular response and she does have a history of atrial fibrillation. Laboratory was obtained. Her electrolytes are basically within normal limits with the exception of her chloride was 98, carbon dioxide 36, BUN 16, creatinine 0.73, glucose 133, lactic acid 0.7. BNP was 335. WBCs are 7.4 with hemoglobin 12.1, hematocrit 38.5. She did have a left shift on her differential. Blood gas initially showed a pCO2 of 94, pO2 of 83, bicarb 39.2 and pH was 7.24, O2 sat was 98%. Two and a half hours after placing her on BiPAP, her pCO2 had improved to 79, pO2 was 95, bicarb 39.6 with pH of 7.32 and O2 sats were 99%. Chest x-ray showed that she was rotated to the right but there was progressed patchy opacities throughout bilateral lungs which could reflect pulmonary edema or pneumonia. Followup to resolution is recommended with a tiny left pleural effusion. No pneumothorax. No acute osseous abnormality. Her vital signs after stabilizing showed temperature 97.3, heart rate 133, blood pressure 120/98, respiratory rate 18, O2 sat 93%. She was started back on her Cardizem. Her heart rate went down to around 100 to 110. I was called for hospital admission. PAST MEDICAL HISTORY: 1. 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 2. Hyperlipidemia. 3. Hypertension. 4. Osteoarthritis. 5. Chronic atrial fibrillation with a previous history of a thrombus on Xarelto. 6. History of abdominal aortic aneurysm followed by Dr. Lauren. Her last measurement in 2017 showed a 4.2 cm abdominal aortic aneurysm. 7. History of multiple urinary tract infections with a chronic Fitzgerald catheter. 8. 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 PAST SURGICAL HISTORY: 1. Cholecystectomy. 2. Bilateral knee replacement. 3. Left total hip replacement. 4. Bilateral shoulder surgery. 5. Right elbow surgery. CURRENT MEDICATIONS: Per the EMR and awaiting verification. ALLERGIES: CEFAZOLIN, MUPIROCIN, MUSHROOM EXTRACT COMPLEX, SULFA ANTIBIOTICS, LEVAQUIN AND ADHESIVE TAPE. FAMILY HISTORY: Positive for heart failure and Alzheimer's. SOCIAL HISTORY: She is a resident of [facility]. She is disabled. There is no history of tobacco, ETOH or illicit drug use. REVIEW OF SYSTEMS: GENERAL: Positive for fatigue and negative for fever or weight changes. HEENT: Negative for sinus symptoms, ear pain, sore throat or vision changes. RESPIRATORY: As per history of present illness. CARDIOVASCULAR: Positive for a history of atrial fibrillation. Negative for chest pain, palpitations. GASTROINTESTINAL: Negative for nausea, vomiting. She has had frequent episodes of antibiotic associated diarrhea but that was usually after taking Levaquin. MUSCULOSKELETAL: She is bedridden and rarely gets out of bed. She is bed bound at [facility]. NEUROLOGIC: Negative for headaches, seizures, but she has a significant history of hypoxic encephalopathy due to her hypercapnic respiratory problems. SKIN: Negative for lesions or rashes, although it is reported that she does have a breakdown on her buttocks. PHYSICAL EXAMINATION: VITAL SIGNS: Temperature 96.9, heart rate 103, blood pressure 139/95, respiratory rate is between 20 and 27, O2 sat is around 93% on the BiPAP, although she frequently takes her BiPAP machine off and becomes quite hypoxic with her O2 sats dropping into the low 80s. GENERAL: This is a morbidly obese female who is lying in her bed, although her O2 sats say 83% she is in no acute distress and she does answer most questions appropriately. HEENT: Normocephalic and atraumatic. Pupils are equal and reactive. Oropharynx is clear. NECK: Supple without mass. RESPIRATORY: Diminished breath sounds throughout. Very difficult to auscultate due to body mass. There is some scattered rhonchi in the upper portions of her apices. CHEST: There is equal rise and fall of the chest with inspiration and expiration. CARDIOVASCULAR: Irregular rate and rhythm. Her current heart rate is between 103 and 110. Atrial fibrillation on the dialysis tech. ABDOMEN: Soft, nondistended, non-tender. Bowel sounds are positive. BACK: Unable to examine due to body habitus. GENITOURINARY: She has a chronic Fitzgerald catheter in place. NEUROLOGIC: She is awake, alert and oriented times three. INTEGUMENT: Deferred at this time until we have assistance with turning the patient to examine her back side. LABORATORY: Labs and films are as per the History of Present Illness. ASSESSMENT: 1. Acute hypercapnic respiratory failure with respiratory acidosis. 2. Bilateral pneumonia most likely healthcare acquired. She has recently been in the hospital as well as she lives at a half-way and possibly contributing to #1. 3. Pickwickian syndrome on BiPAP chronically. She does have a body mass index greater than 60. 4. Poor medical compliance. The patient does not wear her BiPAP as previously ordered. 5. Pulmonary edema versus congestive heart failure with no known diagnosis of congestive heart failure. She did have a BNP of 335. 6. Atrial fibrillation presently on a calcium channel wally as well as a beta wally and anticoagulated with Xarelto. 7. Morbid obesity. Her body mass index is 62. 8. Hypertension on medications. 9. History of abdominal aortic aneurysm followed by Dr. Lauren. PLAN: Will admit the patient to the hospital. She will have aggressive pulmonary hygiene including she will be placed on her BiPAP as well as pulse oximetry and telemetry monitoring. Due to her multiple allergies and most likely being healthcare acquired pneumonia, I will treat her with Zosyn and I will also give her an extra dose of Lasix today. Will reevaluate her tomorrow after I obtain an echocardiogram. Her home medications will be restarted. The patient is a DNR and I have explained to the family and the patient that due to her multiple complications and morbidities that her prognosis is very poor. I also did blood cultures prior to starting the Zosyn. A urinalysis will also be obtained. Will continue to monitor closely and follow as needed. #[id number] [facility]
[2019-01-17] MEDS ORDERED: methylPREDNISolone SODIUM SUC 125 MG/2 ML VIAL IV ONE (16:05)
[2019-01-17] MEDS ORDERED: SODIUM CHLORIDE 0.9% (FLUSH) 10 ML SYG IV PRN (16:06)
[2019-01-17] MEDS ORDERED: IPRATROPIUM BROMIDE NEBS 0.5 MG/2.5 ML VIAL NEB PRN (16:06)
[2019-01-17] MEDS ORDERED: ONDANSETRON INJ 4 MG/2 ML VIAL IV PRN (16:06)
[2019-01-17] MEDS ORDERED: PIPERACILLIN/TAZOBACTAM 3.375 GM in SODIUM CHLORIDE 0.9% 100ML 100 ML IVPB ONE (16:14)
[2019-01-17] MEDS ORDERED: SODIUM CHLORIDE 0.45% 1000ML 1,000 ML IVS ONE (16:14)
[2019-01-17] MEDS ORDERED: IV SET AND CAP CHANGE INJ INJ SCH (16:30)
[2019-01-17] MEDS ORDERED: PIPERACILLIN/TAZOBACTAM 3.375 GM VIAL IVPB ONE ×2 (16:56→19:37)
[2019-01-17] MEDS ORDERED: SODIUM CHLORIDE 0.9% 100ML 0 ML IVPB ONE (16:57)
[2019-01-17] MEDS: PIPERACILLIN/TAZOBACTAM 3.375 GM in SODIUM CHLORIDE 0.9% 100ML 100 ML IVPB SCH ×3 (17:00→22:33)
[2019-01-17] MEDS ORDERED: SODIUM CHLORIDE 0.9% 100ML 100 ML IVPB ONE (19:38)
[2019-01-17] MEDS: ARFORMOTEROL TARTRATE 15 MCG/2 ML NEB NEB SCH (20:28)
[2019-01-17] MEDS: IPRATROPIUM BROMIDE NEBS 0.5 MG/2.5 ML VIAL NEB SCH (20:28)
[2019-01-17] MEDS: PRIMIDONE 50 MG TAB PO SCH (21:41)
[2019-01-17] MEDS: SODIUM CHLORIDE 0.9% (FLUSH) 10 ML SYG IV SCH (21:42)
[2019-01-17] MEDS: CARVEDILOL 12.5 MG TAB PO SCH (21:42)
[2019-01-17] MEDS: RIVAROXABAN 10 MG TAB PO SCH (21:42)
[2019-01-18] MEDS ORDERED: PIPERACILLIN/TAZOBACTAM 3.375 GM VIAL IVPB ONE ×4 (00:55→19:35)
[2019-01-18] MEDS ORDERED: SODIUM CHLORIDE 0.9% 100ML 100 ML IVPB ONE ×4 (00:55→19:35)
[2019-01-18] MEDS: PIPERACILLIN/TAZOBACTAM 3.375 GM in SODIUM CHLORIDE 0.9% 100ML 100 ML IVPB SCH ×3 (00:57→17:05)
[2019-01-18] MEDS: ACETAMINOPHEN 325 MG TAB PO PRN ×2 (03:34→22:40)
[2019-01-18] MEDS: PANTOPRAZOLE SODIUM IV 40 MG VIAL IV SCH (06:06)
--- NOTE | 2019-01-18 08:17 | RAD ---
EXAM DESCRIPTION: Chest,1 View CLINICAL HISTORY: Pneumonia COMPARISON: January 17, 2019 FINDINGS: The cardiac silhouette is enlarged but stable from the prior exam. Bilateral interstitial and patchy alveolar opacities are noted, stable or only slightly worse from the prior exam accounting for differences in technique. No definite effusion. The lung volumes are within normal range. There is no pneumothorax or acute fracture. IMPRESSION: Cardiomegaly with bilateral interstitial and patchy alveolar opacities, all stable or only slightly worse from yesterday. Differential considerations include edema, especially CHF. Pneumonia is an additional consideration. Electronically signed by: Antonio Carter MD 01/18/2019 8:15 AM CDT
[2019-01-18] MEDS: PRIMIDONE 50 MG TAB PO SCH ×2 (08:24→20:48)
[2019-01-18] MEDS: ISOSORBIDE MONONITRATE (IMDUR) 30 MG TAB PO SCH (08:24)
[2019-01-18] MEDS: diltiaZEM HCL CD 180 MG CAP PO SCH (08:24)
[2019-01-18] MEDS: NON-FORMULARY MEDICATION 1 EA MIS (Umeclidinium Bromide [Incruse Ellipta] 62.5 MCG) IN SCH (08:25)
[2019-01-18] MEDS: CARVEDILOL 12.5 MG TAB PO SCH ×2 (08:25→20:48)
[2019-01-18] MEDS: SODIUM CHLORIDE 0.9% (FLUSH) 10 ML SYG IV SCH ×2 (08:31→20:48)
[2019-01-18] MEDS: IPRATROPIUM BROMIDE NEBS 0.5 MG/2.5 ML VIAL NEB SCH ×4 (08:48→20:28)
[2019-01-18] MEDS: ARFORMOTEROL TARTRATE 15 MCG/2 ML NEB NEB SCH ×2 (08:48→20:28)
[2019-01-18] MEDS ORDERED: FLUCONAZOLE 150 MG TAB PO ONE (10:25)
[2019-01-18] MEDS ORDERED: FUROSEMIDE INJ 40 MG/4 ML VIAL IV ONE (10:30)
--- NOTE | 2019-01-18 15:12 | PN ---
SUPERVISING PHYSICIAN: Eleazar Shukla MD DATE: 01/18/19 SUBJECTIVE: The patient is lying in her bed. She is on her oxygen via nasal cannula. She complains of coughing and shortness of breath. We discussed staying on her BiPAP as much as possible. Otherwise, no chest pain, no nausea or vomiting. Her daughter is at the bedside and we discussed her treatment plan. OBJECTIVE: VITAL SIGNS: Temperature 98.7. Heart rate 97. Blood pressure 126/87. Respiratory rate 24 to 26. O2 saturation 95% on her BiPAP. O2 saturations drop into the upper 80s when she is on nasal cannula. RESPIRATORY: Diminished breath sounds throughout, very difficult to ascertain her breath sounds. CARDIAC: Regular rate and rhythm. At times, she becomes tachycardic when she is off of her BiPAP. GASTROINTESTINAL: Abdomen is soft, nondistended, nontender. She is morbidly obese. Bowel sounds are positive. NEUROLOGIC: Awake and alert. LABORATORY: WBCs 5.7, hemoglobin 11.9, hematocrit 37.3, neutrophils 80.6. Electrolytes are basically within normal limits with the exception of her chloride slightly low at 97. Carbon dioxide is high at 37. Her urinalysis shows 100 urine protein, small amount of urine blood, trace of urine leukocyte esterase, greater than 100 urine WBCs and 2+ budding urine yeast. Sputum culture is pending. Urine culture pending. Preliminary blood cultures are negative to date. Chest x-ray shows cardiomegaly with bilateral interstitial and patchy alveolar opacities, all stable or only slightly worse from yesterday. Differential considerations include edema especially CHF, pneumonia is additional consideration. All other labs and films have been reviewed via the EMR. ASSESSMENT: 1. Acute hypercapnic respiratory failure with respiratory acidosis. 2. Bilateral pneumonia most likely healthcare acquired. She has recently been in the hospital as well as she lives at a custodial and possibly contributing to #1. 3. Pickwickian syndrome on BiPAP chronically. She does have a body mass index greater than 60. 4. Poor medical compliance. The patient does not wear her BiPAP as previously ordered. 5. Pulmonary edema versus congestive heart failure with no known diagnosis of congestive heart failure. She did have a BNP of 335. 6. Atrial fibrillation presently on a calcium channel wally as well as a beta wally and anticoagulated with Xarelto. 7. Morbid obesity. Her body mass index is 62. 8. Hypertension on medications. 9. History of abdominal aortic aneurysm followed by Dr. Lauren. 10. Urinary tract infection as well as having yeast present in her urine. She does have a history of chronic urinary tract infections. She does have a permanent indwelling catheter. PLAN: We will continue present supportive care. She has refused most of her pulmonary hygiene including frequently she refuses to wear her BiPAP. I cautioned the patient and the family at length that her not wearing her BiPAP could be detrimental to her condition and that we would not be able to fix her chronic condition, but she could help by wearing her BiPAP. I did give her a dose of Diflucan today for the yeast in her urine. The Zosyn should cover her urinary tract infection until her cultures come back. I have ordered an echocardiogram to check for cardiac function and I am still awaiting results. I have given her an extra dose of Lasix today as well as ordered lab and chest x- ray in the morning. Most likely she can bedside tomorrow or the next day back to [facility] with close followup with her primary care physician, Dr. Brown, as well as a pulmonary consult and a cardiology appointment with Dr. Lauren in the next few weeks. We will continue to monitor the patient closely and follow as needed. #[id number] [facility]
[2019-01-18] MEDS: LOPERAMIDE CAP 2 MG CAP PO PRN (19:45)
[2019-01-18] MEDS: RIVAROXABAN 10 MG TAB PO SCH (20:48)
[2019-01-18] MEDS: BIFIDOBACTERIUM INFANTIS 4 MG CAP PO SCH (20:48)
[2019-01-18] MEDS ORDERED: MELATONIN 3 MG TAB PO SCH (21:00)
[2019-01-19] MEDS: PIPERACILLIN/TAZOBACTAM 3.375 GM in SODIUM CHLORIDE 0.9% 100ML 100 ML IVPB SCH ×2 (00:38→08:18)
[2019-01-19] MEDS: PANTOPRAZOLE SODIUM IV 40 MG VIAL IV SCH (06:12)
--- NOTE | 2019-01-19 07:00 | RAD ---
PROVIDED CLINICAL HISTORY/REASON FOR EXAM: pna Comparison: Most recent prior available Findings: Number of images: 1 Location: Frontal Chest Stable cardiomegaly. Improved pulmonary vascular congestion. Decreased small bilateral pleural effusions. Improved bilateral interstitial and airspace opacities. No pneumothorax. No acute osseous abnormality. Soft tissues are unremarkable. IMPRESSION: Improved CHF/Volume overload with small residual bilateral pleural effusions. Electronically signed by: Shawn Camargo MD 01/19/2019 6:58 AM CDT
[2019-01-19] MEDS ORDERED: SODIUM CHLORIDE 0.9% 100ML 100 ML IVPB ONE (07:15)
[2019-01-19] MEDS ORDERED: PIPERACILLIN/TAZOBACTAM 3.375 GM VIAL IVPB ONE (07:15)
[2019-01-19] MEDS: LOPERAMIDE CAP 2 MG CAP PO PRN (08:10)
[2019-01-19] MEDS: ISOSORBIDE MONONITRATE (IMDUR) 30 MG TAB PO SCH (08:11)
[2019-01-19] MEDS: PRIMIDONE 50 MG TAB PO SCH (08:11)
[2019-01-19] MEDS: diltiaZEM HCL CD 180 MG CAP PO SCH (08:11)
[2019-01-19] MEDS: BIFIDOBACTERIUM INFANTIS 4 MG CAP PO SCH (08:11)
[2019-01-19] MEDS: CARVEDILOL 12.5 MG TAB PO SCH (08:11)
[2019-01-19] MEDS: SODIUM CHLORIDE 0.9% (FLUSH) 10 ML SYG IV SCH (08:18)
[2019-01-19] MEDS: NON-FORMULARY MEDICATION 1 EA MIS (Umeclidinium Bromide [Incruse Ellipta] 62.5 MCG) IN SCH (08:18)
[2019-01-19] MEDS: ARFORMOTEROL TARTRATE 15 MCG/2 ML NEB NEB SCH (08:33)
[2019-01-19] MEDS: IPRATROPIUM BROMIDE NEBS 0.5 MG/2.5 ML VIAL NEB SCH (08:33)
[2019-01-19 10:55] VITALS: BP 121/79; TEMP 97.5; O2SAT 97
--- NOTE | 2019-01-20 12:14 | DS ---
SUPERVISING PHYSICIAN: Eleazar Shukla MD DISCHARGE DIAGNOSIS: 1. Acute hypercapnic respiratory failure with respiratory acidosis. 2. Bilateral pneumonia most likely healthcare acquired. She has recently been in the hospital as well as she lives at a residential and possibly contributing to #1. 3. Pickwickian syndrome on BiPAP chronically. She does have a body mass index greater than 60. 4. Poor medical compliance. The patient does not wear her BiPAP as previously ordered. 5. Pulmonary edema versus congestive heart failure with no known diagnosis of congestive heart failure. She did have a BNP of 335. 6. Atrial fibrillation presently on a calcium channel wally as well as a beta wally and anticoagulated with Xarelto. 7. Morbid obesity. Her body mass index is 62. 8. Hypertension on medications. 9. History of abdominal aortic aneurysm followed by Dr. Lauren. 10. Urinary tract infection as well as having yeast present in her urine. She does have a history of chronic urinary tract infections. She does have a permanent indwelling catheter. HISTORY OF PRESENT ILLNESS: This is a 73 year-old female patient who came to the Emergency Room today secondary to acute respiratory failure. 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 She was found by the staff this morning profoundly hypoxic and unresponsive. When EMS arrived she had an O2 sat of 51%. She does use BiPAP at the facility. She is supposed to use it at least at night and sometimes CPAP or BiPAP during the day. She did not have her BiPAP on and she frequently takes it off. After they replaced her BiPAP she started to become more alert. She is morbidly obese with a BMI of greater than 60. She had recently been discharged from [facility] in [place]. We do not have the records at this time, but reportedly she was doing well as of yesterday. She has a significant history of respiratory failure with hypercapnia because she takes her mask off and she will tell you she does not like it. She was hooked up to the monitor and she was in atrial fibrillation with rapid ventricular response and she does have a history of atrial fibrillation. Laboratory was obtained. Her electrolytes are basically within normal limits with the exception of her chloride was 98, carbon dioxide 36, BUN 16, creatinine 0.73, glucose 133, lactic acid 0.7. BNP was 335. WBCs are 7.4 with hemoglobin 12.1, hematocrit 38.5. She did have a left shift on her differential. Blood gas initially showed a pCO2 of 94, pO2 of 83, bicarb 39.2 and pH was 7.24, O2 sat was 98%. Two and a half hours after placing her on BiPAP, her pCO2 had improved to 79, pO2 was 95, bicarb 39.6 with pH of 7.32 and O2 sats were 99%. Chest x-ray showed that she was rotated to the right but there was progressed patchy opacities throughout bilateral lungs which could reflect pulmonary edema or pneumonia. Followup to resolution is recommended with a tiny left pleural effusion. No pneumothorax. No acute osseous abnormality. Her vital signs after stabilizing showed temperature 97.3, heart rate 133, blood pressure 120/98, respiratory rate 18, O2 sat 93%. She was started back on her Cardizem. Her heart rate went down to around 100 to 110. I was called for hospital admission. HOSPITAL COURSE: The patient was admitted to the hospital. She was placed on the pneumonia guidelines and due to her multiple allergies and most likely she had healthcare acquired pneumonia, she was treated with Zosyn. She utilized her BiPAP as she did in the residential. Her home medications were restarted. An echocardiogram was ordered, so far no results have been given. She was given an extra Lasix as well as aggressive patient underwent hygiene. The patient could tolerate being off the BiPAP for some time, being awake and alert and answering appropriately but oxygen saturations would drop to the low 80s. She refused some of her pulmonary hygiene as well as frequently pulled her mask off. I explained to the patient and family at length that she would have a difficult time without her BiPAP if she did not continue aggressive pulmonary hygiene. Her clinical symptoms improved and she will be discharged back to [facility] in fair but stable condition. LABORATORY: WBCs remained stable, initially was 7,400 and today is 5,000. Her hemoglobin and hematocrit are also stable with it being 11 and 33.8 respectively. Initially, she had a left shift differential but today her neutrophils are 75.5%. Blood gases as per history of present illness. Chemistries were basically unremarkable today. She did have 2+ budding yeast in her urine and was given some Diflucan. Her preliminary blood cultures showed no growth after 48 hours. Her urine is pending. Sputum culture is pending. She also complained of some diarrhea, her C-difficile was negative for both antigen and toxin. Her fecal WBCs for absent elevated fecal lactoferrin, no evidence of fecal WBCs. Her initial chest x-ray was per the history of present illness. Today's x-ray showed improved congestive heart failure/volume overload with small residual bilateral pleural effusions. DISCHARGE PLAN: The patient will be discharged back to [facility]. She is in fair but stable condition. She is to resume her previous diet. She is to increase her activity as tolerated. She is to followup with her primary care physician, Dr. Reeves, within the next one to two weeks. In addition to her routine medications, she is to continue to 10 days of Augmentin as well as some Align twice a day and I have given her a small dose of Lasix daily. She is to return to the hospital or followup with Dr. Reeves for any problems or complications. DISCHARGE MEDICATIONS: 1. Celebrex. 2. Requip. 3. Vitamin D. 4. Vitamin C. 5. Diphenhydramine. 6. Xarelto. 7. Primidone. 8. Milk of magnesia. 9. Imdur. 10. Carvedilol. 11. Diltiazem. 12. Brovana. 13. Proventil. 14. Incruse Ellipta 15. Augmentin. 16. Align. 17. Lasix. #[id number] MTDD
== END 2019-01-19 11:50 | DRG 189 ==
LOC: ER 07:54 → MS 13:04
PROVIDERS: ADMIT Nurse Practitioner Acute Care; ATTEND Nurse Practitioner Acute Care
DX: J96.02 Acute respiratory failure with hypercapnia (principal); J18.9 Pneumonia, unspecified organism; E66.2 Morbid (severe) obesity with alveolar hypoventilation; B37.49 Other urogenital candidiasis; J81.1 Chronic pulmonary edema; Z68.44 Body mass index [BMI] 60.0-69.9, adult; J44.0 Chronic obstructive pulmonary disease with (acute) lower respiratory infection; K21.9 Gastro-esophageal reflux disease without esophagitis; I48.2 Chronic atrial fibrillation; I10 Essential (primary) hypertension; I71.4 Abdominal aortic aneurysm, without rupture; E78.5 Hyperlipidemia, unspecified; M19.90 Unspecified osteoarthritis, unspecified site; Y95 Nosocomial condition; Z66 Do not resuscitate; Z91.19 Patient's noncompliance with other medical treatment and regimen; Z79.01 Long term (current) use of anticoagulants; Z96.653 Presence of artificial knee joint, bilateral; Z96.642 Presence of left artificial hip joint; Z88.1 Allergy status to other antibiotic agents; Z88.2 Allergy status to sulfonamides; Z74.01 Bed confinement status; Z79.1 Long term (current) use of non-steroidal anti-inflammatories (NSAID); Z79.899 Other long term (current) drug therapy

== ENCOUNTER 2019-01-22 19:45 | Emergency (ER) | payer MEDICARE, MEDICAID ==
[2019-01-22] MEDS ORDERED: MORPHINE SULFATE INJ 10 MG/ML VIAL IM ONE (21:32)
[2019-01-22] MEDS ORDERED: HYDROmorphone HCL INJ 2 MG/ML VIAL IV ONE (23:00)
--- NOTE | 2019-01-23 00:22 | ED.PDOC ---
History of Present Illness - General Chief Complaint: General Stated Complaint: short of breath, wants DNR enforced Time Seen by Provider: 01/22/19 19:46 Source: patient, family Exam Limitations: no limitations - History of Present Illness Initial Comments: the patient is a 73-year-old female in very poor health in general. She has chronic respiratory failure. She does have depression and anxiety issues. She has had a progressive decline in her functional status over the last few years. She has had multiple episodes ofhypoxic encephalopathy secondary to removing her BiPAP in the middle of the night. She also has chronic hypercapnia issues. She was actually brought here to the emergency room because the [facility] was apparently refusing to monitor her DNR and switch to comfort care according to her and her family's wishes. This is according to the family. The patient desaturates down to around 75% on room air. Supplemental oxygen when she is awake and alert she can keep an oxygen saturation around 90% however when she falls asleep she desaturates quickly even with supplemental oxygen to the low 70s. Had long discussion with the patient as well as with multiple family members including her medical power of consumer attorney. The patient's electrical discharge machine operator and multiple extended family members have come up to talk to her. In the end she has elected to go with comfort care. The patient is reluctant to go back to her previous facility to undergo comfort care measures however we have contacted more than 10 facilities tonight and none have been able to accept her for transfer for comfort care primarily due to a lack of bariatric beds. The patient is alert and oriented. She is fully capable of making this decision. All questions by family members have been answered. We have filled out an inpatient and outpatient DNR with required witnesses. [facility] has come up to consult. Severity: severe Improving Factors: nothing Worsening Factors: nothing Allergies/Adverse Reactions: Allergies Cefazolin [From Ancef] Allergy (Unknown, Verified 12/01/18 04:12) Rash Mupirocin [From Bactroban] Allergy (Verified 12/01/18 04:12) Hives Mushroom Extract Complex Allergy (Verified 12/01/18 04:12) Sulfa Antibiotics Allergy (Verified 12/01/18 04:12) Other Made patient itch Levofloxacin [From Levaquin] Adverse Reaction (Verified 12/01/18 04:12) Blisters all over body adhesive tape Allergy (Intermediate, Uncoded 03/26/14 12:39) Rash pt got blisters Home Medications: Ambulatory Orders Celecoxib [Celebrex] 200 mg PO DAILY 06/27/12 Ascorbic Acid [Vitamin C] 500 mg PO DAILY 03/26/14 Ergocalciferol [Vitamin D] 50,000 unit PO TH@0800 03/26/14 Ropinirole Hydrochloride [Requip] 2 mg PO BEDTIME 03/26/14 Diphenhydramine HCl 50 mg PO Q6H PRN 08/28/15 Isosorbide Mononitrate [Imdur] 30 mg PO DAILY 05/14/16 Magnesium Hydroxide [Milk Of Magnesia] 30 ml PO DAILY PRN 05/14/16 Primidone 250 mg PO BID 05/14/16 Rivaroxaban [Xarelto] 20 mg PO BEDTIME 05/14/16 Albuterol Sulfate Nebs [Proventil Nebs] 2.5 mg INH Q6H PRN 01/17/19 Arformoterol Tartrate Nebs [Brovana Nebs] 15 mcg NEB RTBID 01/17/19 Carvedilol 6.25 mg PO BID 01/17/19 Diltiazem HCl Coated Beads [Cardizem Cd] 360 mg PO DAILY 01/17/19 Umeclidinium Shiloh [Incruse Ellipta] 62.5 mcg IN DAILY 01/17/19 Amoxicillin & Pot Clavulanate [Augmentin Tab] 875 mg PO BID #20 tab 01/19/19 Bifidobacterium Infantis [Align] 4 mg PO BID #60 cap 01/19/19 Furosemide [Lasix] 20 mg PO DAILY #30 tab 01/19/19 Review of Systems - Review of Systems Constitutional: States: malaise, weakness EENTM: States: no symptoms reported Respiratory: States: short of breath - chronic Cardiology: States: edema - chronic Gastrointestinal/Abdominal: States: no symptoms reported Genitourinary: States: no symptoms reported - Fitzgerald catheter is in place Musculoskeletal: States: back pain - chronic Skin: States: other - chronic skin breakdown but does appear to be improving from last evaluation in her perineal area Neurological: States: depressed Endocrine: States: no symptoms reported All other Systems: No Change from Baseline Past Medical History (General) - Patient Medical History Hx Seizures: No Hx Stroke: No Hx Dementia: No Hx Asthma: No Hx of COPD: Yes Hx Cardiac Disorders: Yes - Atrial fib Hx Congestive Heart Failure: Yes Hx Pacemaker: No Hx Hypertension: Yes Hx Thyroid Disease: No Hx Diabetes: No Hx Gastroesophageal Reflux: Yes Hx Renal Disease: No Hx Cancer: No Hx of HIV: No Hx Hepatitis C: No Hx MRSA: No MRSA Source:: Wound - Vaccination History Hx Tetanus, Diphtheria Vaccination: No Hx Influenza Vaccination: Yes - 2018 Hx Pneumococcal Vaccination: Yes - 2018 Immunizations Up to Date: Yes - Social History Hx Tobacco Use: No Hx Chewing Tobacco Use: No Hx Alcohol Use: No Hx Substance Use: No Hx Substance Use Treatment: No Hx Depression: No Hx Physical Abuse: No Hx Emotional Abuse: No Hx Suspected Abuse: No - Activities of Daily Living [facility]isted [facility] (if applicable):: [facility] - Female History Patient is a Female of Child Bearing Age (10 -59 yrs old): No Patient : No - Triage Comment ED Triage Comment: patient requests no medical care, wants to be care and comfort only, does not want bi-pap. Family Medical History - Family History Father Living Status: Hx Family Congestive Heart Failure: Yes Hx Family;Other: COPD Brother Living Status: Hx Family Cancer: Yes - Colon Cancer Mother Family History: No Known Living Status: Hx Cardiac Disease: Yes Hx Family Cancer: Yes - urinary bladder Physical Exam - Physical Exam General Appearance: Alert, No apparent distress Eye Exam: bilateral normal Ears, Nose, Throat: hearing grossly normal, normal pharynx Neck: full range of motion, supple Respiratory: no respiratory distress - the patient is on BiPAP., no accessory muscle use, other - bibasilar rales. Cardiovascular/Chest: other - chronic edema. Regular rate. Irregular rhythm. Peripheral Pulses: radial,right: 2+, radial,left: 2+ Gastrointestinal/Abdominal: soft - morbidly obese Rectal Exam: deferred Back Exam: other - the patient does have some mild posterior skin breakdown. Extremity: normal range of motion, no calf tenderness, normal capillary refill, pedal edema Neurologic: urban design consultant II-XII nml as tested, alert, oriented x 3, other - she is obviously depressed. Skin Exam: normal color - aside from chronic areas of skin breakdown. Comments: Vital Signs - 24 hr 01/22/19 19:57 Temperature 98.9 F Pulse Rate [ 92 H Right] Respiratory 24 Rate Blood Pressure 130/84 [Right Arm] O2 Sat by Pulse 97 Oximetry Progress - Progress Progress: 01/23/19 00:24 the patient is a 73-year-old female presenting to the emergency room secondary to her chronic respiratory issues. The patient's situation has been discussed with the patient and with her medical power of consumer attorney as well as with the extended family. After consultation with her electrical discharge machine operator, the patient and her family have decided to switch care over to comfort care, hospice care[facility] has been contacted and is going to be assuming care for her at her alf facility. The patient has decided to discontinue her BiPAP. She has agreed to supplemental oxygen by nasal cannula. She has received a dose of Dilaudid and Ativan here for anxiety and chronic pain issues. Oxygen saturations do drop down into the 70s once the patient relaxes. The patient will be transferred back to her alf facility. The patient is a DNR. anticipated life expectancy is a couple of days. Departure - Departure Clinical Impression: Chronic respiratory failure with hypercapnia, End of life care Disposition: Discharge to SNF Condition: Serious Departure Forms: ED Discharge - Pt. Copy, Patient Portal Self Enrollment Referrals: ZAC MANCILLA [Primary Care Provider] - 1-2 Weeks Home Medications: Ambulatory Orders Celecoxib [Celebrex] 200 mg PO DAILY 06/27/12 Ascorbic Acid [Vitamin C] 500 mg PO DAILY 03/26/14 Ergocalciferol [Vitamin D] 50,000 unit PO TH@0800 03/26/14 Ropinirole Hydrochloride [Requip] 2 mg PO BEDTIME 03/26/14 Diphenhydramine HCl 50 mg PO Q6H PRN 08/28/15 Isosorbide Mononitrate [Imdur] 30 mg PO DAILY 05/14/16 Magnesium Hydroxide [Milk Of Magnesia] 30 ml PO DAILY PRN 05/14/16 Primidone 250 mg PO BID 05/14/16 Rivaroxaban [Xarelto] 20 mg PO BEDTIME 05/14/16 Albuterol Sulfate Nebs [Proventil Nebs] 2.5 mg INH Q6H PRN 01/17/19 Arformoterol Tartrate Nebs [Brovana Nebs] 15 mcg NEB RTBID 01/17/19 Carvedilol 6.25 mg PO BID 01/17/19 Diltiazem HCl Coated Beads [Cardizem Cd] 360 mg PO DAILY 01/17/19 Umeclidinium Shiloh [Incruse Ellipta] 62.5 mcg IN DAILY 01/17/19 Amoxicillin & Pot Clavulanate [Augmentin Tab] 875 mg PO BID #20 tab 01/19/19 Bifidobacterium Infantis [Align] 4 mg PO BID #60 cap 01/19/19 Furosemide [Lasix] 20 mg PO DAILY #30 tab 01/19/19 Transfer to Outside Facility - Transfer Information Accepting Provider:: [facility] Accepting Facility: [facility] Reason for Transfer: specialized care not available
[2019-01-23 01:08] VITALS: BP 82/67; TEMP 98.6; O2SAT 82
== END 2019-01-23 01:00 ==
LOC: ER 19:45
DX: J96.12 Chronic respiratory failure with hypercapnia (principal); F32.9 Major depressive disorder, single episode, unspecified; F41.9 Anxiety disorder, unspecified; J44.9 Chronic obstructive pulmonary disease, unspecified; I48.91 Unspecified atrial fibrillation; I50.9 Heart failure, unspecified; I11.0 Hypertensive heart disease with heart failure; K21.9 Gastro-esophageal reflux disease without esophagitis; Z66 Do not resuscitate; Z79.899 Other long term (current) drug therapy; Z88.8 Allergy status to other drugs, medicaments and biological substances; Z88.1 Allergy status to other antibiotic agents; Z88.2 Allergy status to sulfonamides
CPT/HCPCS: 94660; J1170; J2060; J2270